=== PATIENT | female | born 1985 | race Caucasian/White ===

== ENCOUNTER 2022-07-29 07:10 | Outpatient (REF) | payer BC, SELFPAY ==
[2022-07-29 11:11] LABS: MANUAL DIFF FLAG NO
[2022-07-29 11:21] LABS: Appearance Urine Turbid; Color Urine Yellow; Glucose Urine UA Negative (Negative); Leukocyte Esterase Urine Moderate (2+) (Negative); Nitrite Urine Negative (Negative); Specific Gravity - Urine >= 1.030 (1.005-1.025); UMIC TRIGGER UACC YES; Urine Blood Negative (Negative); Urine Ketones Negative (Negative); Urine Protein Trace mg/dL (Neg-Trace)
[2022-07-29 11:28] LABS: Basophils Absolute Auto 0.1 X10*3/uL (0.0-0.2); Basophils Percent Auto 0.7 % (0-2); Eosinophils Absolute Auto 0.3 X10*3/uL (0.0-0.4); Hematocrit 47.1 % (37.0-47.0); Hemoglobin 15.3 g/dl (12.0-16.0); Imm Gran Abs Auto 0.02 X10*3/uL (0.00-0.03); Imm Gran Pct Auto 0.3 % (0.0-0.4); Lymphocytes Absolute Auto 2.2 X10*3/uL (1.2-4.9); Lymphocytes Percent Auto 30.2 % (20-40); Mean Corpuscular HGB Conc 32.5 g/dl (31.0-35.0); Mean Corpuscular Hemoglobin 28.2 pg (27.0-33.0); Mean Corpuscular Volume 86.7 fL (80.0-98.0); Mean Platelet Volume 11.1 fL (9.4-12.3); Monocytes Absolute Auto 0.5 X10*3/uL (0.1-1.2); Monocytes Percent Auto 6.7 % (2-11); Neutrophils Absolute Auto 4.2 x10*3/uL (2.0-8.3); Neutrophils Percent Auto 58.1 % (45-73); Platelet Count 310 X10*3/uL (160-400); Red Blood Count 5.43 X10*6/uL (4.20-5.50); Red Cell Distribution Width 13.2 % (11.0-16.0); White Blood Count 7.3 X10*3/uL (4.8-10.8)
[2022-07-29 11:28] LABS: Bacteria Urine 4+ (None Seen); Hyaline Casts Urine 0-2 /LPF (0-2); Squamous Epithelial Cell Urine >20 /HPF (0-2); UACC Culture Trigger YES
[2022-07-29 12:03] LABS: Alanine Aminotransferase 19 U/L (0-31); Albumin Level 4.3 g/dL (3.5-5.0); Alkaline Phosphatase 57 U/L (39-117); Anion Gap 9 (12-20); Aspartate Amino Transferase 15 U/L (5-31); Bilirubin Total 0.4 mg/dL (0.0-1.0); Blood Urea Nitrogen 13 mg/dL (9-16); Calcium 9.5 mg/dL (8.4-10.2); Carbon Dioxide 28 mmol/L (22-29); Chloride 107 mmol/L (96-108); Cholesterol 176 mg/dL; Estimated Glomerular Filt Rate > 60; Glucose Fasting 94 mg/dL (60-99); HDL Cholesterol 43 mg/dL; LDL Cholesterol Calculated 109 mg/dl; Sodium 139 mmol/L (135-145); TSH reflex Free T4 1.96 uIU/mL (0.32-4.0); Total Protein 7.3 g/dL (6.5-8.0); Triglycerides 121 mg/dL
== END 2022-07-29 07:11 | disposition home or self-care (01) ==
LOC: HO.HMGCLDS 07:10
PROVIDERS: PCP Nurse Practitioner Family; Visit Provider Nurse Practitioner Family
DX: Z00.00 Encounter for general adult medical examination without abnormal findings (principal); R82.90 Unspecified abnormal findings in urine; E66.01 Morbid (severe) obesity due to excess calories
CPT/HCPCS: 36415; 80053; 80061; 81001; 84443; 85025; 87086

== ENCOUNTER → 2022-08-12 10:29 | Outpatient (BNVA) | payer BC, SELFPAY | PROVIDERS: PCP Nurse Practitioner Family; Visit Provider Physician Assistant Surgical ==

== ENCOUNTER 2022-09-22 12:49 | Outpatient (AMB) | payer BC, SELFPAY ==
--- NOTE | 2022-09-22 12:51 | A.OFFVIS_ITS ---
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 She heard about our program from social media. Her goal is to lose weight and achieve a healthy lifestyle. She reports first being concerned about her weight 16 years ago, highest weight to date was 252. Current weight is 247.2 with a BMI of 48.3. She has tried multiple methods of weight loss including fad diets without permanent results. She lives with her mom and . 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 She wakes at:?6 am, and goes to bed at?10 pm. Dinner is at 6 pm. Breakfast: breakfast wrap AM snack: protein bar (kodiak) Lunch: salad or leftovers from dinner PM snack: popcorn or another bar Dinner: chicken, steak, rice, pasta, veg After dinner: skip Other snacks: frozen bar, candy bar Liquids: 64 oz water, 1-2 cans coke per week, cran or pineapple juice Alcohol/marijuana/tobacco intake: rare etoh, no cannabis, no tobacco Exercise: gym membership [employer] and electric bike. GERD score: 2 JOVON score: 1 ESS score: 7 QOL score: 79 PFSH Surgical History Hx of hand surgery Family History Mother No problems noted. Father Diabetes Brother No problems noted. Son No problems noted. Daughter Asthma Social History Housing: House Alcohol intake: current Alcohol intake frequency: holidays/special occasions only Patient Tobacco Use Status: Former Tobacco user Quit Date: 20 years ago e-Cigarette/Vaping Use: Never Used Second Hand Smoke Exposure: No service: No Current occupational status: employed Current occupation: [employer] Current occupational exposures/hazards: Yes Cognitive needs: No Hearing needs: No Vision needs: No Review of Systems Const All systems reviewed & are unremarkable except as noted in HPI and below Physical Exam Vital Signs: Last Vital Signs Temp 98.6 F 09/22/22 12:55 Pulse 96 09/22/22 12:55 BP 168/81 H 09/22/22 12:55 Pulse Ox 96 09/22/22 12:55 Oxygen Delivery Method Room Air 09/22/22 12:55 BMI result Body Mass Index 48.0 Const General: cooperative, healthy appearing and no acute distress Orientation/consciousness: patient oriented x3 HEENT Head: Yes normal to inspection Ears: hearing grossly normal bilaterally General nose exam: Normal external nose present Face and sinus: Yes normal facial exam Eyes General: appearance normal, both eyes and all related structures Resp Effort & Inspection: normal respiratory effort Auscultation: clear to auscultation bilaterally Cardio Rate: regular rate Rhythm: regular rhythm Heart sounds: S1 normal heart sound present and S2 normal heart sound present GI Inspection: Yes normal to inspection, No distended and Yes obesity Palpation (GI): Soft to palpation, nontender and no guarding Auscultation: normal bowel sounds Skin General skin exam: no rashes or lesions noted Neuro General: patient oriented x3 Extrem General: No edema Psych Appearance: grossly normal Mental Status: mental status grossly normal Speech and movement: Normal speech and movement present Affect: normal affect Attitude: cooperative Assessment & Plan Assessment & Plan (1) Morbid obesity: Code(s): E66.01 - Morbid (severe) obesity due to excess calories Plan: This is a?37 yo female who will start our SWL program to prepare for bariatric surgery.? Blood work, h pylori , CXR, ECG, Abd US and UGI have been ordered. She is being scheduled for RD and BH initial consultations. She will start SWL classes and watch the first three videos before her next appointment. ? Adequate sleep of 7-8 hours per night discussed, awakening at 6 am and going to bed around 10 pm ? You have already purchased a body composition scale so it will be important and check weight weekly. The best time to do this is first thing in the morning after going to the bathroom. 1. Nutritional counseling: Be sure to careful read the number of scoops per shake Start with 3 Orgain shakes ([employer], [employer], [employer], [employer], Say2me) First shake, (2 scoops in 8 oz low fat unsweetened almond milk or water, may add ice if you wish) at 7am-9am, Second shake (1 scoop in 8 oz unsweetened almond milk) at 11am-1pm 1 protein bar (Fulfil bars at [employer], [employer], or [employer]) at 3pm-5pm. Dinner at 6pm (9 forks of protein and 9 forks of salad/vegetables). Meal to include lean meat (beef, fish, pork, turkey, chicken), cooked vegetables or a salad with olive oil and/or fruits (berries, pears, apples, kiwi). Avoid salt, breads, potatoes, rice, pasta, desserts. Another shake with 1 scoop in 8 oz unsweetened almond milk at 8pm-10pm. Try to drink 64 oz of water daily and avoid soda and juices. ?2. Each shake would be drunk slowly, like coffee in a period of 2 hours. ?3. Cut each bar in 4 pieces and eat each piece in 30 min ?to make each bar last 2 hours. ?4. I emphasized the importance of measuring accurately the food portion and measure it carefully when serving the food on the plate ?5. The meal portions include 9 full-size forks of meat and 9 full-size forks of salad. You always eat the meat portion but you can replace up to half of the forks of salad/vegetables with rice, potatoes or pasta, or a fruit ?if you like. The less you do it the better weight loss will be. ?6. One full-size fork is what can be scooped on the fork without falling aside and not what can be bit with the fork. Use regular forks like those you find in a typical restaurant. ?7.? Please send me weight measurements as soon as possible and then once a week. Always include your diet and exercise plan. Alternatively come weekly at [facility] for weight checks and send me the measurements. ?8. Exercise counseling: Begin by watching a stretching for beginners video. Start slowly and begin to stretch your muscles. You should do this before and after each exercise session to prevent injury. Please continue to go to [facility] [facility] near your home. Ask the assistant store manager trainee or one of the trainers how to use the machines if you are unfamiliar with them. Start elliptical with a resistance of 2. Increase resistance by 1 every 3 min to your most comfortable resistance with a max resistance of 8. Reduce the resistance by 1 every 3 minutes back down to 2 and repeat cycles for 300 calories. Alternatively, start treadmill with a speed of 3.0 and incline of 0, increasing incline by 1 every 3 minutes to the highest comfortable level (max 6 for now) then decrease in the same fashion. Repeat process to a goal of 300 calories. Goal of 2000 calories burned or more weekly. You may also consider use of the stationary bike. The easiest would be to chose the fat-burn or interval training program on the machine and do this until you reach the 300 calorie goal. Alternatively, you can manually adjust the resistance in a similar fashion as mentioned above, (resistance of 2-8 with a goal speed of 12 mph). Tracking calories is essential. 9. Alternatively start walking outside daily, tracking calories with a goal of 300 calories per day, daily. You can download the jose manuel [employer] which can track your time, distance and calories while walking outside. You press start in the jose manuel when you start and then stop when you are finished. 10.? It is important to avoid for at least 18 months postoperatively and it has been discussed at the information session 11. Please get labs, EKG and chest X-Ray within 1 week. 12. Discussed and answered all questions regarding?obtained consent to participate in the [place] [facility]?Registry. 13. Please follow the diet plan exactly, without any change. If you do not like something about the plan or you feel hungry, you need to communicate with me so I can help you revise the plan. You should not change the plan yourself. Text me at [phone] 14. Goal is to lose at least 12 pounds in the first month 15. Goal is to lose 10% of your weight before surgery, which is about 24 lbs. Ultimate weight goal: 222 lbs before surgery Patient is morbidly obese and is not considered stable at this time.?I spent a total of 70 minutes reviewing/updating records, examining the patient and counseling the patient on weight management as detailed above. Orders: Orders Vitamin B12 and Folate Today E66.01 - Morbid (severe) obesity due to excess calories Comprehensive Met. Panel Today E66.01 - Morbid (severe) obesity due to excess calories C Reactive Protein Today E66.01 - Morbid (severe) obesity due to excess calories Ferritin Today E66.01 - Morbid (severe) obesity due to excess calories Hemoglobin A1c Today E66.01 - Morbid (severe) obesity due to excess calories Insulin Today E66.01 - Morbid (severe) obesity due to excess calories IRON PROFILE Today E66.01 - Morbid (severe) obesity due to excess calories Lipid Panel Today E66.01 - Morbid (severe) obesity due to excess calories PTHI Today E66.01 - Morbid (severe) obesity due to excess calories TSH reflex Free T4 Today E66.01 - Morbid (severe) obesity due to excess calories Vitamin A Today E66.01 - Morbid (severe) obesity due to excess calories Vitamin B1 Today E66.01 - Morbid (severe) obesity due to excess calories Vitamin D 25-OH Total Today E66.01 - Morbid (severe) obesity due to excess calories Zinc Today E66.01 - Morbid (severe) obesity due to excess calories ECG 12 lead EKG Today E66.01 - Morbid (severe) obesity due to excess calories FL upper GI w air Today E66.01 - Morbid (severe) obesity due to excess calories Complete Blood Count Auto Diff Today E66.01 - Morbid (severe) obesity due to excess calories H Pylori Breath Test Today E66.01 - Morbid (severe) obesity due to excess calories US abdomen comp w elastography Today E66.01 - Morbid (severe) obesity due to excess calories XR chest 2V Today E66.01 - Morbid (severe) obesity due to excess calories Referrals Behavioral Health Referral E66.01 - Morbid (severe) obesity due to excess calories Nutrition/Dietitian Referral E66.01 - Morbid (severe) obesity due to excess calories Coding Level of Care Code New Pt Level 5 (11429) Diagnoses Morbid obesity E66.01 Time Spent (min) 70
[2022-09-22 12:55] VITALS: BP 168/81; PULSE 96; TEMP 37; O2SAT 96; BMI 48.0
== END 2022-09-22 13:40 | disposition home or self-care (01) ==
PROVIDERS: PCP Nurse Practitioner Family; Visit Provider Physician Assistant Surgical
DX: E66.01 Morbid (severe) obesity due to excess calories (principal); Z68.42 Body mass index [BMI] 45.0-49.9, adult
CPT/HCPCS: 99205

== ENCOUNTER 2022-09-22 12:49 | Outpatient (REF) | payer BC, SELFPAY ==
[2022-09-25 10:12] LABS: H Pylori Breath Test Negative (Negative)
== END 2022-09-22 12:50 | disposition home or self-care (01) ==
LOC: HO.LNP 12:49
PROVIDERS: PCP Nurse Practitioner Family; Visit Provider Physician Assistant Surgical
DX: E66.01 Morbid (severe) obesity due to excess calories (principal)
CPT/HCPCS: 83013

== ENCOUNTER 2022-09-29 06:30 | Outpatient (REF) | payer BC, SELFPAY ==
--- NOTE | ~2022-09-29 | XR_ITS ---
EXAMINATION: XR CHEST CLINICAL INFORMATION: Obesity due to excess calories. COMPARISON: None available. TECHNIQUE: 2 views of the chest were obtained. FINDINGS: No significant abnormality is noted involving the heart, lungs, mediastinum, bony thorax or soft tissues. XR/XR chest 2V IMPRESSION: No acute cardiopulmonary process.
[2022-09-29 08:53] LABS: MANUAL DIFF FLAG NO
[2022-09-29 08:54] LABS: Appearance Urine Cloudy; Color Urine Yellow; Glucose Urine UA Negative (Negative); Leukocyte Esterase Urine Moderate (2+) (Negative); Nitrite Urine Negative (Negative); PH 5.5 (5.0-9.0); Specific Gravity - Urine >= 1.030 (1.005-1.025); UMIC TRIGGER UACC YES; Urine Blood Moderate (2+) (Negative); Urine Ketones 15 mg/dL (Negative); Urine Protein Trace mg/dL (Neg-Trace)
[2022-09-29 09:00] LABS: Basophils Percent Auto 0.5 % (0-2); Eosinophils Absolute Auto 0.3 X10*3/uL (0.0-0.4); Eosinophils Percent Auto 5.3 % (0-4); Hematocrit 44.1 % (37.0-47.0); Hemoglobin 14.6 g/dl (12.0-16.0); Imm Gran Abs Auto 0.02 X10*3/uL (0.00-0.03); Imm Gran Pct Auto 0.4 % (0.0-0.4); Lymphocytes Absolute Auto 1.6 X10*3/uL (1.2-4.9); Lymphocytes Percent Auto 29.8 % (20-40); Mean Corpuscular HGB Conc 33.1 g/dl (31.0-35.0); Mean Corpuscular Hemoglobin 27.5 pg (27.0-33.0); Mean Corpuscular Volume 83.1 fL (80.0-98.0); Mean Platelet Volume 10.8 fL (9.4-12.3); Monocytes Absolute Auto 0.4 X10*3/uL (0.1-1.2); Monocytes Percent Auto 7.8 % (2-11); Neutrophils Absolute Auto 3.1 x10*3/uL (2.0-8.3); Neutrophils Percent Auto 56.2 % (45-73); Platelet Count 293 X10*3/uL (160-400); Red Blood Count 5.31 X10*6/uL (4.20-5.50); Red Cell Distribution Width 12.7 % (11.0-16.0); White Blood Count 5.5 X10*3/uL (4.8-10.8)
[2022-09-29 09:03] LABS: Bacteria Urine 3+ (None Seen); Hyaline Casts Urine 0-2 /LPF (0-2); RBC Urine 0-2 /HPF (0-2); Renal Epithelial Cells Urine Present; Squamous Epithelial Cell Urine >20 /HPF (0-2); Transitional Epi Cells Urine Present; UACC Culture Trigger YES; WBC Urine 21-50 /HPF (0-5)
[2022-09-29 09:24] LABS: Estimated Average Glucose 97 mg/dL
[2022-09-29 09:53] LABS: Alanine Aminotransferase 19 U/L (0-31); Albumin Level 4.3 g/dL (3.5-5.0); Alkaline Phosphatase 57 U/L (39-117); Anion Gap 12 (12-20); Aspartate Amino Transferase 20 U/L (5-31); Bilirubin Total 0.6 mg/dL (0.0-1.0); Blood Urea Nitrogen 14 mg/dL (9-16); C Reactive Protein 0.32 mg/dL (< or = 0.50); Calcium 9.4 mg/dL (8.4-10.2); Carbon Dioxide 25 mmol/L (22-29); Chloride 106 mmol/L (96-108); Cholesterol 152 mg/dL; Estimated Glomerular Filt Rate > 60; Glucose Random 87 mg/dL (60-115); HDL Cholesterol 34 mg/dL; Iron 86 mcg/dL (30-160); LDL Cholesterol Calculated 99 mg/dl; Percent Iron Saturation 34 % (15-50); Sodium 139 mmol/L (135-145); Total Iron Binding Capacity 254 mcg/dL (228-428); Total Protein 7.3 g/dL (6.5-8.0); Triglycerides 99 mg/dL; Unsaturated Iron Binding 168 ug/dL
[2022-09-29 10:09] LABS: Ferritin 118 ng/mL (10-122); Insulin 9 uU/mL (2-29); TSH reflex Free T4 1.59 uIU/mL (0.32-4.0); Vitamin D 25-OH Total 44.2 ng/mL (>30)
[2022-09-29 10:21] LABS: Folate 12.6 ng/mL (> or = 4.0); Vitamin B12 423 pg/mL (200-900)
[2022-10-01 22:08] LABS: Calcium (PTHI) 9.4 mg/dL (8.6-10.2); PTHI 27 pg/mL (16-77)
[2022-10-02 16:59] LABS: Zinc 85 mcg/dL (60-130)
[2022-10-03 17:48] LABS: Vitamin A 38 mcg/dL (38-98)
[2022-10-05 06:18] LABS: Vitamin B1 11 nmol/L (8-30)
== END 2022-09-29 06:31 | disposition home or self-care (01) ==
LOC: HO.HMGCX 06:30
PROVIDERS: PCP Nurse Practitioner Family; Visit Provider Physician Assistant Surgical
DX: E66.01 Morbid (severe) obesity due to excess calories (principal); R82.90 Unspecified abnormal findings in urine
CPT/HCPCS: 36415; 71046; 80053; 80061; 81001; 82306; 82607; 82728; 82746; 83036; 83525; 83540; 83970; 84425; 84443; 84590; 84630; 85025; 86140; 87086; 87147

== ENCOUNTER → 2022-09-29 15:16 | Outpatient (REF) | payer BC, SELFPAY ==
--- NOTE | 2022-09-29 15:23 | ECG_ITS ---
Test Reason : MORBID OBESITY Blood Pressure : / mmHG Vent. Rate : 085 BPM Atrial Rate : 085 BPM P-R Int : 148 ms QRS Dur : 086 ms QT Int : 362 ms P-R-T Axes : 060 -07 028 degrees QTc Int : 430 ms Normal sinus rhythm Cannot rule out Anterior infarct , age undetermined Abnormal ECG No previous ECGs available Referred By: Dallin Orellana Electronically Signed By:Ray Paez
== END ==
LOC: HO.CARD 15:16
PROVIDERS: PCP Nurse Practitioner Family; Visit Provider Physician Assistant Surgical
DX: E66.01 Morbid (severe) obesity due to excess calories (principal)
CPT/HCPCS: 93005

== ENCOUNTER → 2022-09-29 15:23 | Outpatient (BNV) | payer BC, SELFPAY | PROVIDERS: PCP Nurse Practitioner Family; Visit Provider Internal Medicine Cardiovascular Disease | DX: R94.31 Abnormal electrocardiogram [ECG] [EKG] (principal) | CPT/HCPCS: 93010 ==

== ENCOUNTER 2022-10-12 08:51 | Outpatient (AMB) | payer BC, SELFPAY ==
--- NOTE | 2022-10-12 09:04 | MHC.AMNUTRGE ---
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 She has slipped up a few times, went to the movies and got popcorn, this past weekend had a lemonade her boyfriend brought her. Struggles the most on the weekends 2 Orgain shakes, 2 scoops each 1 fullfill protein bar dinner: 9 forks protein, 9 forks veg - usually chicken, beef Exercise: 10 miles , 2x per week . Hasn't gone to the gym yet. Owes a lot of money at [employer] . 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 Previous weight loss methods attempted herbalife (size 22 to 12-14) lost 20 and regain 15 pounds - stopped because expensive Dietary counseling reduction Who buys your food self and parent (stepmother ) Who prepares/cooks your food self and parent (stepmother ) Meal frequency regular: breakfast (breakfast burrito , or crossiant ), lunch (leftovers 8oz pineapple juice), dinner (starch, protein and veg ) and snacks (3pm skinny pop) Lifestyle Eating out rarely or never Food frequency Dairy: daily, Fruit: daily, Vegetables: daily, Grains/pasta/breads/cereal (carbs): daily, Meats/poultry/fish (protein): daily, Water: daily, Soda: never (once per week), Juice: daily and Coffee: daily Diagnosis Nutrition problem #1 overweight/obesity As related to (etiology) #1 excess energy intake and physical inactivity As evidenced by (sign/symptom) #1 high BMI Monitoring/Goals Nutrition problem monitoring total energy intake, level of knowledge/skill, total PRO intake, total CHO intake, weight and oral fluids Outcome progress progressing Learning/Education Readiness to learn excellent Stages of change action Educational materials provided Yes Most Recent Diabetes Results: Cholesterol 152 mg/dL 09/29/22 HDL Cholesterol 34 mg/dL 09/29/22 Triglycerides 99 mg/dL 09/29/22 Creatinine 0.86 mg/dL (0.5-1.4) 09/29/22 Blood Urea Nitrogen 14 mg/dL (9-16) 09/29/22 Sodium 139 mmol/L (135-145) 09/29/22 Potassium 4.0 mmol/L (3.3-5.1) 09/29/22 Chloride 106 mmol/L (96-108) 09/29/22 Carbon Dioxide 25 mmol/L (22-29) 09/29/22 Calcium 9.4 mg/dL (8.4-10.2) 09/29/22 AST 20 U/L (5-31) 09/29/22 ALT 19 U/L (0-31) 09/29/22 Total Protein 7.3 g/dL (6.5-8.0) 09/29/22 Albumin 4.3 g/dL (3.5-5.0) 09/29/22 [facility] History Hx of hand surgery Family History Mother No problems noted. Father Diabetes Brother No problems noted. Son No problems noted. Daughter Asthma Social History Housing: House Alcohol intake: current Alcohol intake frequency: holidays/special occasions only Patient Tobacco Use Status: Former Tobacco user Quit Date: 20 years ago e-Cigarette/Vaping Use: Never Used Second Hand Smoke Exposure: No service: No Current occupational status: employed Current occupation: [email or web address] Current occupational exposures/hazards: Yes Cognitive needs: No Hearing needs: No Vision needs: No Assessment & Plan Assessment & Plan (1) Morbid obesity: Code(s): E66.01 - Morbid (severe) obesity due to excess calories Patient Instructions: is doing well. gave protein bar list with options . we discussed how to manage social situations and situations outside her normal routine. complete classes, f/u with in 1 month 11/12 3:30 Coding Level of Care Code Nutr Indiv Intake (01033) Diagnoses Morbid obesity E66.01 Time Spent (min) 45
[2022-10-12 09:12] VITALS: BMI 46.3
== END 2022-10-12 09:41 | disposition home or self-care (01) ==
PROVIDERS: PCP Nurse Practitioner Family; Referring Provider Physician Assistant Surgical; Visit Provider Dietitian, Registered
DX: E66.01 Morbid (severe) obesity due to excess calories (principal)

== ENCOUNTER → 2022-10-12 08:51 | Outpatient (BNVA) | payer BC, SELFPAY | PROVIDERS: PCP Nurse Practitioner Family; Referring Provider Physician Assistant Surgical; Visit Provider Dietitian, Registered | DX: E66.01 Morbid (severe) obesity due to excess calories (principal); Z68.42 Body mass index [BMI] 45.0-49.9, adult; Z71.3 Dietary counseling and surveillance | CPT/HCPCS: 97802 ==

== ENCOUNTER 2022-10-21 14:12 | Outpatient (AMB) | payer BC, SELFPAY ==
--- NOTE | 2022-10-21 14:23 | MHC.WMTHER ---
Intake Intake Visit Reasons: (OV) BH Intake Allergies amoxicillin Adverse Reaction (Mild, Verified 09/22/22 12:54) Abdominal Pain Penicillins Adverse Reaction (Mild, Verified 09/22/22 12:54) Abdominal Pain PFSH Surgical History Hx of hand surgery Family History Mother No problems noted. Father Diabetes Brother No problems noted. Son No problems noted. Daughter Asthma Social History Housing: House Alcohol intake: current Alcohol intake frequency: holidays/special occasions only Patient Tobacco Use Status: Former Tobacco user Quit Date: 20 years ago e-Cigarette/Vaping Use: Never Used Second Hand Smoke Exposure: No service: No Current occupational status: employed Current occupation: [employer] Current occupational exposures/hazards: Yes Cognitive needs: No Hearing needs: No Vision needs: No Behavioral Health Assessment Weight Management Therapy Therapy Notes Details Pt is looking to have weight loss surgery to help improve her health and quality of life. She is currently not in therapy and was on a waitlist since her separation from her ex last year but was denied due to her insurance. She reported being in therapy in the past when she was in college and marriage counseling with her . No history of problems with drugs or alcohol and she has not taken any medication for depression. Patient reported some depression Presenting Concerns Referral Source provider Reason for referral weight loss surgery evaluation Precipitating Event obesity Living Situation Current Living Situation Relative's/Guardian's Jerzy At risk of losing current housing? No Satisfied with current living situation? Yes Comments Patient lives with her mother and her mother's . Food/Weight/Diet Expectations of change weight loss and maintenance History/Relationship with food She reported eating generally healthy, has a sweet tooth, also would eat popcorn as a snack often, for years prior would drink soda. Would drink coffee with sugar and almond milk. No late night eating and some boredom eating and grazing. History/Relationship with weight Pt stated that she has struggled with her weight she had children 18 years ago and was in a bad rel. for many years. She reported being slightly overweight as a young adult and very active as a teenager. History/Relationship with dieting various diets including [place] Binge Eating Do you frequently eat large amounts of food in short periods of time, not feeling physically hungry? No Do you feel out of control when you eat a large amount of food in a short period of time? No Do you eat large amounts of food rapidly and typically alone? No Night Eating Do you wake up at least once during the night to eat? No If you wake up in the night, do you find that it is necessary to eat something in order to fall back asleep? No Do you have little or no appetite in the morning and feel very hungry in the evening, often overeating between dinner and when you go to bed? No Social History Family history and relationship Patient has two children ages 17, and 18 who live with their father as of this past year. She stated that she is trying to save money to get from her ex of 18 years. Her children have limited contact with her at this time. 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 none reported Education Highest grade completed college Preferred learning style Auditory, Verbal, Written, Learn by doing and Visual Currently enrolled in educational program? No Interested in further educational program? 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 No Meaningful activities walking Financial Situation Describe current financial situation Often struggles with finance Financial assistance? None Service Service? No Mental Health and Addiction Treatment Current/Past substance abuse? No Current/Past addictive behavior concerns? No Medical and Physical Health Summary Physical exam in the last year? Yes Pain Screening Current pain? No Pain in the last few months? No Medications Is the patient compliant with medications? Yes Does the patient have Walker Guardian in place? Not applicable Does the patient use complimentary health approaches? No Trauma/Abuse History History of trauma? Yes Questionnaires PHQ-9 Over the last 2 weeks, how often have you been bothered by any of the following problems? 1. Little interest or pleasure in doing things: not at all 2. Feeling down, depressed, or hopeless: several days 3. Trouble falling or staying asleep, or sleeping too much: more than half the days 4. Feeling tired or having little energy: more than half the days 5. Poor appetite or overeating: several days 6. Feeling bad about yourself - or that you are a failure or have let yourself or your family down: not at all 7. Trouble concentrating on things, such as reading the newspaper or watching television: several days 8. Moving or speaking so slowly that other people could have noticed. Or the opposite - being so fidgety or restless that you have been moving around a lot more than usual: not at all 9. Thoughts that you would be better off or of hurting yourself in some way: not at all Total score: 7 Source: Developed by Drs. Julio Fournier, Augusta Sharpe, Moe Culver and colleagues, with an educational shala from [employer]. Binge Eating Scale Group 1 A. I don't feel self-conscious about my wt. or body size when I'm with others. B. I feel concerned about how I look to others, but it normally does not make me fell disappointed with myself C. I do get self-conscious about my appearance and wt. which makes me feel disappointed in myself. D. I feel very self-conscious about my wt. and frequently I feel intense shame and disgust for myself. I try to avoid social contacts because of my self-consciousness. Response Group 1: B Group 2 A. I don't have any difficulty eating slowly in the proper manner. B. Although I seem to gobble down foods, I don't end up feeling stuffed because of eating to much. C. At times, I tend to eat quickly and then, I feel uncomfortably full afterwards. D. I have the habit of bolting down my food, without really chewing it. When this happens I usually feel uncomfortably stuffed because I've eaten to much. Response Group 2: A Group 3 A. I feel capable to control my eating urges when I want to. B. I feel like I have failed to control my eating more than the average person. C. I feel utterly helpless when it comes to feeling in control of my eating urges. D. Because I feel so helpless about controlling my eating I have become very desperate about trying to get control. Response Group 3: A Group 4 A. I don't have the habit of eating when I'm bored. B. I sometimes eat when I'm bored, but often I'm able to get busy and get my mind off food. C. I have a regular habit of eating when I'm bored, but occasionally, I can use some other activity to get my mind off eating. D. I have a strong habit of eating when I'm bored. Nothing seems to help me breath the habit. Response Group 4: B Group 5 A. I'm usually physically hungry when I eat something. B. Occasionally, I eat something on impulse even though I really am not hungry. C. I have the regular habit of eating foods, that I might not really enjoy, to satisfy a hungry feeling even though physically, I don't need the food. D. Although I'm not physically hungry, I get a hungry feeling in my mouth that only seems to be satisfied when I eat a food, like sandwich, that fills my mouth. Sometimes, when I eat the food to satisfy my mouth hunger, I then spit the food out so I won't gain weight. Response Group 5: A Group 6 A. I don't feel any guilt or self-hate after I overeat. B. After I overeat, occasionally I feel guilt or self-hate. C. Almost all the time I experience strong guilt or self-hate after I overeat. Response Group 6: A Group 7 A. I don't lose total control of my eating when dieting even after periods when I overeat. B. Sometimes when I eat a forbidden food on a diet, I feel like I blew it and eat even more. C. Frequently, I have the habit of saying to myself, I've blown it now, why not go all the way, when I overeat on a diet. When that happens I eat more. D. I have a regular habit of starting a strict diets for myself but I break the diets by going on an eating binge. My life seems to be either a feast or famine. Response Group 7: A Group 8 A. I rarely eat so much food that I feel uncomfortably stuffed afterwards. B. Usually about once a month, I each such a quantity of food, I end up feeling very stuffed. C. I have regular periods during the month when I eat large amounts of food, either at mealtime or at snacks. D. I eat so much food that I regularly feel quite uncomfortable after eating and sometimes a bit nauseous. Response Group 8: B Group 9 A. My level of calorie intake does not go up very high or go down very low on a regular basis. B. Sometimes after I overeat, I will try to reduce my caloric intake to almost nothing to compensate for the excess calories I've eaten. C. I have a regular habit of overeating during the night. It seems that my routine is not to be hungry in the morning but overeat in the evening. D. In my adult years, I have had week-long periods where I practically starve myself. This follows periods when I overeat. It seems I live a life of either feast or famine. Response Group 9: A Group 10 A. I usually am able to stop eating when I want to. I know when enough is enough. B. Every so often, I experience a compulsion to eat which I can't seem to control. C. Frequently, I experience strong urges to eat which I seem unable to control, but at other times I can control my eating urges. D. I feel incapable of controlling urges to eat. I have a fear of not being able to stop eating voluntarily. Response Group 10: A Group 11 A. I don't have any problem stopping eating when I feel full. B. I usually can stop eating when I feel full but occasionally overeat leaving me feeling uncomfortably stuffed. C. I have a problem stopping eating once I start and usually I feel uncomfortably stuffed after I eat a meal. D. Because I have a problem not being able to stop eating when I want, I sometimes have to induce vomiting to relieve my stuffed feeling. Response Group 11: A Group 12 A. I seem to eat just as much when I'm with others, Family social gatherings as when I'm by myself. B. Sometimes, when I'm with other persons, I don't eat as much as I want to eat because I'm self-conscious about my eating. C. Frequently, I eat only a small amount of food when others are present, because I'm very embarrassed about my eating. D. I feel so ashamed about overeating that I pick times to overeat when I know no one will see me. I feel like a closet eater. Response Group 12: A Group 13 A. I eat three meals a day with only an occasional between meal snack. B. I eat 3 meals a day, but I also normally snack between meals. C. When I am snacking heavily, I get in the habit of skipping regular meals. D. There are regular periods when I seem to be continually eating, with no planned meals. Response Group 13: A Group 14 A. I don't think much about trying to control unwanted eating urges. B. At least some of the time, I feel my thoughts are pre-occupied with trying to control my eating urges. C. I feel that frequently I spend much time thinking about how much I ate or about trying not to eat anymore. D. It seems to me that most of my waking hours are pre-occupied by thoughts about eating or not eating. I feel like I'm constantly struggling not to eat. Response Group 14: A Group 15 A. I don't think about food a great deal. B. I have strong craving for food but they last only for brief periods of time. C. I have days when I can't seem to think about anything else but food. D. Most of my days seem to be pre-occupied with thoughts about food. I feel like I live to eat. Response Group 15: A Group 16 A. I usually know whether or not I'm physically hungry. I take the right portion of food to satisfy me. B. Occasionally, I feel uncertain about knowing whether or not I'm physically hungry. A these times it's hard to know how much food I should take to satisfy me. C. Even though I might know how many calories I should eat, I don't have any idea what is a normal amount of food for me. Response Group 16: A Binge Eating Score: 3 Score less than 17 Minimal Risk Score between 18-26 Moderate Risk Score between 27-46 High Risk Assessment & Plan Assessment & Plan (1) Depression, unspecified: Code(s): F32.A - Depression, unspecified (2) Morbid obesity: Code(s): E66.01 - Morbid (severe) obesity due to excess calories Plan Patient reported some family stressors over the years that have caused her emotional distress, not other serious barriers reported. She will be seen again for therapeutic support and is cleared for surgery when ready. Coding Level of Care Code Tele Psy Diag Eval (36829) Diagnoses Depression, unspecified F32.A Morbid obesity E66.01 Time Spent (min) 45
== END 2022-10-21 15:10 | disposition home or self-care (01) ==
PROVIDERS: PCP Nurse Practitioner Family; Visit Provider Counselor Mental Health
DX: F33.1 Major depressive disorder, recurrent, moderate (principal); E66.01 Morbid (severe) obesity due to excess calories; Z68.42 Body mass index [BMI] 45.0-49.9, adult
CPT/HCPCS: 90791

== ENCOUNTER → 2022-10-21 14:12 | Outpatient (BNVA) | payer BC, SELFPAY | PROVIDERS: PCP Nurse Practitioner Family; Visit Provider Counselor Mental Health ==

== ENCOUNTER 2022-10-27 15:49 | Outpatient (AMB) | payer BC, SELFPAY ==
--- NOTE | 2022-10-27 15:53 | A.OFFVIS_ITS ---
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 They were last seen in the office on 09/22/22, recorded weight at that time was 246 pounds, with a BMI of 48. Today's weight is 234.4 pounds and BMI is 45.8. There has been a weight loss of 12.8 pounds since initiating the surgical weight loss program on 09/22/22 with a total body weight loss of 5.1 %. Pre op work up completed as follows: SWL classes:? 05/30 BH appts: cleared-10/21/22 ? ? RD appts: f/u 11/12/22 Labs: 09/29/22-ok H. pylori: 09/22/22-neg CXR: 09/29/22-nad EK09/29/22-cannot r/o ant infarct - nuc stress test ordered 10/02/22, scheduled 11/02/22 ABD U/S: 12/18/22 UGI: 12/18/22 The patient reports things are going well. She has been parking farther away and taking stairs now.. Current meal plan includes: 3 Orgain shakes ([employer], [employer], [employer], [employer], [employer]) First shake, (2 scoops in 8 oz low fat unsweetened almond milk or water, may add ice if you wish) at 7am-9am, Second shake (2 scoop in 8 oz unsweetened almond milk) at? 11am-1pm 1 protein bar (Fulfil bars at Target, [facility], or [employer]) at 3pm-5pm. Dinner at 6pm (9 forks of protein and 9 forks of salad/vegetables). Drinking 64 oz of water Current exercise plan includes: outdoor biking 10-20 miles on weekend. approx 525-650 calories. Home videos during the week. planning on going to [employer] [facility] Surgical History Hx of hand surgery Family History Mother No problems noted. Father Diabetes Brother No problems noted. Son No problems noted. Daughter Asthma Social History Housing: House Alcohol intake: current Alcohol intake frequency: holidays/special occasions only Patient Tobacco Use Status: Former Tobacco user Quit Date: 20 years ago e-Cigarette/Vaping Use: Never Used Second Hand Smoke Exposure: No service: No Current occupational status: employed Current occupation: [employer] Current occupational exposures/hazards: Yes Cognitive needs: No Hearing needs: No Vision needs: No Review of Systems Const All systems reviewed & are unremarkable except as noted in HPI and below Physical Exam Const General: healthy appearing and no acute distress Resp Effort & Inspection: normal respiratory effort Auscultation: clear to auscultation bilaterally Cardio Rate: regular rate Rhythm: regular rhythm GI Auscultation: normal bowel sounds Extrem General: Yes normal to inspection Assessment & Plan Assessment & Plan (1) Morbid obesity: Code(s): E66.01 - Morbid (severe) obesity due to excess calories Plan: making good progress change meal plan to : 3 Orgain shakes ([employer], [employer], [employer], [employer]) First shake, (1.5 scoops in 8 oz low fat unsweetened almond milk or water, may add ice if you wish) at 7am-9am, Second shake (1.5 scoop in 8 oz unsweetened almond milk) at? 11am-1pm 1 protein bar (Fulfil bars at Target, [facility], or [employer]) at 3pm-5pm. Dinner at 6pm (8 forks of protein and 8 forks of salad/vegetables). -Told [address]-ok Increase exercise at [employer] to 300 luke per day rtc 1 month Coding Level of Care Code Est Pt Level 3 (69441) Diagnoses Morbid obesity E66.01
[2022-10-27 16:04] VITALS: BP 139/73; PULSE 94; TEMP 36.8; O2SAT 97; BMI 45.8
== END 2022-10-27 16:29 | disposition home or self-care (01) ==
PROVIDERS: PCP Nurse Practitioner Family; Visit Provider Physician Assistant Surgical
DX: E66.01 Morbid (severe) obesity due to excess calories (principal); Z68.42 Body mass index [BMI] 45.0-49.9, adult
CPT/HCPCS: 99213

== ENCOUNTER → 2022-10-27 15:49 | Outpatient (BNVA) | payer BC, SELFPAY | PROVIDERS: PCP Nurse Practitioner Family; Visit Provider Physician Assistant Surgical ==

== ENCOUNTER → 2022-11-02 07:52 | Outpatient (REF) | payer BC, SELFPAY ==
--- NOTE | ~2022-11-02 | NM_ITS ---
Exercise Myocardial perfusion study Indication: Abnormal EKG to evaluate for myocardial ischemia Technique: The patient was brought in for an exercise perfusion study on 11/02/2022. Patient performed exercise as per Kemal protocol and was injected 40 mCi of sestamibi was given intravenously one target HR was achieved. Images were obtained using the SPECT gamma camera interlaced with the gating device. Images were obtained in supine position. Resting perfusion study was performed on 11/04/2022. Patient was administered 40 mCi of sestamibi intravenously at rest. Images were then obtained in supine position. Images obtained with and without CT attenuation. Total DLP 137 mGy-cm. Images were processed with the software and compared side to side in short axis, horizontal long axis and vertical long axis views. Findings: The stress perfusion study showed non attenuated images show normal uptake of radiotracer in all segments of LV myocardium. Attenuation corrected images show mildly reduced uptake in the septum and distal anterior wall and apex of the LV myocardium.. The gated study shows normal LV systolic function with calculated LVEF of 73%. LV cavity is normal in size. The gated study shows normal systolic wall thickening and contraction of all segments. There is no transient ischemic dilation. Resting study shows no change in perfusion at stress perfusion study. Gating at rest reveals normal systolic wall motion with ejection fraction at 70%. The findings are consistent with normal myocardial perfusion. NM/NM cardiolite stress test Impression: 1. Normal myocardial perfusion 2. Gated LVEF is 73% 3. Transient ischemic dilatation not present Stress EKG is negative for ischemia
--- NOTE | 2022-11-02 07:54 | CA_ITS ---
Acquisition Time: 2022-11-02 07:57:38 Total Exercise Time: 00:09:18 Test Indications: Abnormal ECG Medications: ALBUTEROL Protocol: KELLEY Max HR: 179 BPM 98% of Pred: 181 BPM Max BP: 140/070 mmHG Max Work Load: 10.5 METS Exercise stress test exercise 9 min 18 sec of Kelley protocol achieving 98% MPHR and 10.5 METs, without anginal symptoms, with vetricular cuplets, with normotensive response to exercise, without EKG changes. Nuclear images pending. Test reviewed with Dr. Plasencia. Referred By: Dallin Orellana Overread By: JACQUI PLASENCIA
== END ==
LOC: HO.CARD 07:52
PROVIDERS: PCP Nurse Practitioner Family; Visit Provider Physician Assistant Surgical
DX: R94.31 Abnormal electrocardiogram [ECG] [EKG] (principal)
CPT/HCPCS: 78452; 93017; A9500

== ENCOUNTER → 2022-11-02 07:54 | Outpatient (BNV) | payer BC, SELFPAY | PROVIDERS: PCP Nurse Practitioner Family; Visit Provider Internal Medicine | DX: R94.31 Abnormal electrocardiogram [ECG] [EKG] (principal) | CPT/HCPCS: 78452; 93016; 93018 ==

== ENCOUNTER → 2022-11-12 15:23 | Outpatient (BNVA) | payer BC, SELFPAY | PROVIDERS: PCP Nurse Practitioner Family; Visit Provider Dietitian, Registered | DX: E66.9 Obesity, unspecified (principal); Z71.3 Dietary counseling and surveillance | CPT/HCPCS: 97803 ==

== ENCOUNTER 2022-11-18 15:51 | Outpatient (AMB) | payer BC, SELFPAY ==
--- NOTE | 2022-12-16 14:44 | A.OFFWM_ITS ---
Intake Intake Visit Reasons: (OV) BH F/U Allergies amoxicillin Adverse Reaction (Mild, Verified 12/16/22 14:40) Abdominal Pain Penicillins Adverse Reaction (Mild, Verified 12/16/22 14:40) Abdominal Pain PFSH Surgical History Hx of hand surgery Family History Mother No problems noted. Father Diabetes Brother No problems noted. Son No problems noted. Daughter Asthma Social History Housing: House Alcohol intake: current Alcohol intake frequency: holidays/special occasions only Patient Tobacco Use Status: Former Tobacco user Quit Date: 20 years ago e-Cigarette/Vaping Use: Never Used Second Hand Smoke Exposure: No service: No Current occupational status: employed Current occupation: [employer] Current occupational exposures/hazards: Yes Cognitive needs: No Hearing needs: No Vision needs: No Behavioral Health Assessment Weight Management Therapy Therapy Notes Details Talked about personal and family struggles. Pt is looking to have weight loss surgery to help improve her health and quality of life. She is currently not in therapy and was on a waitlist since her separation from her ex last year but was denied due to her insurance. She reported being in therapy in the past when she was in college and marriage counseling with her . No history of problems with drugs or alcohol and she has not taken any medication for depression. Patient reported some depression Presenting Concerns Referral Source provider Reason for referral weight loss surgery evaluation Precipitating Event obesity Living Situation Current Living Situation Relative's/Guardian's Jerzy At risk of losing current housing? No Satisfied with current living situation? Yes Comments Patient lives with her mother and her mother's . Food/Weight/Diet Expectations of change weight loss and maintenance History/Relationship with food She reported eating generally healthy, has a sweet tooth, also would eat popcorn as a snack often, for years prior would drink soda. Would drink coffee with sugar and almond milk. No late night eating and some boredom eating and grazing. History/Relationship with weight Pt stated that she has struggled with her weight she had children 18 years ago and was in a bad rel. for many years. She reported being slightly overweight as a young adult and very active as a teenager. History/Relationship with dieting various diets including Herbalife Binge Eating Do you frequently eat large amounts of food in short periods of time, not feeling physically hungry? No Do you feel out of control when you eat a large amount of food in a short pe riod of time? No Do you eat large amounts of food rapidly and typically alone? No Night Eating Do you wake up at least once during the night to eat? No If you wake up in the night, do you find that it is necessary to eat something in order to fall back asleep? No Do you have little or no appetite in the morning and feel very hungry in the evening, often overeating between dinner and when you go to bed? No Social History Family history and relationship Patient has two children ages 17, and 18 who live with their father as of this past year. She stated that she is trying to s ave money to get from her ex of 18 years. Her children have limited contact with her at this time. Parental/Familial environmental protection specialist obligations none Developmental history and status no issues Social support mom, father, step mother, grandparents, friends, boyfriend Cultural/Ethnic information Legal Involvement and History Current or historical involvement with the legal system? none reported Education Highest grade completed college Preferred learning style Auditory, Verbal, Written, Learn by doing and Visual Currently enrolled in educational program? No Interested in further educational program? 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 No Meaningful activities walking Financial Situation Describe current financial situation Often struggles with finance Financial assistance? None Service Service? No Mental Health and Addiction Treatment Current/Past substance abuse? No Current/Past addictive behavior concerns? No Medical and Physical Health Summary Physical exam in the last year? Yes Pain Screening Current pain? No Pain in the last few months? No Medications Is the patient compliant with medications? Yes Does the patient have Walker Guardian in place? Not applicable Does the patient use complimentary health approaches? No Trauma/Abuse History History of trauma? Yes Assessment & Plan Assessment & Plan (1) Depression, unspecified: Code(s): F32.A - Depression, unspecified (2) Morbid obesity: Code(s): E66.01 - Morbid (severe) obesity due to excess calories Plan Patient reported some family stressors over the years that have caused her emotional distress, not other serious barriers reported. She will be seen again for therapeutic support and is cleared for surgery when ready. Coding Level of Care Code Psytx 45 mins (23889) Diagnoses Depression, unspecified F32.A Morbid obesity E66.01 Time Spent (min) 45
== END 2022-11-18 16:58 | disposition home or self-care (01) ==
PROVIDERS: PCP Nurse Practitioner Family; Visit Provider Counselor Mental Health
DX: F33.1 Major depressive disorder, recurrent, moderate (principal); E66.01 Morbid (severe) obesity due to excess calories; Z68.41 Body mass index [BMI] 40.0-44.9, adult
CPT/HCPCS: 90834

== ENCOUNTER → 2022-11-18 15:51 | Outpatient (BNVA) | payer BC, SELFPAY | PROVIDERS: PCP Nurse Practitioner Family; Visit Provider Counselor Mental Health ==

== ENCOUNTER 2022-11-19 14:28 | Outpatient (AMB) | payer BC, SELFPAY ==
--- NOTE | 2022-11-19 14:33 | MHC.OFFVISWM ---
Intake VS Expanded 11/19/22 14:37 Height 5 ft Weight 222 lb BMI 43.4 BP 137/90 H Blood Pressure Location Rt brachial Blood Pressure Position Sitting Pulse 97 Pulse Source Pulse Oximeter Temp 97.8 F Temperature Source Temporal Artery Scan Pulse Oximetry 100 Oxygen Delivery Method Room Air Body Fat 96.8 Body Fat Percentage 43.6 Free Fat Mass 125.0 Muscle Mass 118.6 Visceral Mass 13.0 Water Mass 89.6 BMR 1,757 Intake Visit Reasons: (OV) F/U SWL Manager Commission Required: No Allergies amoxicillin Adverse Reaction (Mild, Verified 11/19/22 14:37) Abdominal Pain Penicillins Adverse Reaction (Mild, Verified 11/19/22 14:37) Abdominal Pain Medication List - Last Reconciled 11/19/22 by ROGER Gallo albuterol sulfate 90 mcg/actuation 2 puffs inhalation Q6H PRN HPI HPI Comments History of Present Illness Details The patient is a pleasant 37 year old female who returns to the clinic for pre-operative surgical weight loss management. They were last seen in the office on 10/27/22, recorded weight at that time was 234.4 pounds, with a BMI of 45.8. Today's weight is 222 pounds and BMI is 43.3. There has been a weight loss of 25.2 pounds since initiating the surgical weight loss program on 09/22/22 with a total body weight loss of 10.1 %. Pre op work up completed as follows: SWL classes:? 05/30 BH appts: cleared-10/21/22 ? ? RD appts: cleared-11/12/22 Labs: 09/29/22-ok H. pylori: 09/22/22-neg CXR: 09/29/22-nad EK09/29/22-cannot r/o ant infarct - nuc stress test ordered 10/02/22, scheduled 11/02/22-normal ABD U/S: 12/18/22 UGI: 12/18/22 The patient reports things are going well. She has been parking farther away and taking stairs now.. Current meal plan includes: 3 Orgain shakes ([employer], [employer], [facility], [employer], [employer]) First shake, (2 scoops in 8 oz low fat unsweetened almond milk or water, may add ice if you wish) at 7am-9am, Second shake (1 scoop in 8 oz unsweetened almond milk) at? 11am-1pm 1 protein bar (Fulfil bars at Target, CVS, or [employer]) at 3pm-5pm. Dinner at 6pm (8 forks of protein and 8 forks of salad/vegetables). -Told [address]-ok Drinking 64-80 oz of water Current exercise plan includes: outdoor biking 10-20 miles on weekend. approx 525-650 calories. Home videos during the week. gym, 2 x per week [employer], 20 min weights, 40 min cardio, 250 calories PFSH Surgical History Hx of hand surgery Family History Mother No problems noted. Father Diabetes Brother No problems noted. Son No problems noted. Daughter Asthma Social History Housing: House Alcohol intake: current Alcohol intake frequency: holidays/special occasions only Patient Tobacco Use Status: Former Tobacco user Quit Date: 20 years ago e-Cigarette/Vaping Use: Never Used Second Hand Smoke Exposure: No service: No Current occupational status: employed Current occupation: [employer] Current occupational exposures/hazards: Yes Cognitive needs: No Hearing needs: No Vision needs: No Physical Exam Vital Signs: Last Vital Signs Temp 97.8 F 11/19/22 14:37 Pulse 97 11/19/22 14:37 BP 137/90 H 11/19/22 14:37 Pulse Ox 100 11/19/22 14:37 Oxygen Delivery Method Room Air 11/19/22 14:37 BMI result Body Mass Index 43.4 Const General: healthy appearing and no acute distress Resp Effort & Inspection: normal respiratory effort Auscultation: clear to auscultation bilaterally Cardio Rate: regular rate Rhythm: regular rhythm GI Auscultation: normal bowel sounds Extrem General: Yes normal to inspection Assessment & Plan Assessment & Plan (1) Morbid obesity: Code(s): E66.01 - Morbid (severe) obesity due to excess calories Plan: has made excellent progress will refer to Dr Hills for further care continue current meal plan reminded of upcoming dx studies on 12/18 Coding Level of Care Code Est Pt Level 3 (97697) Diagnoses Morbid obesity E66.01
[2022-11-19 14:37] VITALS: BP 137/90; PULSE 97; TEMP 36.6; O2SAT 100; BMI 43.4
== END 2022-11-19 15:16 | disposition home or self-care (01) ==
PROVIDERS: PCP Nurse Practitioner Family; Visit Provider Physician Assistant Surgical
DX: E66.01 Morbid (severe) obesity due to excess calories (principal); Z68.41 Body mass index [BMI] 40.0-44.9, adult
CPT/HCPCS: 99213

== ENCOUNTER → 2022-11-19 14:28 | Outpatient (BNVA) | payer BC, SELFPAY | PROVIDERS: PCP Nurse Practitioner Family; Visit Provider Physician Assistant Surgical ==

== ENCOUNTER 2022-12-16 14:33 | Outpatient (AMB) | payer BC, SELFPAY ==
--- NOTE | 2022-12-16 16:22 | A.OFFWM_ITS ---
Intake Intake Visit Reasons: (OV) BH F/U Allergies amoxicillin Adverse Reaction (Mild, Verified 12/16/22 14:40) Abdominal Pain Penicillins Adverse Reaction (Mild, Verified 12/16/22 14:40) Abdominal Pain PFSH Surgical History Hx of hand surgery Family History Mother No problems noted. Father Diabetes Brother No problems noted. Son No problems noted. Daughter Asthma Social History Housing: House Alcohol intake: current Alcohol intake frequency: holidays/special occasions only Patient Tobacco Use Status: Former Tobacco user Quit Date: 20 years ago e-Cigarette/Vaping Use: Never Used Second Hand Smoke Exposure: No service: No Current occupational status: employed Current occupation: [employer] Current occupational exposures/hazards: Yes Cognitive needs: No Hearing needs: No Vision needs: No Behavioral Health Assessment Weight Management Therapy Therapy Notes Details Talked about personal and family struggles. Her rel. with her , her children, how she is now finally caring for herself. Pt is looking to have weight loss surgery to help improve her health and quality of life. She is currently not in therapy and was on a waitlist since her separation from her ex last year but was denied due to her insurance. She reported being in therapy in the past when she was in college and marriage counseling with her . No history of problems with drugs or alcohol and she has not taken any medication for depression. Patient reported some depression Presenting Concerns Referral Source provider Reason for referral weight loss surgery evaluation Precipitating Event obesity Living Situation Current Living Situation Relative's/Guardian's Jerzy At risk of losing current housing? No Satisfied with current living situation? Yes Comments Patient lives with her mother and her mother's . Food/Weight/Diet Expectations of change weight loss and maintenance History/Relationship with food She reported eating generally healthy, has a sweet tooth, also would eat popcorn as a snack often, for years prior would drink soda. Would drink coffee with sugar and almond milk. No late night eating and some boredom eating and grazing. History/Relationship with weight Pt stated that she has struggled with her weight she had children 18 years ago and was in a bad rel. for many years. She reported being slightly overweight as a young adult and very active as a teenager. History/Relationship with dieting various diets including Herbalife Binge Eating Do you frequently eat large amounts of food in short periods of time, not feeling physically hungry? No Do you feel out of control when you eat a large amount of food in a short period of time? No Do you eat large amounts of food rapidly and typically alone? No Night Eating Do you wake up at least once during the night to eat? No If you wake up in the night, do you find that it is necessary to eat something in order to fall back asleep? No Do you have little or no appetite in the morning and feel very hungry in the evening, often overeating between dinner and when you go to bed? No Social History Family history and relationship Patient has two children ages 17, and 18 who live with their father as of this past year. She stated that she is trying to save money to get from her ex of 18 years. Her children have limited contact with her at this time. Parental/Familial laboratory animal caretaker obligations none Developmental history and status no issues Social support mom, father, step mother, grandparents, friends, boyfriend Cultural/Ethnic information Legal Involvement and History Current or historical involvement with the legal system? none reported Education Highest grade completed college Preferred learning style Auditory, Verbal, Written, Learn by doing and Visual Currently enrolled in educational program? No Interested in further educational program? 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 No Meaningful activities walking Financial Situation Describe current financial situation Often struggles with finance Financial assistance? None Service Service? No Mental Health and Addiction Treatment Current/Past substance abuse? No Current/Past addictive behavior concerns? No Medical and Physical Health Summary Physical exam in the last year? Yes Pain Screening Current pain? No Pain in the last few months? No Medications Is the patient compliant with medications? Yes Does the patient have Walker Guardian in place? Not applicable Does the patient use complimentary health approaches? No Trauma/Abuse History History of trauma? Yes Assessment & Plan Assessment & Plan (1) Depression, unspecified: Code(s): F32.A - Depression, unspecified (2) Morbid obesity: Code(s): E66.01 - Morbid (severe) obesity due to excess calories Plan Patient reported some family stressors over the years that have caused her emotional distress, not other serious barriers reported. She will be seen again for therapeutic support and is cleared for surgery when ready. Coding Level of Care Code Psytx 45 mins (27448) Diagnoses Depression, unspecified F32.A Morbid obesity E66.01 Time Spent (min) 40
== END 2022-12-16 16:22 | disposition home or self-care (01) ==
PROVIDERS: PCP Nurse Practitioner Family; Visit Provider Counselor Mental Health
DX: F33.1 Major depressive disorder, recurrent, moderate (principal); E66.01 Morbid (severe) obesity due to excess calories; Z68.41 Body mass index [BMI] 40.0-44.9, adult
CPT/HCPCS: 90834

== ENCOUNTER 2022-12-16 14:33 | Outpatient (AMB) | payer BC, SELFPAY ==
--- NOTE | 2022-12-16 14:35 | MHC.OFFVISWM ---
Intake VS Expanded 12/16/22 14:42 BP 136/73 Blood Pressure Location Rt brachial Blood Pressure Position Sitting Pulse 89 Pulse Source Pulse Oximeter Temp 97.6 F Temperature Source Tympanic Pulse Oximetry 95 Oxygen Delivery Method Room Air Height 5 ft Weight 217 lb 12.8 oz BMI 42.5 Body Fat % 42.4 Body Fat Mass 92.2 Fat Free Mass 125.4 Visceral Fat Rating 12.0 Body Water % 41.2 Body Water Mass 89.8 Muscle Mass/Score 119.0 Basal Metabolic Rate/Score 1,755 Intake Visit Reasons: (OV) F/U SWL ([place]) Construction Inspector Required: No Air Bag Buffer: Air Bag Buffer offered & declined Allergies amoxicillin Adverse Reaction (Mild, Verified 12/16/22 14:40) Abdominal Pain Penicillins Adverse Reaction (Mild, Verified 12/16/22 14:40) Abdominal Pain Medication List - Last Reconciled 12/16/22 by Davin Hills MD albuterol sulfate 90 mcg/actuation 2 puffs inhalation Q6H PRN HPI HPI Comments History of Present Illness Details The patient is a pleasant 37 year old female who returns to the clinic for pre-operative surgical weight loss management. They were last seen in the office on 10/27/22, recorded weight at that time was 234.4 pounds, with a BMI of 45.8. Today's weight is 217.8 pounds and BMI is 42.5. There has been a weight loss of 29.2 pounds since initiating the surgical weight loss program on 09/22/22 with a total body weight loss of over 10%. Pre op work up completed as follows: SWL classes:? 05/30 BH appts: cleared-10/21/22 ? ? RD appts: cleared-11/12/22 Labs: 09/29/22-ok H. pylori: 09/22/22-neg CXR: 09/29/22-nad EK09/29/22-cannot r/o ant infarct - nuc stress test ordered 10/02/22, scheduled 11/02/22-normal ABD U/S: 12/18/22 UGI: 12/18/22 The patient reports things are going well. She has been parking farther away and taking stairs now.. Current meal plan includes: 3 Orgain shakes ([employer], [employer], [employer], [employer])First shake, (2 scoops in 8 oz low fat unsweetened almond milk or water, may add ice if you wish) at 7am-9am, Second shake (1 scoop in 8 oz unsweetened almond milk) at? 11am-1pm 1 protein bar (Fulfil bars at [employer], [facility], or [employer]) at 3pm-5pm.Dinner at 6pm (8 forks of protein and 8 forks of salad/vegetables). -Told [address]-ok Drinking 64-80 oz of water Current exercise plan includes: outdoor biking 10-20 miles on weekend. approx 525-650 calories. Home videos during the week. gym, 2 x per week [employer], 20 min weights, 40 min cardio, 250 calories PFSH Surgical History Hx of hand surgery Family History Mother No problems noted. Father Diabetes Brother No problems noted. Son No problems noted. Daughter Asthma Social History Housing: House Alcohol intake: current Alcohol intake frequency: holidays/special occasions only Patient Tobacco Use Status: Former Tobacco user Quit Date: 20 years ago e-Cigarette/Vaping Use: Never Used Second Hand Smoke Exposure: No service: No Current occupational status: employed Current occupation: [employer] Current occupational exposures/hazards: Yes Cognitive needs: No Hearing needs: No Vision needs: No Review of Systems Const All systems reviewed & are unremarkable except as noted in HPI and below Reports as per HPI Physical Exam On exam, the patient is nontoxic and is in good spirits Her sclera anicteric She is in no respiratory distress Abdomen is obese and soft with no tenderness Results Reviewed Results Reviewed: 09/29/22 labs Hb 14.5 N/N Fe WNL; Plts 293K, wbc 5.5 BUN 14, Cr 0.86 HbA1C 5.0 LFTs WNL CRP 0.32, Insulin 9, MVI WNL Lipids WNL Imaging CXR NAD Cardiolite stress test Nml; EF 73% Abd U/S elastography pending UGI pending Assessment & Plan Assessment & Plan (1) Morbid obesity: Code(s): E66.01 - Morbid (severe) obesity due to excess calories (2) Pain of back and lower extremity: Code(s): M54.9 - Dorsalgia, unspecified; M79.609 - Pain in unspecified limb (3) Abnormal EKG: Code(s): R94.31 - Abnormal electrocardiogram [ECG] [EKG] (4) Depression, unspecified: Code(s): F32.A - Depression, unspecified Plan The patient is congratulated on her healthy lifestyle changes which have resulted in a weight loss and she remains interested in laparoscopic sleeve gastrectomy. I also explained the possible need for hiatal hernia repair, intraoperative upper endoscopy and possible ventral hernia repair. The options of medical weight loss, gastric bypass and 2nd opinion were reviewed but declined. I reviewed the inherent risks of this procedure which include, but are not limited to: Bleeding that could require another operation or blood transfusion; the inherent risks of transfusion reaction infectious disease from blood transfusions; the risk of staple line leaks that could cause sepsis, multi-system organ failure and ; the risk of mesenteric or deep vein thrombosis of the lower extremities that could cause a fatal pulmonary embolism was reviewed; the risk of GERD that could require conversion to gastric bypass was discussed; the risk of recurrent hiatal hernia, especially in the setting of weight regain was reviewed. The risk of weight regain if maladaptive eating and sedentary behavior continue was discussed. The importance of proper diet and increased activity to augment surgical weight loss and the fact that no operation would result in weight loss of poor dietary decisions and sedentary behavior are resumed were discussed at length and apparently understood. The patient had the option of having a security systems engineer present and declined this option. No changes to the patient's current meal plan in the importance of increasing exercise at this time were discussed since the patient noted some difficulty and decreased exercise at this time. The patient will follow-up with me after her upper GI and abdominal ultrasound/elastography are complete. 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 I briefly reviewed the typical preoperative course including liver shrinking diet, 2 day bowel prep, overnight stay in the importance of hydration and ambulation to avoid DVT and PE. Activity restrictions for 6 weeks postoperatively were discussed and apparently understood. Patient's questions seemed to be satisfactorily answered and in the interval, she will write down any questions or bring a support person to her follow-up visit. Coding Level of Care Code Est Pt Level 4 (90864) Diagnoses Morbid obesity E66.01 Pain of back and lower extremity M54.9; M79.609 Abnormal EKG R94.31 Depression, unspecified F32.A
[2022-12-16 14:42] VITALS: BP 136/73; PULSE 89; TEMP 36.4; O2SAT 95; BMI 42.5
== END 2022-12-17 08:37 | disposition home or self-care (01) ==
PROVIDERS: PCP Nurse Practitioner Family; Visit Provider Surgery
DX: E66.01 Morbid (severe) obesity due to excess calories (principal); Z68.41 Body mass index [BMI] 40.0-44.9, adult; M54.9 Dorsalgia, unspecified; M79.609 Pain in unspecified limb; R94.31 Abnormal electrocardiogram [ECG] [EKG]; F32.A Depression, unspecified
CPT/HCPCS: 99214

== ENCOUNTER → 2022-12-16 14:33 | Outpatient (BNVA) | payer BC, SELFPAY | PROVIDERS: PCP Nurse Practitioner Family; Visit Provider Surgery ==

== ENCOUNTER 2022-12-18 08:25 | Outpatient (REF) | payer BC, SELFPAY ==
--- NOTE | ~2022-12-18 | US_ITS ---
EXAMINATION: US COMPLETE ABDOMEN WITH LIVER ELASTOGRAPHY CLINICAL INFORMATION: Morbid obesity. COMPARISON: None available. TECHNIQUE: Real-time imaging of the abdominal viscera. Noninvasive ultrasound liver fibrosis assessment is performed using Juliano ElastPQ point quantification shear wave elastography (2D-SWE) with a C5-2 MHz transducer. Multiple elastography samples are obtained. FINDINGS: PANCREAS: Limited. The visualized pancreatic head and body are normal in appearance. The remainder of the pancreas is obscured from visualization by the overlying bowel gas. ABDOMINAL AORTA: The proximal, middle, and distal aortic segments are normal in caliber. INFERIOR VENA CAVA: Visualized portions are normal. LIVER: The liver demonstrates normal size, contour and slightly increased echogenicity. No focal lesion or intrahepatic biliary duct dilatation. The right lobe measures 13.4 cm in length. The left lobe measures 7.8 cm in length. Portal flow is towards the liver (hepatopetal). Shear wave liver elastography median stiffness is 2.21 m/s (reference: normal median stiffness is 1.3 m/s or less). IQR/median stiffness to assess sampling precision is 0.10 (reference: good quality data set is IQR/median stiffness of 0.15 or less). GALLBLADDER: Normal. The gallbladder is physiologically distended without evidence of stones, sludge, polyps, wall thickening or pericholecystic fluid. COMMON BILE DUCT: Normal in caliber measuring 0.3 cm in diameter. RIGHT KIDNEY: Normal. No hydronephrosis. No renal calculi or focal parenchymal lesions. The kidney measures 9.8 cm in maximum dimension. LEFT KIDNEY: Normal. No hydronephrosis. No renal calculi or focal parenchymal lesions. The kidney measures 9.7 cm in maximum dimension. SPLEEN: Normal. The spleen measures 7.8 cm in maximum dimension. FREE FLUID: None. US/US abdomen comp w elastography IMPRESSION: 1. There is slight increase in hepatic echotexture, consistent with fatty infiltration or hepatocellular disease. Please correlate clinically. No focal hepatic mass or intrahepatic biliary dilatation is seen. 2. Liver elastography: Measuremensts are consistent with compensated advanced chronic liver disease. 3. Technically limited ultrasound examination of the pancreatic tail. REFERENCE: Society of Radiologists in Ultrasound Liver Stiffness Thresholds (2020): LIVER STIFFNESS THRESHOLDS: *Liver Stiffness equal or less than 1.3 m/s: High probability of being normal. *Liver Stiffness less than 1.7 m/s: In the absence of other known clinical signs, rules out compensated advanced chronic liver disease. *Liver Stiffness 1.7-2.1 m/s: Suggestive of compensated advanced chronic liver disease but need further test for confirmation. *Liver Stiffness over 2.1 m/s: Rules in compensated advanced chronic liver disease. *Liver Stiffness over 2.4 m/s: Suggestive of clinically significant portal hypertension. QUALITY OF DATA SET: *IQR/Median value equal or less than 0.15 implies a quality data set. *IQR/Median value over 0.15 implies a poor quality data set. SIGNIFICANT CHANGE FROM PRIOR EXAM: Significant change if liver stiffness measurement is 10% or greater from prior exam. OTHER CONSIDERATIONS: The stage of liver fibrosis may be overestimated in the setting of acute hepatitis, liver inflammation, elevated liver function tests, hepatic vascular congestion, obstructive cholestasis, non-fasting state, and infiltrative diseases such as amyloidosis and lymphoma. In some patients with NAFLD, the liver stiffness thresholds for compensated advanced chronic liver disease may be lower. In causes other than viral hepatitis and NAFLD, liver stiffness thresholds are not well established.
--- NOTE | ~2022-12-18 | FL_ITS ---
EXAMINATION: XR FLUOROSCOPY UPPER GI WITH AIR CLINICAL INFORMATION: Obesity COMPARISON: None available. TECHNIQUE: Upper GI was performed using thin and thick barium and effervescent granules FINDINGS: Esophageal motility is normal. No significant hernia or reflux. The stomach and duodenum are normal. No fold thickening, mass, ulcer or stricture. FLUOROSCOPY TIME: 0.21 minutes DOSE AREA PRODUCT: 389 uGy-m2 (microgray-meter squared) total dose 11 mgy. 19 saved fluoroscopic images FL/FL upper GI w air IMPRESSION: Unremarkable examination.
== END 2022-12-18 08:26 | disposition home or self-care (01) ==
LOC: HO.US 08:25
PROVIDERS: PCP Nurse Practitioner Family; Visit Provider Physician Assistant Surgical
DX: E66.01 Morbid (severe) obesity due to excess calories (principal)
CPT/HCPCS: 74246; 76705; 76981

== ENCOUNTER → 2022-12-18 08:26 | Outpatient (BNV) | payer BC, SELFPAY | PROVIDERS: PCP Nurse Practitioner Family; Visit Provider Radiology Diagnostic Radiology | DX: Z01.818 Encounter for other preprocedural examination (principal) | CPT/HCPCS: 74246 ==

== ENCOUNTER 2022-12-30 15:04 | Outpatient (AMB) | payer BC, SELFPAY ==
--- NOTE | 2022-12-30 15:16 | MHC.OFFVIS ---
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 It has been perhaps 10 years since she had an exam and she has had a Mirena for at least that long she was in an unhealthy relationship and has been out of that for the last year and half and is in a new relationship now. 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 She is working on weight loss and has already lost significant amount await and tomorrow she has an appointment to schedule her surgery. She wants a more reliable method of control as this Mirena has clearly for now she has been using condoms. She knows that this Mirena has long since stopped functioning her menses returned in full about a year and a half ago [facility] Surgical History Hx of hand surgery Family History (Updated 12/30/22 @ 15:22 by SHERLEY Yousif) Mother No problems noted. Father Diabetes Brother No problems noted. Son No problems noted. Daughter Asthma Maternal Grandmother Breast cancer Paternal Uncle Colon cancer Paternal Grandfather Colon cancer Social History Housing: House Alcohol intake: current Alcohol intake frequency: holidays/special occasions only Patient Tobacco Use Status: Former Tobacco user Quit Date: 20 years ago e-Cigarette/Vaping Use: Never Used Second Hand Smoke Exposure: No service: No Current occupational status: employed Current occupation: [employer] Current occupational exposures/hazards: Yes Cognitive needs: No Hearing needs: No Vision needs: No Female Reproductive History Menstrual Age of Menarche: 7 Duration of menses: 6-7 days Date of last menstrual period: 12/11/22 control method: progestin IUCD Total pregnancies: 2 Full term: 2 Number of Living Children: 2 Date of last pap smear: 06/22/08 (negative) History of abnormal pap smear: Yes (2003 RADHA 2-3) Physical Exam Vital Signs: Last Vital Signs BP 134/78 12/30/22 15:17 BMI result Body Mass Index 44.1 Const General: healthy appearing, comfortable, no acute distress, well developed and alert Nutritional Appearance: average body habitus Orientation/consciousness: patient oriented x3 Limitations: no limitations HEENT Head: Yes normocephalic Neck Neck: Yes normal visual inspection Thyroid: Thyroid normal Chest Chest palpation & inspection: normal inspection of the chest Breast/axilla inspection: normal inspection of the breasts and normal inspection of the axillae Breast/axilla palpation: normal palpation of the breasts and normal palpation of the axillae Resp Effort & Inspection: normal respiratory effort GI Inspection: Yes normal to inspection, No Abdominal wall edema and No distended Palpation (GI): Soft to palpation and nontender Other: Adipose noted vagina pink, and moist cervix multiparous. Mirena strings not immediately visible but were able to be teased out with 2nd Cytobrush. Pap smear in testing for STIs done. General: Yes bladder normal to palpation External Female Exam: normal external appearance and normal appearance of the urethra Speculum Exam - Vagina: normal appearance of the vagina, normal palpation and normal vaginal discharge Speculum Exam - Cervix: normal appearance of the cervix, normal palpation and nontender Bimanual exam- vagina & uterus: normal bimanual exam, normal palpation, uterine size normal, bladder normal to palpation, consistency normal, normal palpation, uterine mobility normal, uterine shape normal, No Cervical tenderness present, non-tender and no cervical motion tenderness Bimanual Exam- Adnexa, other: normal adnexae, no masses, normal and No adnexal tenderness Neuro General: patient oriented x3 Assessment & Plan Assessment & Plan (1) Morbid obesity: Comment: Actively trying to lose weight is in the bariatric program has lost some weight will be scheduling surgery soon. Code(s): E66.01 - Morbid (severe) obesity due to excess calories (2) Screening for cervical cancer: Code(s): Z12.4 - Encounter for screening for malignant neoplasm of cervix (3) control counseling: Code(s): Z30.09 - Encounter for other general counseling and advice on contraception (4) Presence of 52 mg levonorgestrel-releasing intrauterine device (IUD): Comment: Has long since . Patient would like replacement will replace with next menses on 1 of the heaviest days, 2 through four Code(s): Z97.5 - Presence of (intrauterine) contraceptive device (5) Stress incontinence: Code(s): N39.3 - Stress incontinence (female) (male) Plan -----Discussed in this visit the following: healthy balanced diet, regular and consistent exercise, getting recommended health screens, doing the best she can for her particular health concerns, kegel exercises, pap smear screening and followup recommendations, mammography screening and SBE, normal changes in cycles in her life stage--- .Discussed in general terms the challenges of obesity and challenges for her health and efforts she is engaging in to manage this including dietary changes water intake attention to sleep inclusion of a regular exercise have it and dealing with the may need stressors of life that can contribute to obesity in general. Encouraged her to continue in all have her best efforts ---I Had the patient and demonstrate a Kegel contraction at the end of the exam, ordered in order to explain a Kegel exercise, and instructed the patient on doing the same exercises several times a day with increasing strength each time. One useful to is to imagine pursestring around the vagina and pulling it tight and upwards as if raising the vagina, or imagining that her tight muscles are on the 1st floor and she is trying to pull them up to the 5th floor and then slowly letting them go down. To try to do these several times a day but focus on the quality and the strength of the exercises more than the quantity, and tried isolate just those muscles and not involve other body parts. I did tell her that she could also have a referral to either Urology or physical therapy but she does not have time for extra ointments at this point of her life and she is focused on the weight loss issue with bariatric program and she has taken on a 2nd job so I gave her a pamphlet on doing Kegel's and asked her to try to squeeze them in throughout the day and also to really work on voiding when she needs to void so she does not hold the urine and over fill her bladder. Since the IUD strings were visible to be seen well after teasing them out I recommend that she call the minute she starts her. So that we can try to get her into a cancellation slot for a Mirena exchange.. in the meantime she is using condoms Orders: Orders CT NG by PCR Today Z20.2 - Contact with and (suspected) exposure to infections with a predominantly sexual mode of transmission Bacterial Vaginosis Panel Today Z20.2 - Contact with and (suspected) exposure to infections with a predominantly sexual mode of transmission Pap Smear Today Z12.4 - Encounter for screening for malignant neoplasm of cervix Coding Level of Care Code New Pt Prev Care 18-39yr([id number] Diagnoses Morbid obesity E66.01 Screening for cervical cancer Z12.4 control counseling Z30.09 Presence of 52 mg levonorgestrel-releasing intrauterine device (IUD) Z97.5 Stress incontinence N39.3
[2022-12-30 15:17] VITALS: BP 134/78; BMI 44.1
== END 2022-12-30 16:02 | disposition home or self-care (01) ==
LOC: HO.HWS 15:04
PROVIDERS: PCP Nurse Practitioner Family; Visit Provider Advanced Practice Midwife
DX: Z01.419 Encounter for gynecological examination (general) (routine) without abnormal findings (principal); E66.01 Morbid (severe) obesity due to excess calories; Z30.09 Encounter for other general counseling and advice on contraception; Z97.5 Presence of (intrauterine) contraceptive device; N39.3 Stress incontinence (female) (male)
CPT/HCPCS: 99385

== ENCOUNTER 2022-12-30 15:04 | Outpatient (REF) | payer BC, SELFPAY ==
[2022-12-31 06:10] LABS: CT PCR NOT DETECTED (Not Detect.); NG PCR NOT DETECTED (Not Detect.)
[2022-12-31 12:54] LABS: BV Int Neg Control Negative (Negative); BV Int Pos Control Positive (Positive)
[2023-01-02 07:49] LABS: HPV mRNA E6/E7 rflx Not Detected (Not Detected)
== END 2022-12-30 15:05 | disposition home or self-care (01) ==
LOC: HO.LNP 15:04
PROVIDERS: PCP Nurse Practitioner Family; Visit Provider Advanced Practice Midwife
DX: Z12.4 Encounter for screening for malignant neoplasm of cervix (principal); Z11.51 Encounter for screening for human papillomavirus (HPV); Z20.2 Contact with and (suspected) exposure to infections with a predominantly sexual mode of transmission; E66.01 Morbid (severe) obesity due to excess calories; Z97.5 Presence of (intrauterine) contraceptive device; N39.3 Stress incontinence (female) (male)
CPT/HCPCS: 0353U; 87480; 87510; 87624; 87660; 88142

== ENCOUNTER 2022-12-31 15:38 | Outpatient (AMB) | payer BC, SELFPAY ==
--- NOTE | 2022-12-31 15:40 | MHC.OFFVISWM ---
Intake VS Expanded 12/31/22 15:46 BP 136/66 Blood Pressure Location Rt brachial Blood Pressure Position Sitting Pulse 88 Pulse Source Pulse Oximeter Temp 97.7 F Temperature Source Tympanic Pulse Oximetry 94 Oxygen Delivery Method Room Air Height 5 ft Weight 221 lb 6.4 oz BMI 43.2 Body Fat % 43.8 Body Fat Mass 97.0 Fat Free Mass 124.4 Visceral Fat Rating 13.0 Body Water % 40.1 Body Water Mass 88.8 Muscle Mass/Score 118.2 Basal Metabolic Rate/Score 1,749 Intake Visit Reasons: (OV) F/U SWL Motor Boss Required: No Shoe Lay Out Planner: Shoe Lay Out Planner offered & declined Allergies amoxicillin Adverse Reaction (Mild, Verified 12/31/22 15:43) Abdominal Pain Penicillins Adverse Reaction (Mild, Verified 12/31/22 15:43) Abdominal Pain Medication List - Last Reconciled 12/31/22 by Davin Hills MD, FACS, FASMBS albuterol sulfate 90 mcg/actuation 2 puffs inhalation Q6H PRN levonorgestrel (Mirena) intrauterine metronidazole 500 mg PO Q12H HPI HPI Comments History of Present Illness Details The patient is a pleasant 37 year old female who returns to the clinic for pre-operative surgical weight loss management. They were last seen in the office on 10/27/22, recorded weight at that time was 234.4 pounds, with a BMI of 45.8. Today's weight is 221.4 pounds and BMI is 43.2. There has been a weight loss of 26.2 pounds since initiating the surgical weight loss program on 09/22/22 with a total body weight loss of over 10%. We discussed the fact that the patient is up a few lb from her last visit and she notes that she went off her meal plan while on vacation. She is currently still not participating in regular exercise and we discussed the risk of weight regain and that she may be not satisfied with postop weight loss if she is not exercising. Pre op work up completed as follows: SWL classes:? 09/29 complete BH appts: cleared-10/21/22 ? ? RD appts: cleared-11/12/22 Labs: 09/29/22-ok H. pylori: 09/22/22-neg CXR: 09/29/22-nad EK09/29/22-cannot r/o ant infarct - nuc stress test ordered 10/02/22, scheduled 11/02/22-normal ABD U/S: 12/18/22 NAFLD, + fibrosis, shear 2.21 UGI: 12/18/22 No HH The patient reports things are going well. She has been parking farther away and taking stairs now, but has no current exercise plan in place and is not trending calorie expenditure. Current meal plan includes: 3 Orgain shakes (Target, [employer], [facility], [employer])First shake, (2 scoops in 8 oz low fat unsweetened almond milk or water, may add ice if you wish) at 7am-9am, Second shake (1 scoop in 8 oz unsweetened almond milk) at? 11am-1pm 1 protein bar (Fulfil bars at Target, [facility], or [employer]) at 3pm-5pm.Dinner at 6pm (8 forks of protein and 8 forks of salad/vegetables). -Told [address]-ok Drinking 64-80 oz of water Current exercise plan includes: outdoor biking 10-20 miles on weekend. approx 525-650 calories. Home videos during the week. gym, 2 x per week [employer], 20 min weights, 40 min cardio, 250 calories PFSH Surgical History Hx of hand surgery Family History Mother No problems noted. Father Diabetes Brother No problems noted. Son No problems noted. Daughter Asthma Maternal Grandmother Breast cancer Paternal Uncle Colon cancer Paternal Grandfather Colon cancer Social History Housing: House Alcohol intake: current Alcohol intake frequency: holidays/special occasions only Patient Tobacco Use Status: Former Tobacco user Quit Date: 20 years ago e-Cigarette/Vaping Use: Never Used Second Hand Smoke Exposure: No service: No Current occupational status: employed Current occupation: [employer] Current occupational exposures/hazards: Yes Cognitive needs: No Hearing needs: No Vision needs: No Female Reproductive History Menstrual Age of Menarche: 7 Review of Systems Const All systems reviewed & are unremarkable except as noted in HPI and below Reports as per HPI Physical Exam On exam, the patient is nontoxic and is in good spirits Her sclera anicteric She is in no respiratory distress Abdomen is obese and soft with no tenderness Results Reviewed Results Reviewed: 09/29/22 labs Hb 14.5 N/N Fe WNL; Plts 293K, wbc 5.5 BUN 14, Cr 0.86 HbA1C 5.0 LFTs WNL CRP 0.32, Insulin 9, MVI WNL Lipids WNL Imaging CXR NAD Cardiolite stress test Nml; EF 73% Abd U/S elastography c/w NAFLD & hepatic fibrosis; shear 2.21 UGI No HH Assessment & Plan Assessment & Plan (1) Morbid obesity: Comment: Actively trying to lose weight is in the bariatric program has lost some weight will be scheduling surgery soon. Code(s): E66.01 - Morbid (severe) obesity due to excess calories (2) Depression, unspecified: Code(s): F32.A - Depression, unspecified (3) Stress incontinence: Code(s): N39.3 - Stress incontinence (female) (male) (4) Abnormal EKG: Code(s): R94.31 - Abnormal electrocardiogram [ECG] [EKG] Plan Overall, the patient had been doing well until her slight weight gain which occurred on vacation. Patient is accompanied by her mother and a family friend in gave permission to speak with them. The mother disclose that she had a gastric bypass and had some questions that seemed to be satisfactorily answered. We discussed her liver fibrosis in the increased risk for cirrhosis; we also reviewed the importance of postoperative diet/meal plan and increased activity/exercise including calorie tracking since this correlates with the degree of weight loss and postoperative success. The patient notes she is planning to join a gym but has not. The the options of continued medical weight loss, surgical options of sleeve gastrectomy and gastric bypass were discussed and apparently understood. Patient's questions seemed to be satisfactorily answered and she would like to proceed with a laparoscopic sleeve gastrectomy, possible hiatal hernia repair, intraoperative endoscopy and possible ventral hernia repair. I reviewed the inherent risks of this procedure which include, but are not limited to: Bleeding that could require another operation or blood transfusion; the inherent risks of transfusion reaction infectious disease from blood transfusions; the risk of staple line leaks that could cause sepsis, multi-system organ failure and ; the risk of mesenteric or deep vein thrombosis of the lower extremities that could cause a fatal pulmonary embolism was reviewed; the risk of GERD that could require conversion to gastric bypass was discussed; the risk of recurrent hiatal hernia, especially in the setting of weight regain was reviewed. The risk of weight regain if maladaptive eating and sedentary behavior continue was discussed. The importance of proper diet and increased activity to augment surgical weight loss and the fact that no operation would result in weight loss of poor dietary decisions and sedentary behavior are resumed were discussed at length and apparently understood. The patient had the option of having a screwmaker automatic present and declined this option. Patient is currently using or gain protein powder and requested information regarding the liver shrinking diet which was provided. I will reach out with a more definitive or gain protein powder liver shrinking diet plan and she will be submitted for insurance and need to follow-up 45 minute appointment regarding consents and perioperative discussion. Coding Level of Care Code Est Pt Level 4 (04069) Diagnoses Morbid obesity E66.01 Depression, unspecified F32.A Stress incontinence N39.3 Abnormal EKG R94.31
[2022-12-31 15:46] VITALS: BP 136/66; PULSE 88; TEMP 36.5; O2SAT 94; BMI 43.2
== END 2022-12-31 16:32 | disposition home or self-care (01) ==
PROVIDERS: PCP Nurse Practitioner Family; Visit Provider Surgery
DX: E66.01 Morbid (severe) obesity due to excess calories (principal); Z68.41 Body mass index [BMI] 40.0-44.9, adult; N39.3 Stress incontinence (female) (male); R94.31 Abnormal electrocardiogram [ECG] [EKG]
CPT/HCPCS: 99214

== ENCOUNTER → 2022-12-31 15:38 | Outpatient (BNVA) | payer BC, SELFPAY | PROVIDERS: PCP Nurse Practitioner Family; Visit Provider Surgery ==

== ENCOUNTER 2023-01-06 15:01 | Outpatient (AMB) | payer BC, SELFPAY ==
--- NOTE | 2023-02-10 15:29 | MHC.WMTHER ---
Intake Intake Visit Reasons: (OV) BH F/U Allergies amoxicillin Adverse Reaction (Mild, Verified 02/02/23 13:07) Abdominal Pain Penicillins Adverse Reaction (Mild, Verified 02/02/23 13:07) Abdominal Pain PFSH Medical History (Updated 02/03/23 @ 07:14 by Christine Tolbert RN) Fatty liver disease, nonalcoholic Depression COVID-19 Asthma Surgical History Hx of hand surgery Family History Mother No problems noted. Father Diabetes Brother No problems noted. Son No problems noted. Daughter Asthma Maternal Grandmother Breast cancer Paternal Uncle Colon cancer Paternal Grandfather Colon cancer Social History Housing: House Are you a primary pet care worker to a significant other at home: No Do you presently have visiting nurse or other home services: No Alcohol intake: current Alcohol intake frequency: holidays/special occasions only Patient Tobacco Use Status: Former Tobacco user Quit Date: 20 years ago e-Cigarette/Vaping Use: Never Used Second Hand Smoke Exposure: No service: No Current occupational status: employed Current occupation: [employer] Current occupational exposures/hazards: Yes Cognitive needs: No Hearing needs: No Vision needs: No Female Reproductive History Menstrual Age of Menarche: 7 Behavioral Health Assessment Weight Management Therapy Therapy Notes Details Talked about personal and family struggles. Her rel. with her , her children, how she is now finally caring for herself. Pt is looking to have weight loss surgery to help improve her health and quality of life. She is currently not in therapy and was on a waitlist since her separation from her ex last year but was denied due to her insurance. She reported being in therapy in the past when she was in college and marriage counseling with her . No history of problems with drugs or alcohol and she has not taken any medication for depression. Patient reported some depression Presenting Concerns Referral Source provider Reason for referral weight loss surgery evaluation Precipitating Event obesity Living Situation Current Living Situation Relative's/Guardian's Jerzy At risk of losing current housing? No Satisfied with current living situation? Yes Comments Patient lives with her mother and her mother's . Food/Weight/Diet Expectations of change weight loss and maintenance History/Relationship with food She reported eating generally healthy, has a sweet tooth, also would eat popcorn as a snack often, for years prior would drink soda. Would drink coffee with sugar and almond milk. No late night eating and some boredom eating and grazing. History/Relationship with weight Pt stated that she has struggled with her weight she had children 18 years ago and was in a bad rel. for many years. She reported being slightly overweight as a young adult and very active as a teenager. History/Relationship with dieting various diets including Herbalife Binge Eating Do you frequently eat large amounts of food in short periods of time, not feeling physically hungry? No Do you feel out of control when you eat a large amount of food in a short period of time? No Do you eat large amounts of food rapidly and typically alone? No Night Eating Do you wake up at least once during the night to eat? No If you wake up in the night, do you find that it is necessary to eat something in order to fall back asleep? No Do you have little or no appetite in the morning and feel very hungry in the evening, often overeating between dinner and when you go to bed? No Social History Family history and relationship Patient has two children ages 17, and 18 who live with their father as of this past year. She stated that she is trying to save money to get from her ex of 18 years. Her children have limited contact with her at this time. Parental/Familial probe operator obligations none Developmental history and status no issues Social support mom, father, step mother, grandparents, friends, boyfriend Cultural/Ethnic information Legal Involvement and History Current or historical involvement with the legal system? none reported Education Highest grade completed college Preferred learning style Auditory, Verbal, Written, Learn by doing and Visual Currently enrolled in educational program? No Interested in further educational program? 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 No Meaningful activities walking Financial Situation Describe current financial situation Often struggles with finance Financial assistance? None Service Service? No Mental Health and Addiction Treatment Current/Past substance abuse? No Current/Past addictive behavior concerns? No Medical and Physical Health Summary Physical exam in the last year? Yes Pain Screening Current pain? No Pain in the last few months? No Medications Is the patient compliant with medications? Yes Does the patient have Walker Guardian in place? Not applicable Does the patient use complimentary health approaches? No Trauma/Abuse History History of trauma? Yes Assessment & Plan Assessment & Plan (1) Depression, unspecified: Code(s): F32.A - Depression, unspecified (2) Morbid obesity: Comment: Actively trying to lose weight is in the bariatric program has lost some weight will be scheduling surgery soon. Code(s): E66.01 - Morbid (severe) obesity due to excess calories Plan Patient reported some family stressors over the years that have caused her emotional distress, not other serious barriers reported. She will be seen again for therapeutic support and is cleared for surgery when ready. Coding Level of Care Code Psytx 45 mins (65903) Diagnoses Depression, unspecified F32.A Morbid obesity E66.01 Time Spent (min) 40
== END 2023-02-10 15:28 | disposition home or self-care (01) ==
PROVIDERS: PCP Nurse Practitioner Family; Visit Provider Counselor Mental Health
DX: F33.1 Major depressive disorder, recurrent, moderate (principal); E66.01 Morbid (severe) obesity due to excess calories; Z68.41 Body mass index [BMI] 40.0-44.9, adult
CPT/HCPCS: 90834

== ENCOUNTER → 2023-01-06 15:01 | Outpatient (BNVA) | payer BC, SELFPAY | PROVIDERS: PCP Nurse Practitioner Family; Visit Provider Counselor Mental Health ==

== ENCOUNTER 2023-02-03 08:33 | Outpatient (AMB) | payer BC, SELFPAY ==
[2023-02-02 13:06] VITALS: BMI 41.0
--- NOTE | 2023-02-02 13:06 | A.OFFVIS_ITS ---
Intake VS Expanded 02/02/23 13:06 Height 5 ft Weight 210 lb BMI 41.0 Intake Visit Reasons: TV Pre Op LSG 02/16/23 Allergies amoxicillin Adverse Reaction (Mild, Verified 02/02/23 13:07) Abdominal Pain Penicillins Adverse Reaction (Mild, Verified 02/02/23 13:07) Abdominal Pain Medication List - Last Reconciled 02/02/23 by Bernabe Lozano MD albuterol sulfate 90 mcg/actuation 2 puffs inhalation Q6H PRN apple cider vinegar 300 mg PO DAILY levonorgestrel (Mirena) 1 device intrauterine ondansetron 4 mg PO Q12H pantoprazole 40 mg PO DAILY polyethylene glycol 3350 (Miralax) 17 grams PO DAILY sucralfate 10 mL PO BID HPI TV Pre Op LSG 02/16/23 HPI Details Start time: 8.45am, End time: 9.15am ?I spent 25 minutes speaking with the patient on the phone plus an additional 5 minutes reviewing and updating records for a total of 30 minutes HPI Comments History of Present Illness Details Overall weight loss: 35.4lbs, or 14.39% TBWL Current meal plan includes: 3 Orgain shakes ([employer], [employer], [facility], [employer]on, [employer]) First shake, (2 scoops in 8 oz low fat unsweetened almond milk or water, may add ice if you wish) at 7am-9am, Second shake (1 scoop in 8 oz unsweetened almond milk) at? 11am-1pm 1 protein bar (Fulfil bars at Target, [facility], or [employer]) at 3pm-5pm.Dinner at 6pm (8 forks of protein and 8 forks of salad/vegetables). -Told [address]-ok PFSH Medical History (Updated 02/03/23 @ 07:14 by Christine Tolebrt RN) Fatty liver disease, nonalcoholic Depression COVID-19 Asthma Surgical History Hx of hand surgery Family History Mother No problems noted. Father Diabetes Brother No problems noted. Son No problems noted. Daughter Asthma Maternal Grandmother Breast cancer Paternal Uncle Colon cancer Paternal Grandfather Colon cancer Social History (Reviewed 12/31/22 @ 15:50 by Ayah Ortega [facility]) Housing: House Are you a primary care specialist to a significant other at home: No Do you presently have visiting nurse or other home services: No Alcohol intake: current Alcohol intake frequency: holidays/special occasions only Patient Tobacco Use Status: Former Tobacco user Quit Date: 20 years ago e-Cigarette/Vaping Use: Never Used Second Hand Smoke Exposure: No service: No Current occupational status: employed Current occupation: [employer] Current occupational exposures/hazards: Yes Cognitive needs: No Hearing needs: No Vision needs: No Female Reproductive History Menstrual Age of Menarche: 7 Physical Exam Vital Signs: BMI result Body Mass Index 43.2 Assessment & Plan Assessment & Plan (1) Morbid obesity: Comment: Actively trying to lose weight is in the bariatric program has lost some weight will be scheduling surgery soon. Code(s): E66.01 - Morbid (severe) obesity due to excess calories Plan: 1. Plan for lap sleeve gastrectomy including upper GI endoscopy. All tests has been completed and reviewed and the patient is cleared for the surgery. ?If diaphragmatic or ventral hernias are present at time of surgery, these will be repaired laparoscopically as well. Risks and complications were discussed in detail including possible conversion to an open procedure, anastomotic leak, bleeding requiring transfusion, small bowel obstruction, , DVT and pulmonary embolism, cardiac, or pulmonary complications, as snf complications such as anastomotic ulcer, insufficient weight loss and vitamin deficiencies. I emphasized the importance of close follow-up, adherence to instructions and good communication. So far she has proven to be an excellent communicator and very compliant with all our directions accomplishing a great weight loss. I believe that she is an excellent candidate and she is ready. 2. Preop prescriptions were provided and explained the purpose of each one. Need to be purchased preop. Start Pantoprazole now as you get it from the pharmacy, 1 pill per day. Sucralfate and Zofran are for after surgery as needed. 3. Bowel prep: please do 7 packets ?of Miralax mixing each one with a an 8oz glass of water, crystal light, gatorade zero, or propel ?on 02/14/23 and the same amount on 02/15/23. Continue the protein shakes during? the bowel prep. 4. Needs to purchase 1oz medicine cups . 5. Needs to purchase Children's liquid Tylenol for postop pain control. 6. She needs to stop the apple cider tomorrow 02/03/23. Avoid aspirin, motrin, Advil, Aleve, Ibuprofen, Naproxyn. Tylenol is OK. 7. She needs to purchase the Celebrate 4:1 protein shakes from the hospital's gift shop. 8. Will do basic preop blood work-up any day between Wednesday02/08/23 and Wednesday02/12/23 fasting for 12 hours and is scheduled to see the Anesthesiologist prior to the day of surgery. 9. Importance of adherence to postop folllow-up and recommendations was underscored and she understands that. 10. Stop food and bars as of Wednesday02/07/23 and continue with 2 ORGAIN protein shakes (ONE scoop EACH in 8oz almond milk) at 7am-9am and 10am-12pm and THREE more ORGAIN protein shakes with TWO scoops EACH in 8oz of almond milk at 1pm- 3pm, 4pm-6pm and 7pm-9pm. 11. No soups, broths or V8 12. The patient's?medical?history has been reviewed and they are considered low risk for post op DVT and therefore DVT prophylaxis is not considered necessary. Travel after surgery was reviewed. The patient has not disclosed any travel plans during the first 30 days after surgery and they have been advised that within the first 30 days after surgery any bus, plane, train or car travel over 2 hours in duration is contraindicated due to the possibility of developing blood clots from immobility. Any travel, needs to include periods of ambulation of 10 minutes in duration every 2 hours.? Patient was instructed to discuss any plans for travel during this period with their bariatric surgeon.? 13. Please take at the day of surgery the following medications: NONE 14. Stop any control pills and don't use them for one month after surgery. Youhave the Mirena device and this is OK to keep 15. Absolutely no smoking or vaping, or marijuana until the surgery and for at least the first 4 weeks. Only nicotine patches are allowed. 16. Send me weight measurements from your body composition scale mihaela and then weekly and also on Wednesday02/16/23 and then on the day of surgery before you go to the hospital. 17. Avoid any steroids by mouth for any reason. Let me know if someone prescribes them to you Orders: Orders Prothrombin Time INR 02/02/23 E66.01 - Morbid (severe) obesity due to excess calories Type and Screen 02/02/23 E66. - Morbid (severe) obesity due to excess calories Hemoglobin A1c 02/02/23 E66. - Morbid (severe) obesity due to excess calories Comprehensive Met. Panel 02/02/23 E66. - Morbid (severe) obesity due to excess calories TSH reflex Free T4 02/02/23 E6. - Morbid (severe) obesity due to excess calories Partial Thromboplastin Time 02/02/23 E66. - Morbid (severe) obesity due to excess calories C Reactive Protein 02/02/23 E66. - Morbid (severe) obesity due to excess calories Lipid Panel 02/02/23 E66. - Morbid (severe) obesity due to excess calories Complete Blood Count Auto Diff 02/02/23 E66. - Morbid (severe) obesity due to excess calories Insulin 02/02/23 E66. - Morbid (severe) obesity due to excess calories Medications: New polyethylene glycol 3350 (Miralax) Mix each packet with 8oz of water, Crystal light, or Gatorade zero, or Propel and do 7 packets on 02/14/23 and another 7 packets on 02/15/23 17 grams PO DAILY 14 ea 0RF Z01.818 - Encounter for other preprocedural examination pantoprazole 40 mg PO DAILY 30 tabs 2RF K21.9 - Gastro-esophageal reflux disease without esophagitis sucralfate 10 mL PO BID 400 mL 2RF K21.9 - Gastro-esophageal reflux disease without esophagitis ondansetron Only take one every 12 hours as needed if you have nausea 4 mg PO Q12H 20 tabs 0RF nausea and vomiting R11.0 - Nausea Telehealth Telehealth Location of provider rendering services: practice address Location of patient: address on file Patient Identification confirmed using: Name, : Yes Telehealth method: voice only Patient verbally consented to treatment: Yes Patient verbally consented to billing insurance company: Yes Patient informed of any privacy concerns related to visit: Yes Minutes spent on Phone/Video with Pt.: 30 Coding Level of Care Code Tele Est Pt Level 4 (21999) Diagnoses Morbid obesity E66.01 Time Spent (min) 30
== END 2023-02-03 09:15 | disposition home or self-care (01) ==
LOC: HO.HBS 08:33
PROVIDERS: PCP Nurse Practitioner Family; Visit Provider Surgery
DX: E66.01 Morbid (severe) obesity due to excess calories (principal); Z68.41 Body mass index [BMI] 40.0-44.9, adult
CPT/HCPCS: 99024

== ENCOUNTER → 2023-02-03 08:33 | Outpatient (BNVA) | payer BC, SELFPAY | PROVIDERS: PCP Nurse Practitioner Family; Visit Provider Surgery | DX: E66.01 Morbid (severe) obesity due to excess calories (principal); K21.9 Gastro-esophageal reflux disease without esophagitis; R11.0 Nausea; Z01.818 Encounter for other preprocedural examination ==

== ENCOUNTER 2023-02-10 15:15 | Outpatient (AMB) | payer BC, SELFPAY ==
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
== END 2023-02-10 16:34 | disposition home or self-care (01) ==
PROVIDERS: PCP Nurse Practitioner Family; Visit Provider Counselor Mental Health
DX: F33.2 Major depressive disorder, recurrent severe without psychotic features (principal); E66.01 Morbid (severe) obesity due to excess calories; Z68.41 Body mass index [BMI] 40.0-44.9, adult
CPT/HCPCS: 90834

== ENCOUNTER → 2023-02-10 15:15 | Outpatient (BNVA) | payer BC, SELFPAY | PROVIDERS: PCP Nurse Practitioner Family; Visit Provider Counselor Mental Health ==

== ENCOUNTER 2023-02-16 06:03 | Inpatient (IN) | payer BC, SELFPAY ==
[2023-01-25 07:02] VITALS: BMI 42.0
[2023-02-11 07:09] LABS: MANUAL DIFF FLAG NO
[2023-02-11 07:20] LABS: Basophils Absolute Auto 0.1 X10*3/uL (0.0-0.2); Basophils Percent Auto 0.9 % (0-2); Eosinophils Absolute Auto 0.2 X10*3/uL (0.0-0.4); Eosinophils Percent Auto 3.8 % (0-4); Hematocrit 41.9 % (37.0-47.0); Hemoglobin 14.4 g/dl (12.0-16.0); Imm Gran Abs Auto 0.02 X10*3/uL (0.00-0.03); Imm Gran Pct Auto 0.3 % (0.0-0.4); Lymphocytes Absolute Auto 1.7 X10*3/uL (1.2-4.9); Lymphocytes Percent Auto 29.2 % (20-40); Mean Corpuscular HGB Conc 34.4 g/dl (31.0-35.0); Mean Corpuscular Volume 81.4 fL (80.0-98.0); Mean Platelet Volume 10.3 fL (9.4-12.3); Monocytes Absolute Auto 0.5 X10*3/uL (0.1-1.2); Monocytes Percent Auto 8.2 % (2-11); Neutrophils Absolute Auto 3.3 x10*3/uL (2.0-8.3); Neutrophils Percent Auto 57.6 % (45-73); Platelet Count 288 X10*3/uL (160-400); Red Blood Count 5.15 X10*6/uL (4.20-5.50); Red Cell Distribution Width 12.2 % (11.0-16.0); White Blood Count 5.8 X10*3/uL (4.8-10.8)
[2023-02-11 07:24] LABS: Prothrombin Time 12.3 SEC (11.1-13.3)
[2023-02-11 07:26] LABS: Partial Thromboplastin Time 30.4 SEC (26.0-36.4)
[2023-02-11 07:30] LABS: Estimated Average Glucose 97 mg/dL
[2023-02-11 07:44] LABS: Alanine Aminotransferase 16 U/L (0-31); Albumin Level 4.3 g/dL (3.5-5.0); Alkaline Phosphatase 55 U/L (39-117); Anion Gap 12 (12-20); Aspartate Amino Transferase 18 U/L (5-31); Bilirubin Total 0.7 mg/dL (0.0-1.0); Blood Urea Nitrogen 12 mg/dL (9-16); C Reactive Protein 0.18 mg/dL (< or = 0.50); Calcium 9.5 mg/dL (8.4-10.2); Carbon Dioxide 28 mmol/L (22-29); Chloride 103 mmol/L (96-108); Cholesterol 126 mg/dL (<200); Creatinine Clr Calc Pharmacy 90.9; Estimated Glomerular Filt Rate > 60; Glucose Random 90 mg/dL (60-115); HDL Cholesterol 34 mg/dL (>40); LDL Cholesterol Calculated 74 mg/dL (<100); Potassium 3.6 mmol/L (3.3-5.1); Sodium 139 mmol/L (135-145); Total Protein 7.1 g/dL (6.5-8.0); Triglycerides 92 mg/dL (<150)
[2023-02-11 07:59] LABS: Insulin 8 uU/mL (2-29); TSH reflex Free T4 1.38 uIU/mL (0.32-4.0)
--- NOTE | 2023-02-12 23:30 | MHC.SHP ---
Pre-Procedural Eval Section A Date of Service: 02/12/23 The patient is an INPATIENT: Yes The History & Physical has been completed within 30 days and I have reviewed it.: Yes Section B Chief Complaint: Morbid (severe) obesity due to excess calories Relevant Family History (Specify if Yes): No Relevant Social History: None Present Medications: None Medical History: No relevant PMH History of Previous Operations: No relevant previous surgery Allergies: Allergies Allergy/AdvReac Type Severity Reaction Status Date / Time amoxicillin AdvReac Mild Abdominal Verified 02/02/23 13:07 Pain Penicillins AdvReac Mild Abdominal Verified 02/02/23 13:07 Pain Review of Systems Sugical H&P ROS: Negative: Constitution, Cardiovascular, Respiratory, Neurological, Psychiatric, Hem-Onc, Allergic/Immunologic, Gastrointestinal, Genitourinary, Musculoskeletal, Integumentary, Endocrine and Eyes/Ears/Nose/Throat Exam Surgical H&P Exam: Normal: HEENT, Normal: Heart, Normal: Lungs, Normal: Extremities, Normal: Abdomen, Normal: Skin and Normal: Neurological Plan Diagnosis/Plan: Unchanged I have reviewed the history and physical and performed a pertinent physical examination on my patient. No changes have occurred unless specified. Time Spent With Patient Time: Total time managing care of this patient today ____ minutes.
[2023-02-16] VITALS (11 sets, daily range): BP systolic 106–136; BP diastolic 56–78; PULSE 88–98; RESP 16–20; TEMP 35.7–36.5; O2SAT 97–100; BMI 40.7
[2023-02-16 06:27] LABS: UPreg QC Valid YES; Urine Pregnancy NEGATIVE (NEGATIVE)
[2023-02-16] MEDS: Lactated Ringers 1,000 ML 999 ML IV (06:37)
[2023-02-16] MEDS: Aprepitant 32 MG/4.4 ML VIAL IVPUSH (06:37)
--- NOTE | 2023-02-16 07:17 | PHA.MEDREC ---
Pharmacy Consult ? Medication Reconciliation Pharmacy has reviewed the medication reconciliation done by RN
--- NOTE | 2023-02-16 07:31 | HO.ANESPROP2 ---
HPI - Anesthesia Eval Consult details Narrative: for egd and gastrectomy sleeve PMFSH Active Problems Active Problems: All Active Problems (Updated 02/03/23 @ 07:14 by Christine Tolbert RN) Trichomoniasis (Acute) Stress incontinence (Acute) Presence of 52 mg levonorgestrel-releasing intrauterine device (IUD) (Acute) control counseling (Acute) Depression, unspecified (Acute) Abnormal EKG (Acute) Morbid obesity (Acute) Screening for cervical cancer (Acute) Physical exam (Acute) Pain of back and lower extremity (Acute) Past Medical History Medical History Fatty liver disease, nonalcoholic Depression COVID-19 Asthma Family History Family History Mother No problems noted. Father Diabetes Brother No problems noted. Son No problems noted. Daughter Asthma Maternal Grandmother Breast cancer Paternal Uncle Colon cancer Paternal Grandfather Colon cancer Family history of problems with anesthesia: No Surgical History Surgical History Hx of hand surgery History of Problems with Anesthesia: No Social History Social History Housing: House Are you a primary care analyst to a significant other at home: No Do you presently have visiting nurse or other home services: No Alcohol intake: current Alcohol intake frequency: holidays/special occasions only Patient Tobacco Use Status: Former Tobacco user Quit Date: 20 years ago e-Cigarette/Vaping Use: Never Used Second Hand Smoke Exposure: No Use of substances other than those prescribed or required for medical reasons: No Have you been hit, kicked, punched, or otherwise hurt by someone within the past year? If so, by whom?: No Advance Directives: No Advance Directives Information Provided: No Advance Directives on File: No Recently lost weight without trying: No Eating poorly because of decreased appetite: No Nutrition Risks: No Nutritional Risk Patient : No : No Poor oral hygiene: No service: No Current occupational status: employed Current occupation: [employer], [place] Current occupational exposures/hazards: Yes Cognitive needs: No Hearing needs: No Vision needs: No Meds Allergies Allergy/AdvReac Type Severity Reaction Status Date / Time amoxicillin AdvReac Mild Abdominal Verified 02/16/23 06:16 Pain Penicillins AdvReac Mild Abdominal Verified 02/16/23 06:16 Pain Active Medications: Current Medications Lactated Ringer's (Lr) 1,000 mls @ 999 mls/hr IV .Q1H1M JIMMY Stop: 02/16/23 08:15 Last Admin: 02/16/23 06:37 Dose: 999 mls/hr Home Medications Medication Instructions Recorded Confirmed Last Taken Type albuterol sulfate 90 mcg/actuation 2 puff inhalation Q6H PRN 08/12/22 02/02/23 Unknown History aerosol inhaler Shortness Of Breath Or Wheezing levonorgestrel 21 mcg/24 hours (8 1 device intrauterine 12/30/22 02/02/23 Unknown History yrs) 52 mg intrauterine device (Mirena) apple cider vinegar 300 mg tablet 300 mg PO DAILY 01/25/23 02/02/23 Unknown History Exam Height,Weight and Vital Signs: Height 5 ft Weight 94.517 kg Last Vital Signs Temp 96.3 F L 02/16/23 06:39 Pulse 94 02/16/23 06:39 Resp 16 02/16/23 06:39 BP 114/67 02/16/23 06:39 Pulse Ox 98 02/16/23 06:39 O2 Del Method Room Air 02/16/23 06:39 Pertinent Lab Results Pertinent Lab Results: Laboratory Tests 02/11/23 02/11/23 02/16/23 07:00 07:03 06:15 WBC 5.8 RBC 5.15 Hgb 14.4 Hct 41.9 MCV 81.4 MCH 28.0 MCHC 34.4 RDW 12.2 Plt Count 288 MPV 10.3 Immature Gran % (Auto) 0.3 Neut % (Auto) 57.6 Lymph % (Auto) 29.2 [place] % (Auto) 8.2 Eos % (Auto) 3.8 Baso % (Auto) 0.9 Lymph # (Auto) 1.7 [place] # (Auto) 0.5 Eos # (Auto) 0.2 Baso # (Auto) 0.1 Abs Immat Gran (auto) 0.02 Absolute Neuts (auto) 3.3 Absolute Nucleated RBC 0.000 Nucleated RBC % (auto) 0.0 PT 12.3 INR 1.0 APTT 30.4 Sodium 139 Potassium 3.6 Chloride 103 Carbon Dioxide 28 Anion Gap 12 BUN 12 Creatinine 0.87 Estim Creat Clear Calc 90.9 Estimated GFR > 60 Random Glucose 90 Estimat Average Glucose 97 Hemoglobin A1c % 5.0 Insulin Level 8 Calcium 9.5 Total Bilirubin 0.7 AST 18 ALT 16 Alkaline Phosphatase 55 C-Reactive Protein 0.18 Total Protein 7.1 Albumin 4.3 Triglycerides 92 Cholesterol 126 LDL Cholesterol, Calc 74 HDL Cholesterol 34 L TSH 1.38 Urine Test NEGATIVE Blood Type A Positive Antibody Screen NEGATIVE Airway Heart: rrr Lungs: cta Assessment and Plan Assessment Anesthesia Assessment: Anesthesia Plan Discussed and Chart Reviewed Final Anesthetic Review Family History of Problems with Anesthesia: No History of Problems with Anesthesia: No NPO: Yes ASA Class: III Final Preanesthetic Review: No Changes in Pt Med Stat, Meds/Allgs Chart Reviewed, Consent Obtained/Reviewed and Anes Risks/Benef Reviewed Patient Risk: Intermediate Procedure Risk: Intermediate Anesthetic Plan Anesthetic Plan: GA Disposition: Standard PACU
--- NOTE | 2023-02-16 07:34 | P.BOP_ITS ---
Brief Operative Note Date of Service: 02/16/23 Pre-op diagnosis: Morbid obesity with comorbidities (see below) Post-op diagnosis: same Procedure: INITIAL PATIENT BMI ON PRESENTATION AT OUR OFFICE: 48 kg/m2 LAST BMI BEFORE SURGERY: 40.3 kg/m2 COMORBIDITIES: asthma, liver fibrosis ?The patient presented to the Weight Management Program with significant obesity that was negatively impacting the patient's comorbidities as listed above.? The program is a phased program with a special focus on preoperative medical weight management to promote substantial weight loss and prepare the patients for the second phase of the program: bariatric surgery. The patient participated in an intensive weekly lifestyle ?intervention and exercise program during which the patient ?has lost between the initial office visit and the last preoperative visit 37.8lbs, or 15.37% of initial actual body weight. It was deemed appropriate for the patient to now have bariatric surgery. In light of the current Covid-19 pandemic and the well documented strong association of obesity and increased risk of worse outcomes if infected with Covid-19 (REFERENCES: https://pubmed.ncbi.nlm.nih.gov/81967820/ ,? https://pubmed.ncbi.nlm.nih .gov/24542675/ ), any delay in undergoing bariatric surgery may lead to the patient's worsening health condition and increased?risk of more severe Covid-19 disease if infected. In addition a recent?study from [facility] published in [employer] [facility] on 02/17/2021 ([email or web address]) found that, among patients with obesity, substantial weight loss achieved with surgery was associated with improved outcomes of COVID-19 infection. The findings suggest that obesity can be a modifiable risk factor for the severity of COVID-19 infection. In addition, the patient met the BMI-criteria for bariatric surgery based on the BMI on initial presentation. The patient should not be penalized for achieving such weight loss because ?it is not sustainable long-term without surgical intervention and it was achieved in preparation for bariatric surgery ?under my direction and based on my published research ([email or web address]).[email or web address] and? [email or web address].soard.org/article/[email or web address](43)[email or web address]-X/pdf ) ?that a 10% preoperative weight loss improves long-term weight loss after surgery and reduces perioperative complications.? Insurance carriers such as [facility] have endorsed my recommendations ?and have included in their policies criteria to include a 10% preoperative weight loss requirement. PROCEDURE: Esophago-gastroscopy laparoscopic sleeve gastrectomy and laparoscopic gastropexy INDICATIONS: This is a 37 year-old female who was electively scheduled for laparoscopic, possibly open sleeve gastrectomy. The risks and complications of the procedure were discussed with the patient in advance, particularly the possibility of ; pulmonary embolism; staple line leak; bleeding; GERD; cardiac, pulmonary, or renal complications; as well as long-term problems such as insufficient weight loss, vitamin deficiency, strictures, or ulcers. The patient understood all the risks, and was in agreement to proceed with surgery. DESCRIPTION OF PROCEDURE: After informed consent was obtained from the patient, the patient was given preoperative antibiotics, and was transferred to the operating room. After successful induction of general anesthesia, pneumatic compression devices were placed on both lower extremities. An upper endoscopy was performed next. The oropharynx and esophagus appeared to be within normal limits. There was no diaphragmatic hernia present consistent with the findings of the preoperative upper GI. The stomach was entered. Then after all fluid and air were suctioned and the stomach was fully decompressed, the scope was withdrawn and secured in the mid esophagus. The patient was then prepped and draped in the usual sterile manner, and abdomi nal access was established at the right upper quadrant with the Jazmin technique. A 12 mm blunt port was inserted, and the abdomen was insufflated with CO2 to a pressure of 15 mmHg. Under direct visualization, additional ports were placed, specifically two 5 mm Versi-step ports to the left upper quadrant, and a 5 mm Versi-Step port to the right upper quadrant. 1% lidocaine plain was used to infiltrate all port sites as well as all fascia defects. Following that, the patient was placed in a steep reverse Trendelenburg position. An additional 5 mm port was placed to the right flank for the Mediflex retractor that was used to retract the left lobe of the liver. The gastro-esophageal fat pad was opened with the ultrasonic device (Thgaviotaerbeat, Olympus) and the anterior esophagus and hiatus were exposed. The angle of His was opened with the ultrasonic device the fundus of the stomach from any diaphragmatic and splenic attachments. I then opened the gastrocolic ligament between the transverse colon and the greater curvature of the stomach with the ultrasonic device to enter the lesser sac and facilitate the ligation of the short gastric vessels. I started at a mid-point along the greater curvature and using the Thunderbeat, all short gastric vessels were divided all the way to the angle of His until the left dany was completely dissected at its entirety. I then divided the gastro-colic ligament distally to a distance of about 3-4 cm proximal to the pylorus. The stomach was then divided transversely with two Endo BUDDY-45 purple and three BUDDY-60 articulating purple loads using the [employer] stapler and loads. Every effort was made that the gastric sleeve had a tubular shape and an even caliber throughout. Once the sleeve resection was completed, the staple line of the gastric sleeve was reinforced with Hemoclips. The resected stomach was retrieved without difficulty from the Jazmin port. A gastropexy was then performed in order to prevent postoperative GERD and partial gastric volvulus. Several interrupted 2.0 Surgidac sutures were placed between the sleeve's staple line and the previously divided greater omentum and gastro-colic ligament using the Endo-Stitch device. ?An upper endoscopy was performed. There was no narrowing at the GE junction. The scope was easily advanced all the way to the pylorus which was clearly visualized. There was no narrowing anywhere and the sleeve's caliber was even throughout. The sleeve's staple line was inspected and there was no evidence of ischemia, bleeding or dehiscence. At that point the gastroscope was withdrawn from the patient?s mouth while we were decompressing the bowel and the stomach from any remaining air. I looked into the lesser sac to see how the sleeve was situating and it was situating well. There was no bleeding from the staple line, spleen, or short gastric vessels. The Mediflex retractor was removed, and the undersurface of the liver was inspected and there was no bleeding. The patient was placed in supine position. I closed the fascial defect of the 12 mm port site with a figure of eight #1 Polysorb suture. Then 30cc Ropivacaine plain with 10 mg of Dexamethasone were used to infiltrate the fascial closure as well as all skin incisions. At this point, the abdomen was deflated, all ports were removed under direct vision, and no bleeding was noted from any of the port sites. The skin incisions were irrigated with saline and were closed with 4-0 absorbable monofilament sutures. Steri-Strips and OpSites were used to cover all incisions. The patient was extubated and was transferred in stable condition to the recovery room for further care. I was present and performed all morris parts of the procedure. Ms. Gonzáles was the family readiness support assistant. There were no residents to assist with this case. Tru Lozano MD, PhD, FACS Surgeon: Bernabe Lozano MD Anesthesia: GETA, local and other (TAP block) Was an Lead Javascript Developer used for this Procedure?: No Lead Javascript Developer: Carole Gonzáles Estimated blood loss (mL): 10 IV fluids (mL): 2,000 Urine output (mL): 0 Pathology: other (Stomach) Condition: stable Disposition: PACU
--- NOTE | 2023-02-16 07:37 | P.PNGS_ITS ---
Subjective Subjective Date of Service: 02/17/23 Interval history: Feels well. Mild incisional pain. She is tolerating phase 1 bariatric diet Physical Exam 2 Vital Signs: Vital Signs: Last Vital Signs Temp 96.3 F L 02/16/23 06:39 Pulse 94 02/16/23 06:39 Resp 16 02/16/23 06:39 BP 114/67 02/16/23 06:39 Pulse Ox 98 02/16/23 06:39 O2 Del Method Room Air 02/16/23 06:39 BMI result Body Mass Index 40.7 GI: Inspection: Yes normal to inspection, Yes incision (clean, dry and intact) and Yes obesity Extrem: Right lower extremity: normal to inspection (no calf tenderness) L eft lower extremity: normal to inspection (no calf tenderness) Objective Data Active Medications Lactated Ringer's (Lr) 1,000 mls @ 999 mls/hr IV .Q1H1M JIMMY Stop: 02/16/23 08:15 Last Admin: 02/16/23 06:37 Dose: 999 mls/hr Documented By: LISA Labs 02/17/23 06:04 02/17/23 06:04 Labs: Laboratory Results - last 24 hr 02/16/23 06:15 Urine Test NEGATIVE Procedures Date of Service Date of Service: 02/17/23 Progress Note: A&P Assessment and plan (1) Morbid obesity: Status: Acute Assessment and Plan: s/p laparoscopic sleeve gastrectomy and gastropexy Doing well Will check am labs and if OK the patient will be discharged home (2) Depression, unspecified: Status: Acute (3) Stress incontinence: Status: Acute (4) Asthma: Status: Acute (5) Liver fibrosis: Status: Acute (6) S/P laparoscopic sleeve gastrectomy: Status: Acute Time Spent With Patient Time: Total time managing care of this patient today ____ minutes. Quality Stroke Does the patient have a stroke diagnosis?: No VTE Prior VTE?: No VTE Risk Level:: Surgical - moderate VTE Device Contraindication: N/A - Device Ordered VTE Drug Contraindication: Treatment Not Indicated
--- NOTE | 2023-02-16 09:35 | PM.DS ---
DS: Providers Provider Date of Service: 02/17/23 Date of admission: 02/16/23 06:03 Primary care physician: Santo Byrd COMMERCIAL REAL ESTATE ASSISTANTJessica DS: Diagnosis Discharge Diagnosis (1) Morbid obesity: Status: Acute (2) Depression, unspecified: Status: Acute (3) Stress incontinence: Status: Acute (4) Asthma: Status: Acute (5) Liver fibrosis: Status: Acute DS: Summary Hospital Course Hospital Course: ADMITTING DIAGNOSIS: morbid obesity, fatty liver DISCHARGE DIAGNOSIS: same, s/p laparoscopic sleeve gastrectomy PAST SURGICAL HISTORY: hand surgery PROCEDURE: upper endoscopy, laparoscopic sleeve gastrectomy DISCHARGE SUMMARY: History of Present Illness: The patient is a 37 year-old woman with a BMI of 48 kg/m2 and associated co-morbidities as described above. The patient had extensive work-up, lost 35.4 lbs preoperatively and was electively scheduled for laparoscopic, possible open sleeve gastrectomy and gastropexy. Risks and complications of the surgery were discussed with the patient in advance, particularly the possibility of , pulmonary embolism, anastomotic leak, bleeding, bowel injury, GERD, cardiac, renal or pulmonary complications. The patient understood all the risks and was in agreement with the surgical plan. Hospital Course: The patient underwent an uneventful laparoscopic sleeve gastrectomy with gastropexy on the day of admission. Postoperatively, the patient was transferred to the surgical floor. The patient received IV Acetaminophen and IV dilaudid for pain control. Patient was started on bariatric phase 1 diet POD #0. On postoperative day one, the patient was feeling well without nausea, vomiting, fevers, or tachycardia. The patient had some mild incisional pain and the abdomen was soft. On the morning of postoperative day one, the patient was continued on 1 ounce of water or ice every half hour. During the day, the patient did fairly well, having some incisional pain, but able to ambulate adequately and to tolerate liquids well. Since the patient is doing well, we decided that the patient was ready to be discharged. The patient was given instructions to follow-up with me next week and to call my office for any fever over 101, persistent abdominal pain, nausea, vomiting, GERD, symptoms of DVT such as calf tenderness, or leg swelling, or pulmonary embolism such as chest pain or shortness of breath. The patient was also instructed to drink 40-60 ounces of liquids per day using the 1-ounce cups. The patient had been given prescriptions for Tylenol for pain, Zofran prn for nausea, and pantoprazole and carafate previously. The patient was encouraged to ambulate and use the incentive spirometer. The patient was allowed to shower, but no baths, and encouraged to stay active at home. All of these instructions were given to the patient personally. All questions were answered and the patient understood all instructions, the instructions were also given to the patient in print. Time Attestation Discharge coordination time: Less than 30 minutes Quality: Safe Use of Opioids Does Pt have an Active Cancer Diagnosis on the Problem List?: No Quality: Stroke Does the patient have a stroke diagnosis?: No Physical Exam Vital Signs: Vital Signs: Last Vital Signs Temp 97.6 F 02/16/23 09:30 Pulse 88 02/16/23 09:30 Resp 20 02/16/23 09:30 BP 136/76 02/16/23 09:30 Pulse Ox 100 02/16/23 09:30 O2 Del Method Simple Mask 02/16/23 09:30 O2 Flow Rate 6 02/16/23 09:30 BMI result Body Mass Index 40.7 DS: Data Data Completed and Pending Pending studies at discharge: Pending at discharge 02/16/23 08:51 Surgical [PTH] Routine Labs on day of discharge: Laboratory Results - last 24 hr 02/16/23 06:15 Urine Test NEGATIVE Discharge Plan Discharge Anticipated Discharge Date/Time: 02/17/23 10:00 Patient Disposition: Home, Self-Care Discharge Diagnosis: s/p sleeve gastrectomy Referrals: Santo Byrd, COMMERCIAL REAL ESTATE ASSISTANT-BC [Primary Care Provider] - 1 Week Discharge Medications: Continued Mirena 21 mcg/24 hours (8 yrs) 52 mg intrauterine device 1 device intrauterine albuterol sulfate 90 mcg/actuation HFA aerosol inhaler 2 puff inhalation Q6H PRN (Reason: Shortness Of Breath Or Wheezing) pantoprazole 40 mg tablet,delayed release (DR/EC) 40 mg PO DAILY Qty: 30 2RF sucralfate 100 mg/mL suspension 10 ml PO BID Qty: 400 2RF ondansetron 4 mg tablet,disintegrating 4 mg PO Q12H Qty: 20 0RF Rx Instructions: Only take one every 12 hours as needed if you have nausea Discontinued apple cider vinegar 300 mg Tablet 300 mg PO DAILY polyethylene glycol 3350 [Miralax] 17 gram powder in packet 17 g PO DAILY Qty: 14 0RF Rx Instructions: Mix each packet with 8oz of water, Crystal light, or Gatorade zero, or Propel and do 7 packets on 02/14/23 and another 7 packets on 02/15/23 Discharge Orders: Discharge Order (Routine); Ordered 02/17/23 Ordered By: Bernabe Lozano Activity on Discharge: As tolerated Stand Alone Forms: Patient Portal Discharge page Care Plan Goals: weight loss Health Concerns: morbid obesity Plan of Treatment: No tub baths, sex or returning to work until discussed at first post op appointment. No exercise, alcohol, tobacco or illegal drug use. Continue to use incentive spirometer hourly while awake. Walk in home for 5- 10 minutes every 2 hours during the first week. Continue phase 1 diet today and start phase 2 diet tomorrow morning. Follow all instructions in the bariatric handbook and call with any questions. 1. Please call your doctor or come back to the emergency room should any new symptoms arise. 2. You will receive a courtesy call from [facility] 24-48 hours after discharge. 3. Activity: abstain from alcohol, practice limited stair climbing, no bending, no driving, no exercise, no illicit substances, no lifting, no sex, no tub bath, no work. 4. Diet: continue as discussed with bariatric team.. 5. Dressing Change/Wound Care: Do not change or remove surgical dressings unless they are wet or soiled. 6. Call your doctor if: - Your temperature exceeds 101.5 F - You experience excessive pain or swelling - You have an unexpected reaction to medication - You have excessive bleeding - You experience continued vomiting/nausea - Your incision begins to separate - Your incision shows signs of infection such as increased redness, swelling, excessive pain, heat, or drainage (light blood or clear fluid is normal) 7. General instructions: No lifting greater than 5 lbs for 1 week and not more than 20lbs the next 3?weeks. No driving until seen at the office in 5-7 days after surgery. If you do not move your bowels in the next 2 days, please tell?Dr. Lozano. Please walk around your home every hour or two to prevent blood clots from forming in your legs. You do not need to wake from sleeping to walk. Please sleep in a bed or couch to prevent kinking at the hips and knees. Please take your incentive spirometer (your lung blacktop spreader) home with you and use it for the next few days to prevent pneumonia. You may shower, no hot tubs, baths or swimming pools.?Please follow the post op diet instructions you are?given by Dr Olga keller? and text me daily at 5-6pm for an update.?If you have any issues or concerns or questions please communicate this to him via text.? The Celebrate shakes have all of the bariatric vitamins you need if you consume these shakes. If you are drinking other protein shakes, you will need to purchase the Celebrate multivitamins and calcium that are available in the hospital gift shop on the first floor of the [facility].??Do not take anything without first discussing with Dr Lozano. Please make sure you are consuming at least 40 ounces of fluids per day starting the?day AFTER your discharge from the hospital. Always drink 1-2 ml per minute using the 5ml?syringe. If you drink faster you may experience?bloating,?gas pain, burping, nausea or heartburn. In that case please slow down your pace and use the syringe to?understand better the?proper?pace and volume of drinking. Do not hesitate to contact the office with any questions at . The patient's medical history has been reviewed and they are considered low risk for post op DVT and therefore DVT prophylaxis is not considered necessary. Travel after surgery was reviewed. The patient has not disclosed any travel plans during the first 30 days after surgery and they have been advised that within the first 30 days after surgery any bus, plane, train or car travel over 2 hours in duration is contraindicated due to the possibility of developing blood clots from immobility. Any travel, needs to include periods of ambulation of 10 minutes in duration every 2 hours. The patient was instructed to discuss any plans for travel during this period with their bariatric surgeon. Assessment: stable, post op sleeve gastrectomy
[2023-02-16 10:25] LABS: Hematocrit 40.9 % (37.0-47.0); Hemoglobin 13.7 g/dl (12.0-16.0)
[2023-02-16 10:50] LABS: Anion Gap 14 (12-20); Blood Urea Nitrogen 12 mg/dL (9-16); Calcium 8.9 mg/dL (8.4-10.2); Carbon Dioxide 21 mmol/L (22-29); Chloride 106 mmol/L (96-108); Creatinine Clr Calc Pharmacy 100.8; Estimated Glomerular Filt Rate > 60; Glucose Random 97 mg/dL (60-115); Potassium 4.4 mmol/L (3.3-5.1); Sodium 137 mmol/L (135-145)
[2023-02-16] MEDS: Famotidine/PF 20 MG/2 ML VIAL IVPUSH ×2 (11:10→20:32)
[2023-02-16] MEDS: Metoclopramide HCl 10 MG/2 ML VIAL IVPUSH (11:10)
[2023-02-16] MEDS: Lactated Ringers 1,000 ML 100 ML IVCONT ×2 (11:10→20:32)
[2023-02-16] MEDS: Acetaminophen 1,000 MG/100 ML PIGGYBACK 16.7 MG IV ×2 (14:20→19:10)
[2023-02-16] MEDS: ondansetron HCL 4 MG/2 ML VIAL IVPUSH (17:09)
[2023-02-16] MEDS: 0.9 % Sodium Chloride Flush 3 ML SYRINGE IVFLUSH (20:33)
[2023-02-17] VITALS: BP 130/71; PULSE 86; RESP 16; TEMP 35.9; O2SAT 96
[2023-02-17] MEDS: Acetaminophen 1,000 MG/100 ML PIGGYBACK 16.7 MG IV ×2 (01:03→06:26)
[2023-02-17 03:54] VITALS: BP 120/57; PULSE 87; RESP 14; TEMP 36.2; O2SAT 97
[2023-02-17] MEDS: Lactated Ringers 1,000 ML 100 ML IVCONT (06:25)
[2023-02-17 07:08] LABS: MANUAL DIFF FLAG NO
[2023-02-17 07:12] LABS: Basophils Percent Auto 0.1 % (0-2); Hematocrit 39.9 % (37.0-47.0); Hemoglobin 13.7 g/dl (12.0-16.0); Imm Gran Abs Auto 0.06 X10*3/uL (0.00-0.03); Imm Gran Pct Auto 0.5 % (0.0-0.4); Lymphocytes Absolute Auto 1.1 X10*3/uL (1.2-4.9); Lymphocytes Percent Auto 8.3 % (20-40); Mean Corpuscular HGB Conc 34.3 g/dl (31.0-35.0); Mean Corpuscular Hemoglobin 28.6 pg (27.0-33.0); Mean Corpuscular Volume 83.3 fL (80.0-98.0); Mean Platelet Volume 11.8 fL (9.4-12.3); Monocytes Absolute Auto 0.9 X10*3/uL (0.1-1.2); Monocytes Percent Auto 7.1 % (2-11); Neutrophils Absolute Auto 10.6 x10*3/uL (2.0-8.3); Platelet Count 273 X10*3/uL (160-400); Red Blood Count 4.79 X10*6/uL (4.20-5.50); Red Cell Distribution Width 12.6 % (11.0-16.0); White Blood Count 12.6 X10*3/uL (4.8-10.8)
[2023-02-17 07:15] VITALS: BP 113/59; PULSE 86; RESP 16; TEMP 36.5; O2SAT 99
[2023-02-17 07:24] LABS: Anion Gap 14 (12-20); Blood Urea Nitrogen 9 mg/dL (9-16); Calcium 9.1 mg/dL (8.4-10.2); Carbon Dioxide 20 mmol/L (22-29); Chloride 107 mmol/L (96-108); Creatinine Clr Calc Pharmacy 107.8; Estimated Glomerular Filt Rate > 60; Glucose Random 75 mg/dL (60-115); Potassium 4.1 mmol/L (3.3-5.1); Sodium 137 mmol/L (135-145)
[2023-02-17] MEDS: Famotidine/PF 20 MG/2 ML VIAL IVPUSH (07:27)
--- NOTE | 2023-02-17 09:45 | MHC.CM.PN ---
Addendum entered by Vivi Liz 02/17/23 09:56: Patient is discharged today. Original Note: Female 37 S/P Gastric sleeve Lives with Mother + S.O. Independent with all functional mobility. DP home self care. Patient will arrange for transport home.
--- NOTE | 2023-02-17 11:21 | HO.POSTANES ---
Post Anesthesia Evaluation Post Anesthesia Evaluation Date of Service: 02/16/23 Vital Signs: Vital Signs Temp Pulse Resp BP Pulse Ox O2 Del Method 02/17/23 07:47 Room Air 02/17/23 07:15 97.7 F 86 16 113/59 L 99 Room Air 02/17/23 03:54 97.2 F 87 14 120/57 L 97 Room Air 02/17/23 00:00 96.7 F L 86 16 130/71 96 Room Air Anesthesia: General Endotracheal-GETA Mental Status: Awake Pain Control: Satisfactory Nausea/Vomiting: None Hydration: Adequate Anesthesia-Related Issues: No Anes. Related Issues
== END 2023-02-17 10:15 | disposition home or self-care (01) | DRG 403 ==
LOC: HO.SSSA 09:33 → HO.S3 09:51
PROVIDERS: Anesthesiology; Physician Assistant; Admitting Provider Surgery; PCP Nurse Practitioner Family; Visit Provider Surgery
PROC: 0DB64Z3 Excision of Stomach, Percutaneous Endoscopic Approach, Vertical (ICD-10-PCS; CPT 43845; principal; 2023-02-16 07:30)
DX: E66.01 Morbid (severe) obesity due to excess calories (principal); K74.00 Hepatic fibrosis, unspecified; K76.0 Fatty (change of) liver, not elsewhere classified; Z68.41 Body mass index [BMI] 40.0-44.9, adult; N39.3 Stress incontinence (female) (male); F32.A Depression, unspecified; J45.909 Unspecified asthma, uncomplicated; Z23 Encounter for immunization; Z88.0 Allergy status to penicillin; Z79.899 Other long term (current) drug therapy
CPT/HCPCS: 36415; 80048; 80053; 80061; 81025; 83036; 83525; 84443; 85014; 85018; 85025; 85610; 85730; 86140; 86850; 86900; 86901; 88304; 88305; 88307; 88342; 90686; 99024; A4649; C9088; C9145; J0131; J1100; J1170; J1956; J2250; J2405; J2704; J2765; J2795; J3010; J7120

== ENCOUNTER → 2023-02-16 06:03 | Outpatient (BNV) | payer BC, SELFPAY | PROVIDERS: Admitting Provider Surgery; PCP Nurse Practitioner Family; Visit Provider Surgery | DX: E66.01 Morbid (severe) obesity due to excess calories (principal); Z68.41 Body mass index [BMI] 40.0-44.9, adult | CPT/HCPCS: 43659; 43775; 99024 ==

== ENCOUNTER 2023-02-23 10:29 | Outpatient (AMB) | payer BC, SELFPAY ==
--- NOTE | 2023-02-23 11:11 | MHC.OFFVISWM ---
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 She is 7 days status post laparoscopic sleeve gastrectomy performed on 02/16/2023. She has moved her bowels and denies any significant abdominal pain. She is tolerating to celebrate for in 1 shakes with 2 scoops each, and 1 orgain shake with 1 scoop. A proximally 45-50 oz of fluid daily. [facility] Medical History (Updated 02/18/23 @ 00:03 by Trina Coyne) Stress incontinence Depression, unspecified Fatty liver disease, nonalcoholic Depression COVID-19 Asthma Surgical History (Updated 02/23/23 @ 11:17 by Denise Lino CMA) S/P laparoscopic sleeve gastrectomy Hx of hand surgery Family History Mother No problems noted. Father Diabetes Brother No problems noted. Son No problems noted. Daughter Asthma Maternal Grandmother Breast cancer Paternal Uncle Colon cancer Paternal Grandfather Colon cancer Social History Household Members: Family Housing: House Are you a primary palliative care specialist to a significant other at home: No Do you presently have visiting nurse or other home services: No Alcohol intake: current Alcohol intake frequency: holidays/special occasions only Patient Tobacco Use Status: Never used Tobacco e-Cigarette/Vaping Use: Never Used Second Hand Smoke Exposure: No service: No Current occupational status: employed Current occupation: [employer] Current occupational exposures/hazards: Yes Cognitive needs: No Hearing needs: No Vision needs: No Female Reproductive History Menstrual Age of Menarche: 7 Physical Exam Vital Signs: Last Vital Signs Temp 98.6 F 02/23/23 11:17 Pulse 87 02/23/23 11:17 BP 109/56 L 02/23/23 11:17 Pulse Ox 98 02/23/23 11:17 Oxygen Delivery Method Room Air 02/23/23 11:17 BMI result Body Mass Index 38.4 GI Inspection: Yes incision (c/d/i) Assessment & Plan Assessment & Plan (1) S/P laparoscopic sleeve gastrectomy: Code(s): Z98.84 - Bariatric surgery status Plan: POD 7 s/p LSG on 02/16/[address] Lozano Weight loss prior to surgery was 38.1 pounds or 15.4 % TBWL. Original weight on 09/22/22 was 246 pounds and op weight was 2 of 7.9 pounds. Be sure to text Dr Lozano exactly 1 week after surgery your weight from your home scale so he can adjust your meal plan. Continue meal plan until f/u milagro Zamarripa in 2 weeks May shower, no submersion in bath for another week Continue abdominal binder with activity and exercise for the next 2 weeks. Exercise prior to surgery was outdoor biking and walking, may resume. She is considering buying an Zoosktical machine for home use No abdominal exercises for 6 weeks post operatively Will be emailed link to post op video for review Reminded of the pace of drinking, 2 mL per minute, 1 oz/15 min. Coding Level of Care Code Global (41451) Diagnoses S/P laparoscopic sleeve gastrectomy Z98.84
[2023-02-23 11:17] VITALS: BP 109/56; PULSE 87; TEMP 37; O2SAT 98; BMI 38.4
== END 2023-02-23 11:58 | disposition home or self-care (01) ==
PROVIDERS: PCP Nurse Practitioner Family; Visit Provider Physician Assistant Surgical
DX: E66.9 Obesity, unspecified (principal); Z68.38 Body mass index [BMI] 38.0-38.9, adult; Z90.3 Acquired absence of stomach [part of]; Z98.84 Bariatric surgery status
CPT/HCPCS: 99024

== ENCOUNTER → 2023-02-23 10:29 | Outpatient (BNVA) | payer BC, SELFPAY | PROVIDERS: PCP Nurse Practitioner Family; Visit Provider Physician Assistant Surgical ==

== ENCOUNTER 2023-03-15 12:46 | Outpatient (AMB) | payer BC, SELFPAY ==
--- NOTE | 2023-03-15 12:03 | MHC.OFFVISWM ---
Intake VS Expanded 03/15/23 12:11 Height 5 ft Weight 190 lb 3.2 oz BMI 37.1 Intake Visit Reasons: (TV) PO LSG 02/16/23 Allergies amoxicillin Adverse Reaction (Mild, Verified 02/23/23 11:12) Abdominal Pain Penicillins Adverse Reaction (Mild, Verified 02/23/23 11:12) Abdominal Pain HPI HPI Comments History of Present Illness Details This?a?37?yo female who is s/p LSG without hiatal hernia repair on?02/16/2023. Presents for one-month post op visit. Weight today is 190.2 pounds, with a BMI of 37.1. There has been a 57 pound weight loss,(initial weight 247.2 pounds) since starting the program on 09/22/2022 reflecting a 23% total body weight loss and a weight loss of 17.7 pounds since surgery (operative weight 207.9 pounds) reflecting a 8.5% TBWL since surgery. No complaints of nausea, emesis, abdominal pain or reflux. Reports infrequent but normal bowel movements every 1-2 days and uses stool softeners regularly. Does not like the almond milk flavor and doesn't like the Orgain Present meal plan includes: 2 celebrate 4 in 1 w 2 scoops each in 8 oz almond milk Orgain 1/2 scoop ZP bar drinking 60 oz water total including shakes ? Exercise routine includes: walking outside, 2.5-3 miles, 3-4 days per week, 350-400 calories has gym membership [facility] Medical History (Updated 03/15/23 @ 12:45 by ROGER Gallo) Stress incontinence Depression, unspecified Fatty liver disease, nonalcoholic Depression COVID-19 Asthma Surgical History (Updated 02/23/23 @ 11:17 by Denise Lino CMA) S/P laparoscopic sleeve gastrectomy Hx of hand surgery Family History Mother No problems noted. Father Diabetes Brother No problems noted. Son No problems noted. Daughter Asthma Maternal Grandmother Breast cancer Paternal Uncle Colon cancer Paternal Grandfather Colon cancer Social History Household Members: Family Housing: House Are you a primary healthcare corporate account director to a significant other at home: No Do you presently have visiting nurse or other home services: No Alcohol intake: current Alcohol intake frequency: holidays/special occasions only Patient Tobacco Use Status: Never used Tobacco e-Cigarette/Vaping Use: Never Used Second Hand Smoke Exposure: No service: No Current occupational status: employed Current occupation: [employer] Current occupational exposures/hazards: Yes Cognitive needs: No Hearing needs: No Vision needs: No Female Reproductive History Menstrual Age of Menarche: 7 Assessment & Plan Assessment & Plan (1) Obesity (BMI 30-39.9): Code(s): E66.9 - Obesity, unspecified Plan: Patient has a displaced for the shake with 1/2 scoop. We will change her meal plan accordingly. Celebrate 4 in 1 protein powder, 2 scoops in the 1st shake, 1 scoop in the 2nd shake and 1 scoop in the 3rd shake. 1 and 1/4 zone perfect bar. Encouraged to go to the gym and achieve a goal of 2000 calories per week. Return to clinic 3 weeks. Coding Level of Care Code Global (64352) Diagnoses Obesity (BMI 30-39.9) E66.9
[2023-03-15 12:11] VITALS: BMI 37.1
== END 2023-03-15 12:47 | disposition home or self-care (01) ==
LOC: HO.HBS 12:46
PROVIDERS: PCP Nurse Practitioner Family; Visit Provider Physician Assistant Surgical
DX: E66.9 Obesity, unspecified (principal); Z68.37 Body mass index [BMI] 37.0-37.9, adult
CPT/HCPCS: 99024

== ENCOUNTER → 2023-03-15 12:46 | Outpatient (BNVA) | payer BC, SELFPAY | PROVIDERS: PCP Nurse Practitioner Family; Visit Provider Physician Assistant Surgical ==

== ENCOUNTER 2023-03-24 14:59 | Outpatient (AMB) | payer BC, SELFPAY ==
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
== END 2023-03-24 16:00 | disposition home or self-care (01) ==
PROVIDERS: PCP Nurse Practitioner Family; Visit Provider Counselor Mental Health
DX: F32.A Depression, unspecified (principal)
CPT/HCPCS: 99499

== ENCOUNTER → 2023-03-24 14:59 | Outpatient (BNVA) | payer BC, SELFPAY | PROVIDERS: PCP Nurse Practitioner Family; Visit Provider Counselor Mental Health ==

== ENCOUNTER 2023-04-09 11:39 | Outpatient (REF) | payer BC, SELFPAY ==
[2023-04-10 09:49] LABS: CT PCR NOT DETECTED (Not Detect.); NG PCR NOT DETECTED (Not Detect.)
[2023-04-10 11:38] LABS: BV Int Neg Control Negative (Negative); BV Int Pos Control Positive (Positive)
== END 2023-04-09 11:40 | disposition home or self-care (01) ==
LOC: HO.LAB 11:39
PROVIDERS: PCP Nurse Practitioner Family; Visit Provider Advanced Practice Midwife
DX: Z20.2 Contact with and (suspected) exposure to infections with a predominantly sexual mode of transmission (principal); A59.9 Trichomoniasis, unspecified; E66.01 Morbid (severe) obesity due to excess calories; Z97.5 Presence of (intrauterine) contraceptive device
CPT/HCPCS: 0353U; 87480; 87510; 87660

== ENCOUNTER 2023-04-09 11:39 | Outpatient (AMB) | payer BC, SELFPAY ==
--- NOTE | 2023-04-09 11:40 | MHC.OFFVIS ---
Intake Vital Signs 04/09/23 11:46 Height 5 ft Weight 186 lb BMI 36.3 BP 120/74 Intake Visit Reasons: SAY Detail Supervisor Required: No Information Interpreted: clinical only Software Systems Analyst: Software Systems Analyst Present Allergies amoxicillin Adverse Reaction (Mild, Verified 04/09/23 11:40) Abdominal Pain Penicillins Adverse Reaction (Mild, Verified 04/09/23 11:40) Abdominal Pain Is last menstrual period known: Yes Last menstrual period: 03/22/23 Patient : No Do you need a note to return to daycare/school/sports/work: No HPI SAY HPI Details Patient is here for test of cure of trichomoniasis. She took the treatment and abstain for a while and she believes her partner got treated. They have resumed unprotected sex with sometime. She has a Mirena IU S which long she has been getting regular heavy periods for well over a year the last periods started on March 22. She has not been using any other protection since she had been scheduled for a replacement but then got COVID and that had to get canceled. In the meantime she had bariatric surgery with Dr. Jackman, and she has lost significant weight and she has worked up to walking with intermittent jogging 5 K every day she is feeling better and breathing better and is continuing with the shakes and the protein bar. She has a goal of losing about 50 more lb. She says that I was able to see the Mirena string at the last visit. [facility] Medical History Stress incontinence Depression, unspecified Fatty liver disease, nonalcoholic Depression COVID-19 Asthma Surgical History S/P laparoscopic sleeve gastrectomy Hx of hand surgery Family History Mother No problems noted. Father Diabetes Brother No problems noted. Son No problems noted. Daughter Asthma Maternal Grandmother Breast cancer Paternal Uncle Colon cancer Paternal Grandfather Colon cancer Social History Household Members: Family Housing: House Are you a primary acute care nursing assistant to a significant other at home: No Do you presently have visiting nurse or other home services: No Alcohol intake: current Alcohol intake frequency: holidays/special occasions only Patient Tobacco Use Status: Never used Tobacco e-Cigarette/Vaping Use: Never Used Second Hand Smoke Exposure: No Patient : No service: No Current occupational status: employed Current occupation: [employer] Current occupational exposures/hazards: Yes Cognitive needs: No Hearing needs: No Vision needs: No Female Reproductive History Menstrual Age of Menarche: 7 Date of last menstrual period: 03/22/23 control method: progestin IUCD Total pregnancies: 2 Full term: 2 Date of last pap smear: 12/31/22 (Pap,2008,negative) History of abnormal pap smear: Yes (2003 [facility]) Physical Exam Vital Signs: Last Vital Signs BP 120/74 04/09/23 11:46 BMI result Body Mass Index 36.3 Other: Speculum exam done vagina pink moist adipose tissue there has a runny whitish yellowish discharge that could very well be consistent with trichomoniasis. Multiparous cervix visible but Mirena string is not visible today cervical os probed with Cytobrush but string did not become visible. Assessment & Plan Assessment & Plan (1) Trichomoniasis: Comment: Scripts have been sent. communication with patient about the need for treatment is still pending.....; patient states she and her partner were both treated they use condoms for a while but resumed you PI. Test of cure being done 04/09/2023, discharge is suspicious for trich will await results on Wednesday, recommend condom use both for STI protection and prevention until Mirena is switched out with menses, other testing for STIs ordered. Code(s): A59.9 - Trichomoniasis, unspecified (2) Presence of 52 mg levonorgestrel-releasing intrauterine device (IUD): Comment: Has long since . Patient would like replacement will replace with next menses on 1 of the heaviest days, 2 through four. NEEDS TREATMENT FOR THE TRICH 1ST WITH NEGATIVE TEST OF CURE. Code(s): Z97.5 - Presence of (intrauterine) contraceptive device (3) Morbid obesity: Comment: Actively trying to lose weight is in the bariatric program has lost some weight will be scheduling surgery soon.; is now post surgery has been losing weight steadily and is exercising and increasing her walking running distance daily and doing very well and feels very good about the changes03/25/23. Code(s): E66.01 - Morbid (severe) obesity due to excess calories (4) Screening for cervical cancer: Comment: 12/30/2022 PAP IS NEGATIVE WITH NEGATIVE HPV BUT ABUNDANT INFLAMMATION. SEE POSITIVE TRICH. Code(s): Z12.4 - Encounter for screening for malignant neoplasm of cervix (5) control counseling: Code(s): Z30.09 - Encounter for other general counseling and advice on contraception (6) S/P laparoscopic sleeve gastrectomy: Code(s): Z98.84 - Bariatric surgery status Plan Testing sent for gonorrhea chlamydia trichomoniasis Gardnerella and [place]. Explained to patient that the discharge is suspicious for continued trichomoniasis. Discussed the common challenge of partner non completion of medication or possible re exposure. However we will await the results of the testing to see what is in need of treatment. I did probe the cervix with the Cytobrush to see if the Mirena strings were visible and they are not today perhaps they will become visible with her next menses, but I am ordering an ultrasound to verify that it is still in there and we will have a brief tele visit afterwards. However because the strings are no longer visible to me I would recommend that a knee attempt at removal and replacement be done up at the hospital where possibly more equipment and instruments are available as well as personnel I would recommend that replacement be scheduled with Dr. Pearson when the time comes after positioning of the IUD is verified. MEANWHILE, I I highly recommend use of condoms both from an STI transmission prevention point of view as well as prevention. The IUD is no longer functional even if it is in there and is not offering prevention and around the time of bariatric surgery is discouraged. I also placed orders for other lab work for STI as she says she has not had this done in a long time.. I recommend she call for the results on Wednesday she is also on the portal. If the trich has not been eradicated it will need retreatment as well as all of the above. Orders: Orders CT NG by PCR Today Z01.419 - Encounter for gynecological examination (general) (routine) without abnormal findings Bacterial Vaginosis Panel Today Z20.2 - Contact with and (suspected) exposure to infections with a predominantly sexual mode of transmission Hepatitis B Surface Antigen Today A59.9 - Trichomoniasis, unspecified, E66.01 - Morbid (severe) obesity due to excess calories, Z30.09 - Encounter for other general counseling and advice on contraception, Z97.5 - Presence of (intrauterine) contraceptive device, Z98.84 - Bariatric surgery status Hepatitis C Antibody Today A59.9 - Trichomoniasis, unspecified, E66.01 - Morbid (severe) obesity due to excess calories, Z30.09 - Encounter for other general counseling and advice on contraception, Z97.5 - Presence of (intrauterine) contraceptive device, Z98.84 - Bariatric surgery status HIV Ab/Ag Today A59.9 - Trichomoniasis, unspecified, E66.01 - Morbid (severe) obesity due to excess calories, Z30.09 - Encounter for other general counseling and advice on contraception, Z97.5 - Presence of (intrauterine) contraceptive device, Z98.84 - Bariatric surgery status Syphilis Screen Today A59.9 - Trichomoniasis, unspecified, E66.01 - Morbid (severe) obesity due to excess calories, Z30.09 - Encounter for other general counseling and advice on contraception, Z97.5 - Presence of (intrauterine) contraceptive device, Z98.84 - Bariatric surgery status Coding Level of Care Code Est Pt Level 3 (83418) Diagnoses Trichomoniasis A59.9 Presence of 52 mg levonorgestrel-releasing intrauterine device (IUD) Z97.5 Morbid obesity E66.01 Screening for cervical cancer Z12.4 control counseling Z30.09 S/P laparoscopic sleeve gastrectomy Z98.84
[2023-04-09 11:46] VITALS: BP 120/74; BMI 36.3
== END 2023-04-09 13:37 | disposition home or self-care (01) ==
LOC: HO.HWSM 11:39
PROVIDERS: PCP Nurse Practitioner Family; Visit Provider Advanced Practice Midwife
DX: A59.9 Trichomoniasis, unspecified (principal); Z97.5 Presence of (intrauterine) contraceptive device; E66.01 Morbid (severe) obesity due to excess calories; Z12.4 Encounter for screening for malignant neoplasm of cervix; Z30.09 Encounter for other general counseling and advice on contraception; Z98.84 Bariatric surgery status
CPT/HCPCS: 99213

== ENCOUNTER 2023-04-13 15:18 | Outpatient (AMB) | payer BC, SELFPAY ==
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
[2023-04-13 15:28] VITALS: BP 119/67; PULSE 79; TEMP 36.3; O2SAT 100; BMI 35.3
== END 2023-04-13 15:50 | disposition home or self-care (01) ==
PROVIDERS: PCP Nurse Practitioner Family; Visit Provider Physician Assistant Surgical
DX: E66.9 Obesity, unspecified (principal); Z68.35 Body mass index [BMI] 35.0-35.9, adult; Z90.3 Acquired absence of stomach [part of]; Z98.84 Bariatric surgery status
CPT/HCPCS: 99024

== ENCOUNTER → 2023-04-13 15:18 | Outpatient (BNVA) | payer BC, SELFPAY | PROVIDERS: PCP Nurse Practitioner Family; Visit Provider Physician Assistant Surgical ==

== ENCOUNTER 2023-04-14 14:48 | Outpatient (AMB) | payer BC, SELFPAY ==
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
== END 2023-04-15 11:05 | disposition home or self-care (01) ==
PROVIDERS: PCP Nurse Practitioner Family; Visit Provider Counselor Mental Health
DX: F32.A Depression, unspecified (principal)
CPT/HCPCS: 90834

== ENCOUNTER → 2023-04-14 14:48 | Outpatient (BNVA) | payer BC, SELFPAY | PROVIDERS: PCP Nurse Practitioner Family; Visit Provider Counselor Mental Health ==

== ENCOUNTER 2023-04-23 15:02 | Outpatient (REF) | payer BC, SELFPAY ==
--- NOTE | ~2023-04-23 | US_ITS ---
EXAMINATION: US PELVIS CLINICAL INFORMATION: IUD within this constraint. Last menstrual period 4 days ago. COMPARISON: None available. TECHNIQUE: Ultrasound of the pelvis is performed using both transabdominal and transvaginal transducers along with Doppler. Transvaginal imaging is performed due to inadequate visualization transabdominally. FINDINGS: Uterus measures 8.9 x 4.2 x 4.8 cm. No discrete fibroids are appreciated. No significant free fluid. Bilateral ovaries are unremarkable. Right ovary measures 2.8 x 2.0 x 2.3 cm, volume 6.7 mL. Left ovary measures 2.8 x 1.6 x 2.1 cm, volume 4.9 mL. IUD located within the endometrial cavity. Fundal aspect of the IUD is approximately 0.5 cm from the fundal aspect of the endometrium. Visualization of the endometrium is limited due to the IUD. The imaged of endometrium demonstrates thickness of 5 mm. Multiple nabothian cysts, largest appears complex and measures 2.4 x 1.5 x 2.5 cm. US/US pelvic and transvaginal IMPRESSION: 1. IUD located within the endometrial cavity. Fundal aspect of the IUD is approximately 0.5 cm from the fundal aspect of the endometrium. Visualization of the endometrium is limited due to the IUD. The imaged endometrium demonstrates thickness of 5 mm. 2. Multiple nabothian cysts, largest appears complex and measures 2.4 x 1.5 x 2.5 cm.
== END 2023-04-23 15:03 | disposition home or self-care (01) ==
LOC: HO.US 15:02
PROVIDERS: PCP Nurse Practitioner Family; Visit Provider Advanced Practice Midwife
DX: Z97.5 Presence of (intrauterine) contraceptive device (principal)
CPT/HCPCS: 76830; 76856

== ENCOUNTER 2023-04-28 14:09 | Outpatient (AMB) | payer BC, SELFPAY ==
[2023-04-28 14:13] VITALS: BP 122/76; PULSE 75; O2SAT 98; BMI 35.8
--- NOTE | 2023-04-28 14:13 | A.OFFPC_ITS ---
Vital Signs 04/28/23 14:13 Height 5 ft Weight 183 lb 8 oz BMI 35.8 BP 122/76 Blood Pressure Location Lt brachial Position Sitting Pulse 75 Pulse Source Pulse Oximeter Pulse Oximetry (%) 98 Oxygen Delivery Method Room Air Intake Visit Reasons: 6M Follow up, rescheduled from01/27 Intake Note: pt is here for 6 month follow up Burr Bench Operator Required: No Accompanied by: Self / Same As Patient Allergies amoxicillin Adverse Reaction (Mild, Verified 04/28/23 14:28) Abdominal Pain Penicillins Adverse Reaction (Mild, Verified 04/28/23 14:28) Abdominal Pain Medication List - Last Reconciled 04/28/23 by FREDI Chaney albuterol sulfate 90 mcg/actuation 2 puffs inhalation Q6H PRN levonorgestrel (Mirena) 1 device intrauterine pantoprazole 40 mg PO DAILY sucralfate 10 mL PO BID Tobacco use date assessed: 04/28/23 Dental Screening Dental Screen Date: 04/28/23 Did you have a dental visit in the last 12 months?: Yes Did you have a dental problem in the last 6 months where you did not have access to dental care?: No Was dental information given to patient?: Patient has dentist HPI 6M Follow up, rescheduled from01/27 HPI Details february 16 2023, gastric sleeve. Pt reports feeling great, tolerating food, no GI distress. Pt further denies any n/v, fevers, chills, bloating. Pt is following up at the bariatric center for regular follow ups. PFSH Medical History Stress incontinence Depression, unspecified Fatty liver disease, nonalcoholic Depression COVID-19 Asthma Surgical History S/P laparoscopic sleeve gastrectomy Hx of hand surgery Family History Mother No problems noted. Father Diabetes Brother No problems noted. Son No problems noted. Daughter Asthma Maternal Grandmother Breast cancer Paternal Uncle Colon cancer Paternal Grandfather Colon cancer Social History Household Members: Family Housing: House Are you a primary career and transition teacher to a significant other at home: No Do you presently have visiting nurse or other home services: No Alcohol intake: current Alcohol intake frequency: holidays/special occasions only Patient Tobacco Use Status: Never used Tobacco e-Cigarette/Vaping Use: Never Used Second Hand Smoke Exposure: No service: No Current occupational status: employed Current occupation: [employer] Current occupational exposures/hazards: Yes Cognitive needs: No Hearing needs: No Vision needs: No Female Reproductive History Menstrual Age of Menarche: 7 Questionnaire Thrive Questionnaire Date Thrive assessed: 02/17/23 RICKEY-7 AMB Questionnaire RICKEY-7 Date RICKEY - 7 assessed: 07/28/22 Source: Developed by Drs. Julio Fournier, Augusta Sharpe, Moe Culver and colleagues, with an educational shala from [employer]. Physical exam (Primary Care) Vital Signs: Last Vital Signs Pulse 75 04/28/23 14:13 BP 122/76 04/28/23 14:13 Pulse Ox 98 04/28/23 14:13 Oxygen Delivery Method Room Air 04/28/23 14:13 BMI result Body Mass Index 35.8 Tobacco/Smoking Status: Tobacco use Status Tobacco use date assessed 04/28/23 04/28/23 14:14 Patient Tobacco Use Status Never used Tobacco 04/28/23 14:14 e-Cigarette/Vaping Use Never Used 04/28/23 14:14 Thrive Assessment: Date of Thrive Assessment Date Thrive assessed 02/17/23 04/28/23 14:14 Const General: cooperative Resp Effort & Inspection: normal respiratory effort Auscultation: clear to auscultation bilaterally Cardio Rate: regular rate Rhythm: regular rhythm Heart sounds: S1 normal heart sound present, S2 normal heart sound present and no murmurs Skin Other: 5 lap sites without signs of infection, well approximated Assessment and Plan Assessment & Plan (1) S/P laparoscopic sleeve gastrectomy: Code(s): Z98.84 - Bariatric surgery status (2) Obesity (BMI 30-39.9): Code(s): E66.9 - Obesity, unspecified Orders: Orders MM screening mammo BI Today Z12.31 - Encounter for screening mammogram for malignant neoplasm of breast Coding Level of Care Code Est Pt Level 3 (60111) Diagnoses S/P laparoscopic sleeve gastrectomy Z98.84 Obesity (BMI 30-39.9) E66.9
== END 2023-04-28 16:42 | disposition home or self-care (01) ==
PROVIDERS: PCP Nurse Practitioner Family; Visit Provider Nurse Practitioner Family
DX: E66.9 Obesity, unspecified (principal); Z98.84 Bariatric surgery status; Z68.35 Body mass index [BMI] 35.0-35.9, adult
CPT/HCPCS: 99213

== ENCOUNTER 2023-05-05 15:01 | Outpatient (AMB) | payer BC, SELFPAY ==
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
== END 2023-05-07 12:32 | disposition home or self-care (01) ==
PROVIDERS: PCP Nurse Practitioner Family; Visit Provider Counselor Mental Health
DX: F32.A Depression, unspecified (principal)
CPT/HCPCS: 90834

== ENCOUNTER → 2023-05-05 15:01 | Outpatient (BNVA) | payer BC, SELFPAY | PROVIDERS: PCP Nurse Practitioner Family; Visit Provider Counselor Mental Health ==

== ENCOUNTER 2023-05-11 14:59 | Outpatient (AMB) | payer BC, SELFPAY ==
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
[2023-05-11 15:08] VITALS: BP 128/72; PULSE 78; TEMP 36.3; O2SAT 78; BMI 34.6
== END 2023-05-11 15:34 | disposition home or self-care (01) ==
PROVIDERS: PCP Nurse Practitioner Family; Visit Provider Physician Assistant Surgical
DX: E66.9 Obesity, unspecified (principal); Z68.34 Body mass index [BMI] 34.0-34.9, adult; Z90.3 Acquired absence of stomach [part of]; Z98.84 Bariatric surgery status
CPT/HCPCS: 99024

== ENCOUNTER → 2023-05-11 14:59 | Outpatient (BNVA) | payer BC, SELFPAY | PROVIDERS: PCP Nurse Practitioner Family; Visit Provider Physician Assistant Surgical ==

== ENCOUNTER 2023-06-08 15:12 | Outpatient (AMB) | payer BC, SELFPAY ==
[2023-06-08 12:56] VITALS: BMI 33.5
--- NOTE | 2023-06-08 12:56 | MHC.OFFVISWM ---
Intake VS Expanded 06/08/23 12:56 Height 5 ft Weight 171 lb 9.6 oz BMI 33.5 Body Fat % 41.6 Body Fat Mass 71.4 Fat Free Mass 100.2 Visceral Fat Rating 16 Body Water % 40.1 Body Water Mass 68.8 Muscle Mass/Score 94.2 Basal Metabolic Rate/Score 1,349 Intake Visit Reasons: TV PO LSG 02/16/23 Diabetes Physician Required: No Allergies amoxicillin Adverse Reaction (Mild, Verified 05/11/23 15:08) Abdominal Pain Penicillins Adverse Reaction (Mild, Verified 05/11/23 15:08) Abdominal Pain Medication List - Last Reconciled 06/08/23 by ROGER Gallo albuterol sulfate 90 mcg/actuation 2 puffs inhalation Q6H PRN levonorgestrel (Mirena) 1 device intrauterine HPI HPI Comments History of Present Illness Details This?a?37?yo female who is s/p LSG without hiatal hernia repair on?02/16/2023. Presents for 4 month post op visit. Weight today is 171.6 pounds, with a BMI of 33.5. There has been a 75.6 pound weight loss,(initial weight 247.2 pounds) since starting the program on 09/22/2022 reflecting a 30.5% total body weight loss and a weight loss of 36.3 pounds since surgery (operative weight 207.9 pounds) reflecting a 17.4% TBWL since surgery. No complaints of nausea, emesis, abdominal pain or reflux. Reports infrequent but normal bowel movements every 1-2 days and uses stool softeners regularly. 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 She has been trying to increase exercise on the weekends. (walking or hiking) Present meal plan includes: Celebrate 4 in 1 protein powder, 2 scoops in the 1st shake, 2 scoop in the 2nd shake. 8-10, 11-1, in 8 oz almond milk each meal at 530 pm, 6 forks protein and 4 forks cooked veg drinking 34 oz water ? Exercise routine includes: Not much exercise the last week or two as she is dealing with her ex walk 2-3 miles outside, 2-3 x per week, 460 calories has gym membership [facility] Medical History Stress incontinence Depression, unspecified Fatty liver disease, nonalcoholic Depression COVID-19 Asthma Surgical History S/P laparoscopic sleeve gastrectomy Hx of hand surgery Family History Mother No problems noted. Father Diabetes Brother No problems noted. Son No problems noted. Daughter Asthma Maternal Grandmother Breast cancer Paternal Uncle Colon cancer Paternal Grandfather Colon cancer Social History Household Members: Family Housing: House Are you a primary post acute care nurse practitioner to a significant other at home: No Do you presently have visiting nurse or other home services: No Alcohol intake: current Alcohol intake frequency: holidays/special occasions only Patient Tobacco Use Status: Never used Tobacco e-Cigarette/Vaping Use: Never Used Second Hand Smoke Exposure: No service: No Current occupational status: employed Current occupation: [employer] Current occupational exposures/hazards: Yes Cognitive needs: No Hearing needs: No Vision needs: No Female Reproductive History Menstrual Age of Menarche: 7 Assessment & Plan Assessment & Plan (1) S/P laparoscopic sleeve gastrectomy: Code(s): Z98.84 - Bariatric surgery status Plan: Overall, patient is doing the best that she can with her limited time due to increased work demand. She will continue her current meal plan. Trying to incorporate as much exercise as possible. She suggested she may be able to wake up early a couple of days of the week. We will have her return for a phone appointment in approximately 3-4 weeks and then an in person for her six-month follow-up Telehealth Telehealth Location of provider rendering services: practice address Location of patient: address on file Patient Identification confirmed using: Name, : Yes Telehealth method: voice only Patient verbally consented to treatment: Yes Patient verbally consented to billing insurance company: Yes Patient informed of any privacy concerns related to visit: Yes Minutes spent on Phone/Video with Pt.: 12 Coding Level of Care Code Tele Est Pt Level 2 (66572) Diagnoses S/P laparoscopic sleeve gastrectomy Z98.84 Time Spent (min) 14
== END 2023-06-08 15:23 | disposition home or self-care (01) ==
LOC: HO.HBS 15:12
PROVIDERS: PCP Nurse Practitioner Family; Visit Provider Physician Assistant Surgical
DX: E66.9 Obesity, unspecified (principal); Z68.33 Body mass index [BMI] 33.0-33.9, adult; Z90.3 Acquired absence of stomach [part of]; Z98.84 Bariatric surgery status
CPT/HCPCS: 99442

== ENCOUNTER → 2023-06-08 15:12 | Outpatient (BNVA) | payer BC, SELFPAY | PROVIDERS: PCP Nurse Practitioner Family; Visit Provider Physician Assistant Surgical ==

== ENCOUNTER 2023-08-10 13:36 | Outpatient (AMB) | payer BC, SELFPAY ==
--- NOTE | 2023-08-10 13:39 | MHC.OFFVISWM ---
VS Expanded 08/10/23 13:48 BP 119/69 Blood Pressure Location Rt brachial Blood Pressure Position Sitting Pulse 95 Pulse Source Pulse Oximeter Temp 97.9 F Temperature Source Temporal Artery Scan Pulse Oximetry 96 Oxygen Delivery Method Room Air Height 5 ft Weight 165 lb BMI 32.2 Body Fat % 30.5 Body Fat Mass 50.2 Fat Free Mass 114.6 Visceral Fat Rating 6.0 Body Water % 49.6 Body Water Mass 81.8 Muscle Mass/Score 109.0 Basal Metabolic Rate/Score 1 Intake Visit Reasons: PO LSG 02/16/23 Client Support Analyst Required: No Allergies amoxicillin Adverse Reaction (Mild, Verified 08/10/23 13:43) Abdominal Pain Penicillins Adverse Reaction (Mild, Verified 08/10/23 13:43) Abdominal Pain Medication List - Last Reconciled 08/10/23 by ROGER Gallo albuterol sulfate 90 mcg/actuation 2 puffs inhalation Q6H PRN levonorgestrel (Mirena) 1 device intrauterine HPI Comments Details: This?a?38?yo female who is s/p LSG without hiatal hernia repair on?02/16/2023. Presents for 6 month post op visit. Weight today is 165 pounds, with a BMI of 32.2. There has been a 82.2 pound weight loss,(initial weight 247.2 pounds) since starting the program on 09/22/2022 reflecting a 33.2% total body weight loss and a weight loss of 42.9 pounds since surgery (operative weight 207.9 pounds) reflecting a 20.6% TBWL since surgery. No complaints of nausea, emesis, abdominal pain or reflux. Reports infrequent but normal bowel movements every 1-2 days and uses stool softeners regularly. States that she is sick of drinking all day long and does not want to do the second shake. States snacking on popcorn or protein bar (celebrate) or fruit between 2nd shake and dinner. Not drinking 2nd shake 4-5 days per week over the last month. Did not communicate this. States her goal is to lose at least 20 more pounds. Present meal plan includes: Celebrate 4 in 1 protein powder, 2 scoops in the 1st shake, 2 scoop in the 2nd shake. 8-10, 11-1, in 8 oz almond milk each meal at 530 pm, 6 forks protein and 4 forks cooked veg drinking 45-50 oz water ? Exercise routine includes: couch to [address] [employer], last week ran mile in under 12 minutes. running 3-4 days per week, 400-500 calories per session. has gym membership PF Any post op complications: none FAVIAN: never DM: never HTN: never Hyperlipidemia: never GERD:?0-5 scale ??0 = no symptoms ??1 = symptoms noticeable but not bothersome 2 =symptoms bothersome but not daily ? 3 = symptoms bothersome and daily 4 = symptoms affect daily activities 5 = symptoms are incapacitating, unable to do daily activities ? How bad is the heartburn: 0 ? Heartburn while lying down: 0 ? Heartburn when standing up: 0 ? Heartburn after meals: 0 ? Does heartburn change your diet: 0 ? Does heartburn wake you up from sleep: 0 ? Do you have difficulty swallowin ? Do you have pain with swallowin ? If you take medicine for your reflux, does this affect your daily life: 0 Satisfaction with present condition - satisfied or not satisfied: satisfied [facility] Medical History Stress incontinence Depression, unspecified Fatty liver disease, nonalcoholic Depression COVID-19 Asthma Surgical History S/P laparoscopic sleeve gastrectomy Hx of hand surgery Family History Mother No problems noted. Father Diabetes Brother No problems noted. Son No problems noted. Daughter Asthma Maternal Grandmother Breast cancer Paternal Uncle Colon cancer Paternal Grandfather Colon cancer Social History Household Members: Family Housing: House Are you a primary health care marketing manager to a significant other at home: No Do you presently have visiting nurse or other home services: No Alcohol intake: current Alcohol intake frequency: holidays/special occasions only Patient Tobacco Use Status: Never used Tobacco e-Cigarette/Vaping Use: Never Used Second Hand Smoke Exposure: No service: No Current occupational status: employed Current occupation: [employer] Current occupational exposures/hazards: Yes Cognitive needs: No Hearing needs: No Vision needs: No Female Reproductive History Menstrual Age of Menarche: 7 Physical Exam Const General: cooperative and no acute distress Orientation/consciousness: patient oriented x3 Resp Effort & Inspection: normal respiratory effort Auscultation: clear to auscultation bilaterally Cardio Rate: regular rate Rhythm: regular rhythm GI Inspection: Yes normal to inspection and Yes incision (well healed) Palpation (GI): Soft to palpation and no masses Neuro General: patient oriented x3 Assessment & Plan Assessment & Plan (1) S/P laparoscopic sleeve gastrectomy: Code(s): Z98.84 - Bariatric surgery status Category: Surgical Plan: Patient wishes to change her meal plan to exclude the 2nd shake. She has been excluding it over the last month or so 4-5 times per week. She found herself snacking more between where the 2nd shake would be and dinner when she would avoid the 2nd shake. We will change her meal plan per her request: Celebrate 4 in 1, 2 scoops in 10 oz of unsweetened almond milk or water Celebrate protein bar or Indonesian yogurt Meal with 6 forks protein and 6 forks vegetables Recommend increasing exercise by 1 day. Recommend adding weight training. Check six-month postop labs. Recommend starting bariatric fusion multivitamin, 1 daily and calcium plus D. Return to the office in 6 weeks Recommend communication weekly or at the very least text with any questions or concerns or dissatisfaction with the plan. Orders: Orders Complete Blood Count Auto Diff Today E66.9 - Obesity, unspecified, Z98.84 - Bariatric surgery status Lipid Panel Today E66.9 - Obesity, unspecified, Z98.84 - Bariatric surgery status Vitamin B12 and Folate Today E66.9 - Obesity, unspecified, Z98.84 - Bariatric surgery status Zinc Today E66.9 - Obesity, unspecified, Z98.84 - Bariatric surgery status C Reactive Protein Today E66.9 - Obesity, unspecified, Z98.84 - Bariatric surgery status Vitamin B1 Today E66.9 - Obesity, unspecified, Z98.84 - Bariatric surgery status TSH reflex Free T4 Today E66.9 - Obesity, unspecified, Z98.84 - Bariatric surgery status Basic Metabolic Panel Today E66.9 - Obesity, unspecified, Z98.84 - Bariatric surgery status Insulin Today E66.9 - Obesity, unspecified, Z98.84 - Bariatric surgery status Hemoglobin A1c Today E66.9 - Obesity, unspecified, Z98.84 - Bariatric surgery status IRON PROFILE Today E66.9 - Obesity, unspecified, Z98.84 - Bariatric surgery status Vitamin A Today E66.9 - Obesity, unspecified, Z98.84 - Bariatric surgery status Ferritin Today E66.9 - Obesity, unspecified, Z98.84 - Bariatric surgery status Vitamin D 25-OH Total Today E66.9 - Obesity, unspecified, Z98.84 - Bariatric surgery status
[2023-08-10 13:48] VITALS: BP 119/69; PULSE 95; TEMP 36.6; O2SAT 96; BMI 32.2
== END 2023-08-10 14:15 | disposition home or self-care (01) ==
PROVIDERS: PCP Nurse Practitioner Family; Visit Provider Physician Assistant Surgical
DX: E66.9 Obesity, unspecified (principal); Z68.32 Body mass index [BMI] 32.0-32.9, adult; Z90.3 Acquired absence of stomach [part of]; Z98.84 Bariatric surgery status
CPT/HCPCS: 99214

== ENCOUNTER → 2023-08-10 13:36 | Outpatient (BNVA) | payer BC, SELFPAY | PROVIDERS: PCP Nurse Practitioner Family; Visit Provider Physician Assistant Surgical ==

== ENCOUNTER 2023-08-24 12:15 | Outpatient (REF) | payer BC, SELFPAY ==
--- NOTE | ~2023-08-24 | MM_ITS ---
EXAMINATION: MM SCREENING DIGITAL BREAST TOMOSYNTHESIS, BILATERAL CLINICAL INFORMATION: Screening. Asymptomatic. COMPARISON: Mammography: There are no prior mammograms for comparison. TECHNIQUE: Digital breast tomosynthesis is performed in both the craniocaudal and mediolateral oblique views along with computer-aided detection (CAD). Synthesized 2D images are generated from the tomosynthesis. FINDINGS: The breasts are heterogeneously dense, which may obscure small masses (ACR BI-RADS breast composition Category c). There are no significant masses, abnormal calcifications, or other abnormalities. There are diffuse, bilateral, benign calcifications in each breast. There are no suspicious findings. MM/MM tomosynthesis screening BI IMPRESSION: No mammographic evidence of malignancy. ASSESSMENT: BI-RADS BI-RADS 2 - Benign Findings RECOMMENDATION: Routine annual mammography screening. 1 year F/U This examination should not preclude the clinical evaluation of a suspicious palpable abnormality. This patient's information was entered into a reminder system with a target due date for their next mammogram.
== END 2023-08-24 12:16 | disposition home or self-care (01) ==
LOC: HO.MAMMO 12:15
PROVIDERS: PCP Nurse Practitioner Family; Visit Provider Nurse Practitioner Family
DX: Z12.31 Encounter for screening mammogram for malignant neoplasm of breast (principal)
CPT/HCPCS: 77063; 77067

== ENCOUNTER → 2023-08-24 12:30 | Outpatient (BNV) | payer BC, SELFPAY | PROVIDERS: PCP Nurse Practitioner Family; Visit Provider Radiology Diagnostic Radiology | DX: Z12.31 Encounter for screening mammogram for malignant neoplasm of breast (principal) | CPT/HCPCS: 77063; 77067 ==

== ENCOUNTER 2023-09-21 13:25 | Outpatient (AMB) | payer BC, SELFPAY ==
--- NOTE | 2023-09-21 12:45 | A.OFFVIS_ITS ---
VS Expanded 09/21/23 12:55 Height 5 ft Weight 161 lb 8 oz BMI 31.5 Body Fat % 38.6 Body Fat Mass 62.4 Fat Free Mass 99.4 Visceral Fat Rating 14 Body Water % 42.1 Body Water Mass 68.2 Muscle Mass/Score 93.4 Intake Visit Reasons: tv PO LSG 02/16/23 Allergies amoxicillin Adverse Reaction (Mild, Verified 08/10/23 13:43) Abdominal Pain Penicillins Adverse Reaction (Mild, Verified 08/10/23 13:43) Abdominal Pain HPI Comments Details: This?a?38?yo female who is s/p LSG without hiatal hernia repair on?02/16/2023. Presents for 7 month post op visit. Weight today is 161.8 pounds, with a BMI of 31.5. There has been a 85.4 pound weight loss,(initial weight 247.2 pounds) since starting the program on 09/22/2022 reflecting a 34.5% total body weight loss and a weight loss of 46.1 pounds since surgery (operative weight 207.9 pounds) reflecting a 22.1% TBWL since surgery. No complaints of nausea, emesis, abdominal pain or reflux. Reports infrequent but normal bowel movements every 1- 2 days and uses stool softeners regularly. States that she is doing well and has no complaints. Clothes are fitting better. She is planning to do a 5k on october 09 Present meal plan includes: Celebrate 4 in 1, 2 scoops in 10 oz of unsweetened almond milk or water Celebrate protein bar or Tamazight yogurt Meal with 6 forks protein and 6 forks vegetables drinking 45-50 oz water ? Exercise routine includes: running 5 days per week, 4-5 mi per day, 450-600 calories per session. has gym membership PF, but not going [facility] Medical History Stress incontinence Depression, unspecified Fatty liver disease, nonalcoholic Depression COVID-19 Asthma Surgical History S/P laparoscopic sleeve gastrectomy Hx of hand surgery Family History Mother No problems noted. Father Diabetes Brother No problems noted. Son No problems noted. Daughter Asthma Maternal Grandmother Breast cancer Paternal Uncle Colon cancer Paternal Grandfather Colon cancer Social History Household Members: Family Housing: House Are you a primary health care marketing specialist to a significant other at home: No Do you presently have visiting nurse or other home services: No Alcohol intake: current Alcohol intake frequency: holidays/special occasions only Patient Tobacco Use Status: Never used Tobacco e-Cigarette/Vaping Use: Never Used Second Hand Smoke Exposure: No service: No Current occupational status: employed Current occupation: [employer] Current occupational exposures/hazards: Yes Cognitive needs: No Hearing needs: No Vision needs: No Female Reproductive History Menstrual Age of Menarche: 7 Telehealth Telehealth Telehealth Platform: Telephone Location of provider rendering services: practice address Location of patient: address on file Patient Identification confirmed using: Name, : Yes Telehealth method: voice only Patient verbally consented to treatment: Yes Patient verbally consented to billing insurance company: Yes Patient informed of any privacy concerns related to visit: Yes Minutes spent on Phone/Video with Pt.: 12 Assessment & Plan Assessment & Plan (1) S/P laparoscopic sleeve gastrectomy: Code(s): Z98.84 - Bariatric surgery status Category: Surgical Plan: Overall, patient is doing well. She is training for a 5K running race that she has on October 09. I did suggest that she add elliptical which she has at home to help break any plateau. Continue current meal plan. She has follow-up jose manuel ointment in the office scheduled.
[2023-09-21 12:55] VITALS: BMI 31.5
== END 2023-09-21 13:46 | disposition home or self-care (01) ==
LOC: HO.HBS 13:25
PROVIDERS: PCP Nurse Practitioner Family; Visit Provider Physician Assistant Surgical
DX: E66.9 Obesity, unspecified (principal); Z68.31 Body mass index [BMI] 31.0-31.9, adult; Z90.3 Acquired absence of stomach [part of]; Z98.84 Bariatric surgery status
CPT/HCPCS: 99213

== ENCOUNTER → 2023-09-21 13:25 | Outpatient (BNVA) | payer BC, SELFPAY | PROVIDERS: PCP Nurse Practitioner Family; Visit Provider Physician Assistant Surgical | DX: Z98.84 Bariatric surgery status (principal); E66.9 Obesity, unspecified ==

== ENCOUNTER 2023-11-03 15:05 | Outpatient (AMB) | payer BC, SELFPAY ==
[2023-11-03 15:06] VITALS: BP 118/70; PULSE 78; O2SAT 96; BMI 32.6
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
== END 2023-11-03 16:26 | disposition home or self-care (01) ==
PROVIDERS: PCP Nurse Practitioner Family; Visit Provider Nurse Practitioner Family
DX: Z00.00 Encounter for general adult medical examination without abnormal findings (principal)
CPT/HCPCS: 99396

== ENCOUNTER 2023-12-02 16:18 | Outpatient (AMB) | payer BC, SELFPAY ==
[2023-12-02 09:46] VITALS: BMI 31.9
--- NOTE | 2023-12-02 09:46 | A.OFFVIS_ITS ---
VS Expanded 12/02/23 09:46 Height 5 ft Weight 163 lb 6 oz BMI 31.9 Body Fat % 39.2 Body Fat Mass 64.2 Fat Free Mass 99.4 Visceral Fat Rating 14 Body Water % 41.7 Body Water Mass 68.2 Muscle Mass/Score 93.6 Basal Metabolic Rate/Score 1,331 Intake Visit Reasons: (TV) PO LSG 02/16/23 Allergies amoxicillin Adverse Reaction (Mild, Verified 11/03/23 15:07) Abdominal Pain Penicillins Adverse Reaction (Mild, Verified 11/03/23 15:07) Abdominal Pain HPI Comments Details: This?a?38?yo female who is s/p LSG without hiatal hernia repair on?02/16/2023. Presents for 9 month post op visit. Weight today is 163.6 pounds, with a BMI of 31.9. There has been a 83.6 pound weight loss,(initial weight 247.2 pounds) since starting the program on 09/22/2022 reflecting a 33.8% total body weight loss and a weight loss of 44.3 pounds since surgery (operative weight 207.9 pounds) reflecting a 21.3% TBWL since surgery. No complaints of nausea, emesis, abdominal pain or reflux. Reports infrequent but normal bowel movements every 1- 2 days and uses stool softeners regularly. States that she is doing well and has no complaints. Clothes are fitting better. She is planning to do a 5k on october 09. States that she is having trouble getting 4 in 1 and has tried premier protein RTD. Present meal plan includes: Celebrate 4 in 1, 2 scoops in 10 oz of unsweetened almond milk or water Celebrate protein bar or Maltese yogurt Meal with 6 forks protein and 6 forks vegetables drinking 45-50 oz water ? Exercise routine includes: working extra this month and not exercising. running 5 days per week, 4-5 mi per day, 450-600 calories per session. has gym membership [facility] Medical History Stress incontinence Depression, unspecified Fatty liver disease, nonalcoholic Depression COVID-19 Asthma Surgical History S/P laparoscopic sleeve gastrectomy Hx of hand surgery Family History Mother No problems noted. Father Diabetes Brother No problems noted. Son No problems noted. Daughter Asthma Maternal Grandmother Breast cancer Paternal Uncle Colon cancer Paternal Grandfather Colon cancer Social History Household Members: Family Housing: House Are you a primary care mgr to a significant other at home: No Do you presently have visiting nurse or other home services: No Alcohol intake: current Alcohol intake frequency: holidays/special occasions only Patient Tobacco Use Status: Never used Tobacco e-Cigarette/Vaping Use: Never Used Second Hand Smoke Exposure: No service: No Current occupational status: employed Current occupation: [employer] Current occupational exposures/hazards: Yes Cognitive needs: No Hearing needs: No Vision needs: No Female Reproductive History Menstrual Age of Menarche: 7 Telehealth Telehealth Telehealth Platform: Telephone Location of provider rendering services: other Location of patient: other Patient Identification confirmed using: Name, : Yes Telehealth method: voice only Patient verbally consented to treatment: Yes Patient verbally consented to billing insurance company: Yes Patient informed of any privacy concerns related to visit: Yes Minutes spent on Phone/Video with Pt.: 15 Assessment & Plan Assessment & Plan (1) S/P laparoscopic sleeve gastrectomy: Code(s): Z98.84 - Bariatric surgery status Category: Surgical Plan: Wants to change meal plan for the convenience of the more readily available premier protein RTD shakes Premier protein rtd 8 oz with 4 oz of unsweetened almond milk daily in am Maltese yogurt midday Meal with 6 forks protein and 6 forks vegetables in the evening discussed the importance of exercise and at the very least to increase pace of walking while at work. Try to go to the gym on days not working for 1 hr of cardio. RTC as scheduled
== END 2023-12-02 16:18 | disposition home or self-care (01) ==
LOC: HO.HBS 16:18
PROVIDERS: PCP Nurse Practitioner Family; Visit Provider Physician Assistant Surgical
DX: E66.811 Obesity, class 1 (principal); Z68.31 Body mass index [BMI] 31.0-31.9, adult; Z90.3 Acquired absence of stomach [part of]; Z98.84 Bariatric surgery status
CPT/HCPCS: 98967

== ENCOUNTER → 2023-12-02 16:18 | Outpatient (BNVA) | payer BC, SELFPAY | PROVIDERS: PCP Nurse Practitioner Family; Visit Provider Physician Assistant Surgical | DX: Z98.84 Bariatric surgery status (principal); E66.9 Obesity, unspecified ==

== ENCOUNTER 2024-03-03 10:08 | Outpatient (AMB) | payer BC, SELFPAY ==
--- NOTE | 2024-03-03 10:10 | A.OFFVIS_ITS ---
VS Expanded 03/03/24 10:14 BP 119/71 Blood Pressure Location Rt brachial Blood Pressure Position Sitting Pulse 79 Pulse Source Pulse Oximeter Temp 96.8 F Temperature Source Temporal Artery Scan Pulse Oximetry 99 Oxygen Delivery Method Room Air Height 5 ft Weight 161 lb 3.2 oz BMI 31.5 Body Fat % 33.9 Body Fat Mass 54.6 Fat Free Mass 106.4 Visceral Fat Rating 7.0 Body Water % 47.2 Body Water Mass 76.0 Muscle Mass/Score 101.0 Basal Metabolic Rate/Score 1,456 Intake Visit Reasons: (OV) PO LSG 02/16/23 Diamond Saw Operator Required: No Allergies amoxicillin Adverse Reaction (Mild, Verified 03/03/24 10:19) Abdominal Pain Penicillins Adverse Reaction (Mild, Verified 03/03/24 10:19) Abdominal Pain Medication List - Last Reconciled 03/03/24 by ROGER Gallo albuterol sulfate 90 mcg/actuation 2 puffs inhalation Q6H PRN levonorgestrel (Mirena) 1 device intrauterine HPI Comments Details: This?a?38?yo female who is s/p LSG without hiatal hernia repair on?02/16/2023. Presents for 1 year post op visit. Weight today is 161.2 pounds, with a BMI of 31.5. There has been a 82.2 pound weight loss,(initial weight 247.2 pounds) si nce starting the program on 09/22/2022 reflecting a 33.2% total body weight loss and a weight loss of 42.9 pounds since surgery (operative weight 207.9 pounds) reflecting a 20.6% TBWL since surgery. No complaints of nausea, emesis, abdominal pain or reflux. Reports infrequent but normal bowel movements every 1- 2 days and uses stool softeners regularly. Taking bariatric fusion and luke + D States that she is doing the shake in the morning, the whole thing, she has been working a lot and has not been able to do any exercise. Present meal plan includes: Premier protein rtd 8 oz with 4 oz of unsweetened almond milk daily in am [place] yogurt midday sargento cheese/cashews/banana chips Meal with 6 forks protein and 6 forks vegetables in the evening drinking 45-50 oz water ? Exercise routine includes: nothing formal has gym membership PF Any post op complications: none FAVIAN: never DM: never HTN: never Hyperlipidemia: never GERD:?0-5 scale ??0 = no symptoms ??1 = symptoms noticeable but not bothersome 2 =symptoms bothersome but not daily ? 3 = symptoms bothersome and daily 4 = symptoms affect daily activities 5 = symptoms are incapacitating, unable to do daily activities ? How bad is the heartburn: 0 ? Heartburn while lying down: 0 ? Heartburn when standing up: 0 ? Heartburn after meals: 0 ? Does heartburn change your diet: 0 ? Does heartburn wake you up from sleep: 0 ? Do you have difficulty swallowin ? Do you have pain with swallowin ? If you take medicine for your reflux, does this affect your daily life: 0 Satisfaction with present condition - satisfied or not satisfied: satisfied [facility] Medical History Stress incontinence Depression, unspecified Fatty liver disease, nonalcoholic Depression COVID-19 Asthma Surgical History S/P laparoscopic sleeve gastrectomy Hx of hand surgery Family History Mother No problems noted. Father Diabetes Brother No problems noted. Son No problems noted. Daughter Asthma Maternal Grandmother Breast cancer Paternal Uncle Colon cancer Paternal Grandfather Colon cancer Social History Household Members: Family Housing: House Are you a primary care assistant to a significant other at home: No Do you presently have visiting nurse or other home services: No Alcohol intake: current Alcohol intake frequency: holidays/special occasions only Patient Tobacco Use Status: Never used Tobacco e-Cigarette/Vaping Use: Never Used Second Hand Smoke Exposure: No service: No Current occupational status: employed Current occupation: [employer] Current occupational exposures/hazards: Yes Cognitive needs: No Hearing needs: No Vision needs: No Female Reproductive History Menstrual Age of Menarche: 7 Physical Exam Vital Signs: Last Vital Signs Temp 96.8 F 03/03/24 10:14 Pulse 79 03/03/24 10:14 BP 119/71 03/03/24 10:14 Pulse Ox 99 03/03/24 10:14 Oxygen Delivery Method Room Air 03/03/24 10:14 BMI result Body Mass Index 31.5 Const General: cooperative and no acute distress Orientation/consciousness: patient oriented x3 Resp Effort & Inspection: normal respiratory effort Auscultation: clear to auscultation bilaterally Cardio Rate: regular rate Rhythm: regular rhythm GI Inspection: Yes normal to inspection and Yes incision (well healed) Palpation (GI): Soft to palpation and no masses Neuro General: patient oriented x3 Assessment & Plan Assessment & Plan (1) S/P laparoscopic sleeve gastrectomy: Code(s): Z98.84 - Bariatric surgery status Category: Surgical Plan: Patient given information regarding the right BMI jose manuel. Encouraged to get labs that were ordered in July Encouraged to return to the gym and start exercising Encouraged to text weight weekly as well with any questions or concerns Return to the office 2 months
[2024-03-03 10:14] VITALS: BP 119/71; PULSE 79; TEMP 36; O2SAT 99; BMI 31.5
== END 2024-03-03 10:43 | disposition home or self-care (01) ==
PROVIDERS: PCP Nurse Practitioner Family; Visit Provider Physician Assistant Surgical
DX: E66.811 Obesity, class 1 (principal); Z68.31 Body mass index [BMI] 31.0-31.9, adult; Z90.3 Acquired absence of stomach [part of]; Z98.84 Bariatric surgery status
CPT/HCPCS: 99214

== ENCOUNTER → 2024-03-03 10:08 | Outpatient (BNVA) | payer BC, SELFPAY | PROVIDERS: PCP Nurse Practitioner Family; Visit Provider Physician Assistant Surgical | DX: Z98.84 Bariatric surgery status (principal); E66.9 Obesity, unspecified ==

== ENCOUNTER 2024-05-12 09:00 | Outpatient (AMB) | payer BC, SELFPAY ==
[2024-05-12 08:36] VITALS: BMI 30.3
--- NOTE | 2024-05-12 08:36 | A.OFFVIS_ITS ---
VS Expanded 05/12/24 08:36 Height 5 ft Weight 155 lb 4 oz BMI 30.3 Body Fat % 57.2 Body Fat Mass 36.8 Fat Free Mass 98.2 Visceral Fat Rating 13 Body Water % 43.4 Body Water Mass 67.4 Muscle Mass/Score 92.4 Basal Metabolic Rate/Score 1,334 Intake Visit Reasons: TV PO LSG 02/16/23 Explosive Operator Fuse Required: No Allergies amoxicillin Adverse Reaction (Mild, Verified 03/03/24 10:19) Abdominal Pain Penicillins Adverse Reaction (Mild, Verified 03/03/24 10:19) Abdominal Pain Medication List - Last Reconciled 05/12/24 by ROGER Gallo albuterol sulfate 90 mcg/actuation 2 puffs inhalation Q6H PRN bupropion HCl XL (Wellbutrin XL) 150 mg PO QAM levonorgestrel (Mirena) 1 device intrauterine HPI Comments Details: This?a?39?yo female who is s/p LSG without hiatal hernia repair on?02/16/2023. Presents for 1 year 3 month post op visit. Weight today is 155.4 pounds, with a BMI of 30.1. There has been a 91.8 pound weight loss,(initial weight 247.2 pounds) since starting the program on 09/22/2022 reflecting a 37.1% total body weight loss and a weight loss of 52.5 pounds since surgery (operative weight 207.9 pounds) reflecting a 25.2% TBWL since surgery. No complaints of nausea, emesis, abdominal pain or reflux. Reports infrequent but normal bowel movements every 1-2 days and uses stool softeners regularly. Taking bariatric fusion and luke + D States that she has gained a couple pounds over the last 2 months and she is addressing this with a therapist and she was started on wellbutrin. Present meal plan includes: Premier protein rtd 8 oz with 4 oz of unsweetened almond milk daily in am [place] yogurt midday w granola sargento cheese/cashews/banana chips Meal with 6 forks protein and 6 forks vegetables in the evening drinking 45-50 oz water ? Exercise routine includes: running 2-3 x per week outside 3-6 miles has gym membership PF strength training 1 x per week PFS Medical History Stress incontinence Depression, unspecified Fatty liver disease, nonalcoholic Depression COVID-19 Asthma Surgical History S/P laparoscopic sleeve gastrectomy Hx of hand surgery Family History Mother No problems noted. Father Diabetes Brother No problems noted. Son No problems noted. Daughter Asthma Maternal Grandmother Breast cancer Paternal Uncle Colon cancer Paternal Grandfather Colon cancer Social History Household Members: Family Housing: House Are you a primary care team assistant to a significant other at home: No Do you presently have visiting nurse or other home services: No Alcohol intake: current Alcohol intake frequency: holidays/special occasions only Patient Tobacco Use Status: Never used Tobacco e-Cigarette/Vaping Use: Never Used Second Hand Smoke Exposure: No service: No Current occupational status: employed Current occupation: [employer] Current occupational exposures/hazards: Yes Cognitive needs: No Hearing needs: No Vision needs: No Female Reproductive History Menstrual Age of Menarche: 7 Telehealth Telehealth Telehealth Platform: Telephone Location of provider rendering services: practice address Location of patient: address on file Patient Identification confirmed using: Name, : Yes Telehealth method: voice only Patient verbally consented to treatment: Yes Patient verbally consented to billing insurance company: Yes Patient informed of any privacy concerns related to visit: Yes Minutes spent on Phone/Video with Pt.: 20 Assessment & Plan Assessment & Plan (1) S/P laparoscopic sleeve gastrectomy: Code(s): Z98.84 - Bariatric surgery status Category: Surgical Plan: Overall, patient is doing fairly well. She is exercising as much as she can. She does have job requirements requiring her to work 65 hours a week. She will continue to follow the meal plan and exercise plan. Continue to text weekly with weights and with any questions or concerns. She recently started on Wellbutrin. Plan to follow-up in the office for 18 month postop visit.
== END 2024-05-12 09:28 | disposition home or self-care (01) ==
LOC: HO.HBS 09:10
PROVIDERS: PCP Nurse Practitioner Family; Visit Provider Physician Assistant Surgical
DX: E66.811 Obesity, class 1 (principal); Z68.30 Body mass index [BMI] 30.0-30.9, adult; Z90.3 Acquired absence of stomach [part of]; Z98.84 Bariatric surgery status
CPT/HCPCS: 98967

== ENCOUNTER → 2024-05-12 09:00 | Outpatient (BNVA) | payer BC, SELFPAY | PROVIDERS: PCP Nurse Practitioner Family; Visit Provider Physician Assistant Surgical ==

== ENCOUNTER 2024-08-18 11:00 | Outpatient (AMB) | payer BC, SELFPAY ==
--- NOTE | 2024-08-18 11:09 | A.OFFVIS_ITS ---
VS Expanded 08/18/24 11:15 BP 131/64 Blood Pressure Location Rt brachial Blood Pressure Position Sitting Pulse 71 Pulse Source Pulse Oximeter Temp 97.7 F Temperature Source Temporal Artery Scan Pulse Oximetry 97 Oxygen Delivery Method Room Air Height 5 ft Weight 160 lb BMI 31.2 Body Fat % 29.8 Body Fat Mass 47.6 Fat Free Mass 112.2 Visceral Fat Rating 6.0 Body Water % 50.1 Body Water Mass 80.0 Muscle Mass/Score 106.4 Basal Metabolic Rate/Score 1,512 Intake Visit Reasons: OV PO LSG 02/16/23 Allergies amoxicillin Adverse Reaction (Mild, Verified 08/18/24 11:11) Abdominal Pain Penicillins Adverse Reaction (Mild, Verified 08/18/24 11:11) Abdominal Pain HPI Comments Details: This?a?39?yo female who is s/p LSG without hiatal hernia repair on?02/16/2023. Presents for 1 year 6 month post op visit. Weight today is 160 pounds, with a BMI of 31.2. There has been a 87.2 pound weight loss,(initial weight 247.2 pounds) since starting the program on 09/22/2022 reflecting a 35.2% total body weight loss and a weight loss of 47.9 pounds since surgery (operative weight 207.9 pounds) reflecting a 23% TBWL since surgery. No complaints of nausea, emesis, abdominal pain or reflux. Reports infrequent but normal bowel movements every 1-2 days and uses stool softeners regularly. Taking bariatric fusion and luke + D States that she has gained abput 15 pounds from meds or stress but she has started to lose weight again. She statas she has returned to running Present meal plan includes: Premier protein rtd 8 oz with 4 oz of unsweetened almond milk daily in am [place] yogurt midday w granola sargento cheese/cashews/banana chips Meal with 6 forks protein and 6 forks vegetables in the evening drinking 45-50 oz water ? Exercise routine includes: running 3-5 x per week outside 15-20 miles per week has gym membership PF strength training 1 x per week PFSH Medical History Stress incontinence Depression, unspecified Fatty liver disease, nonalcoholic Depression COVID-19 Asthma Surgical History S/P laparoscopic sleeve gastrectomy Hx of hand surgery Family History Mother No problems noted. Father Diabetes Brother No problems noted. Son No problems noted. Daughter Asthma Maternal Grandmother Breast cancer Paternal Uncle Colon cancer Paternal Grandfather Colon cancer Social History Household Members: Family Housing: House Are you a primary patient care associate to a significant other at home: No Do you presently have visiting nurse or other home services: No Alcohol intake: current Alcohol intake frequency: holidays/special occasions only Patient Tobacco Use Status: Never used Tobacco e-Cigarette/Vaping Use: Never Used Second Hand Smoke Exposure: No service: No Current occupational status: employed Current occupation: [employer] Current occupational exposures/hazards: Yes Cognitive needs: No Hearing needs: No Vision needs: No Female Reproductive History Menstrual Age of Menarche: 7 Physical Exam Vital Signs: Last Vital Signs Temp 97.7 F 08/18/24 11:15 Pulse 71 08/18/24 11:15 BP 131/64 08/18/24 11:15 Pulse Ox 97 08/18/24 11:15 Oxygen Delivery Method Room Air 08/18/24 11:15 BMI result Body Mass Index 31.2 Const General: healthy appearing and no acute distress Resp Effort & Inspection: normal respiratory effort Auscultation: clear to auscultation bilaterally Cardio Rate: regular rate Rhythm: regular rhythm GI Auscultation: normal bowel sounds Extrem General: Yes normal to inspection Assessment & Plan Assessment & Plan (1) S/P laparoscopic sleeve gastrectomy: Code(s): Z98.84 - Bariatric surgery status Category: Surgical Plan: Patient given information regarding right BMI jose manuel. Encouraged to continue running as she has been doing. Incorporate 1 day of yoga. Additionally, encouraged to get labs done. Patient has been having difficulty with excess skin of her thighs. They are rubbing during running. She has noticed ingrown hair irritations. Encouraged to wear longer type shorts to avoid skin on skin rubbing. We will have her return to the office in approximately 2 months. Encouraged to text with any questions or concerns Orders: Orders Insulin Today Z98.84 - Bariatric surgery status Complete Blood Count Auto Diff Today Z98.84 - Bariatric surgery status IRON PROFILE Today Z98.84 - Bariatric surgery status Zinc Today Z98.84 - Bariatric surgery status C Reactive Protein Today Z98.84 - Bariatric surgery status Vitamin B1 Today Z98.84 - Bariatric surgery status Vitamin A Today Z98.84 - Bariatric surgery status Vitamin D 25-OH Total Today Z98.84 - Bariatric surgery status Basic Metabolic Panel Today Z98.84 - Bariatric surgery status Hemoglobin A1c Today Z98.84 - Bariatric surgery status Lipid Panel Today Z98.84 - Bariatric surgery status Vitamin B12 and Folate Today Z98.84 - Bariatric surgery status TSH reflex Free T4 Today Z98.84 - Bariatric surgery status Ferritin Today Z98.84 - Bariatric surgery status
[2024-08-18 11:15] VITALS: BP 131/64; PULSE 71; TEMP 36.5; O2SAT 97; BMI 31.2
== END 2024-08-18 11:44 | disposition home or self-care (01) ==
LOC: HO.HBS 11:01
PROVIDERS: PCP Nurse Practitioner Family; Visit Provider Physician Assistant Surgical
DX: E66.9 Obesity, unspecified (principal); Z68.31 Body mass index [BMI] 31.0-31.9, adult; Z90.3 Acquired absence of stomach [part of]; Z98.84 Bariatric surgery status
CPT/HCPCS: 99213

== ENCOUNTER 2024-09-29 08:54 | Outpatient (AMB) | payer BC, SELFPAY ==
--- NOTE | 2024-09-29 09:01 | MHC.OFFVISWM ---
VS Expanded 09/29/24 09:11 BP 118/61 Blood Pressure Location Rt brachial Blood Pressure Position Sitting Pulse 80 Pulse Source Pulse Oximeter Temp 96.6 F L Temperature Source Temporal Artery Scan Pulse Oximetry 97 Oxygen Delivery Method Room Air Height 5 ft Weight 159 lb 9.6 oz BMI 31.2 Body Fat % 31.0 Body Fat Mass 49.4 Fat Free Mass 110.0 Visceral Fat Rating 6.0 Body Water % 49.2 Body Water Mass 78.4 Muscle Mass/Score 104.4 Basal Metabolic Rate/Score 1,488 Intake Visit Reasons: OV PO LSG 02/16/23 Integration Manager Required: No Allergies amoxicillin Adverse Reaction (Mild, Verified 09/29/24 09:12) Abdominal Pain Penicillins Adverse Reaction (Mild, Verified 09/29/24 09:12) Abdominal Pain Medication List - Last Reconciled 09/29/24 by ROGER Gallo albuterol sulfate 90 mcg/actuation 2 puffs inhalation Q6H PRN bupropion HCl XL (Wellbutrin XL) 150 mg PO QAM levonorgestrel (Mirena) 1 device intrauterine HPI Comments Details: This?a?39?yo female who is s/p LSG without hiatal hernia repair on?02/16/2023. Presents for 1 year 8 month post op visit. Weight today is 159.6 pounds, with a BMI of 31.1. There has been a 87.6 pound weight loss,(initial weight 247.2 pounds) since starting the program on 09/22/2022 reflecting a 35.3% total body weight loss and a weight loss of 48.3 pounds since surgery (operative weight 207.9 pounds) reflecting a 23.2% TBWL since surgery. No complaints of nausea, emesis, abdominal pain or reflux. Reports infrequent but normal bowel movements every 1-2 days and uses stool softeners regularly. Taking bariatric fusion and luke + D States that she has gained abput 15 pounds from meds or stress but she has started to lose weight again. She states she has returned to running. She states over the last couple of months she has been very busy with appointments and travel. She had several instances where she could not follow the meal plan. She is now back to following it more closely. She had difficulty with the right BMI jose manuel but this was discussed and corrected. She will resume following the plan. Present meal plan includes: Premier protein rtd 8 oz with 4 oz of unsweetened almond milk daily in am Italian yogurt midday protein chips Meal with 6 forks protein and 6 forks vegetables in the evening drinking 45-50 oz water ? Exercise routine includes: running 3 x per week outside 15 miles per week has gym membership PF strength training 1 x per week PFS Medical History Stress incontinence Depression, unspecified Fatty liver disease, nonalcoholic Depression COVID-19 Asthma Surgical History S/P laparoscopic sleeve gastrectomy Hx of hand surgery Family History Mother No problems noted. Father Diabetes Brother No problems noted. Son No problems noted. Daughter Asthma Maternal Grandmother Breast cancer Paternal Uncle Colon cancer Paternal Grandfather Colon cancer Social History Household Members: Family Housing: House Are you a primary youth career specialist to a significant other at home: No Do you presently have visiting nurse or other home services: No Alcohol intake: current Alcohol intake frequency: holidays/special occasions only Patient Tobacco Use Status: Never used Tobacco e-Cigarette/Vaping Use: Never Used Second Hand Smoke Exposure: No service: No Current occupational status: employed Current occupation: [employer] Current occupational exposures/hazards: Yes Cognitive needs: No Hearing needs: No Vision needs: No Female Reproductive History Menstrual Age of Menarche: 7 Physical Exam Const General: healthy appearing and no acute distress Resp Effort & Inspection: normal respiratory effort Auscultation: clear to auscultation bilaterally Cardio Rate: regular rate Rhythm: regular rhythm GI Auscultation: normal bowel sounds Extrem General: Yes normal to inspection Assessment & Plan Assessment & Plan (1) S/P laparoscopic sleeve gastrectomy: Code(s): Z98.84 - Bariatric surgery status Category: Surgical Plan: Patient will returned to the right BMI jose manuel, following plan. Encouraged to add a couple of days at the gym using cardiovascular equipment such as the rowing machine or recumbent bike. She is running 3 days per week, 5 miles per session so these other exercises we will activate different muscles in her legs and continue to improve her cardiovascular exercise program. She was reminded to get her 18 month labs done. We will have her return to the office for her 2 year follow-up in January, encouraged to text with any questions or concerns.
[2024-09-29 09:11] VITALS: BP 118/61; PULSE 80; TEMP 35.9; O2SAT 97; BMI 31.2
== END 2024-09-29 09:27 | disposition home or self-care (01) ==
LOC: HO.HBS 08:55
PROVIDERS: PCP Nurse Practitioner Family; Visit Provider Physician Assistant Surgical
DX: E66.3 Overweight (principal); Z68.31 Body mass index [BMI] 31.0-31.9, adult; Z98.84 Bariatric surgery status; Z90.3 Acquired absence of stomach [part of]
CPT/HCPCS: 99213

== ENCOUNTER 2024-11-01 11:04 | Outpatient (REF) | payer BC, SELFPAY ==
--- NOTE | ~2024-11-01 | XR_ITS ---
EXAMINATION: XR SACRUM AND COCCYX CLINICAL INFORMATION: M53.3 - Sacrococcygeal disorders, not elsewhere classified COMPARISON: None available. TECHNIQUE: 2 views of the sacrum and 2 views of the coccyx were obtained. FINDINGS: T-shaped IUD projects in the midline of the upper pelvis. Left SI joint demonstrates mild sclerosis on iliac side and small marginal osteophytes. Hip joints are unremarkable. No visible fracture or acute deformity is noted in the sacrum. XR/XR sacrum coccyx min 2V IMPRESSION: Essentially unremarkable sacrum and coccyx aside from mild degenerative changes in the left SI joint. Electronically signed by: Robbin Mathews MD 11/01/2024 12:12 PM EDT
== END 2024-11-01 11:05 | disposition home or self-care (01) ==
LOC: HO.HMGCX 11:04
PROVIDERS: PCP Nurse Practitioner Family; Visit Provider Nurse Practitioner Family
DX: M53.3 Sacrococcygeal disorders, not elsewhere classified (principal)
CPT/HCPCS: 72220; 96127

== ENCOUNTER 2024-11-01 11:04 | Outpatient (AMB) | payer BC, SELFPAY ==
[2024-11-01 11:06] VITALS: BP 136/86; PULSE 82; RESP 19; TEMP 36.9; O2SAT 97; BMI 32.8
--- NOTE | 2024-11-01 11:06 | MHC.PC.OV ---
Vital Signs 11/01/24 11:06 Height 5 ft Weight 168 lb BMI 32.8 BP 136/86 Blood Pressure Location Lt brachial Position Sitting Respiration 19 Pulse 82 Pulse Source Pulse Oximeter Temp 98.4 F Temp Source Oral Pulse Oximetry (%) 97 Oxygen Delivery Method Room Air Intake Visit Reasons: tail bone pain Intake Note: Pt is here today for a sick visit. Pt c/o tail bone pain for last 6 months. Allergies amoxicillin Adverse Reaction (Mild, Verified 11/01/24 11:15) Abdominal Pain Penicillins Adverse Reaction (Mild, Verified 11/01/24 11:15) Abdominal Pain Medication List - Last Reconciled 11/01/24 by Santo Byrd, CAN REPAIRER- albuterol sulfate 90 mcg/actuation 2 puffs inhalation Q6H PRN bupropion HCl XL (Wellbutrin XL) 150 mg PO QAM levonorgestrel (Mirena) 1 device intrauterine Tobacco use date assessed: 11/01/24 Dental Screening Dental Screen Date: 11/01/24 Did you have a dental visit in the last 12 months?: Yes Did you have a dental problem in the last 6 months where you did not have access to dental care?: No Was dental information given to patient?: Patient has dentist HPI tail bone pain HPI Details Chief Complaint The patient complains of coccyx pain that developed approximately six months ago. History of Present Illness The patient is a 39-year-old female presenting with coccydynia. She reports the onset of coccyx pain approximately six months ago, which worsens when sitting. She denies any recent falls or trauma that could have contributed to the pain. The patient is experiencing weight loss and maintains an active lifestyle. She has a history of two vaginal deliveries, which may be relevant to her current condition. Social History - Exercise: The patient maintains an active lifestyle. Health Maintenance Review of Systems - Musculoskeletal: Reports coccyx pain for six months, worsens when sitting. Denies recent falls or trauma. - Constitutional: Denies fever, chills, cyst formation, drainage Physical Exam General: Cooperative, healthy appearing, comfortable, no acute distress and well developed Orientation: Patient oriented x3 Limitations: No limitations Head: Normal to inspection Ears: Hearing grossly normal bilaterally Nose: Normal external nose present Face and sinus: Normal facial exam Eyes: Appearance normal, both eyes and all related structures Neck: Normal visual inspection and Yes full ROM Respiratory: Normal respiratory effort and able to speak in complete sentences. Clear to auscultation bilaterally Cardiovascular: Regular rate and rhythm. Normal S1 and S2 GI: Normal to inspection. Soft to palpation and nontender Skin: No rashes or lesions noted Neuro: Patient oriented x3 Extremities: Normal to inspection Results Plan 1. Coccydynia The plan includes obtaining an X-ray of the sacral area and coccyx to assess for any underlying structural abnormalities. The patient is advised to purchase a donut cushion to alleviate pressure while sitting. Discussion Notes I discussed with the patient the plan to obtain an X-ray of the sacral area and coccyx to evaluate for any structural issues contributing to her pain. I also recommended the use of a donut cushion to help relieve discomfort while sitting. Patient Instructions - Obtain an X-ray of the sacral area and coccyx as discussed. - Purchase and use a donut cushion to alleviate sitting discomfort. [facility] Medical History Stress incontinence Depression, unspecified Fatty liver disease, nonalcoholic Depression COVID-19 Asthma Surgical History S/P laparoscopic sleeve gastrectomy Hx of hand surgery Family History Mother No problems noted. Father Diabetes Brother No problems noted. Son No problems noted. Daughter Asthma Maternal Grandmother Breast cancer Paternal Uncle Colon cancer Paternal Grandfather Colon cancer Social History Household Members: Family Housing: House Are you a primary point of care specialist to a significant other at home: No Do you presently have visiting nurse or other home services: No Alcohol intake: current Alcohol intake frequency: holidays/special occasions only Patient Tobacco Use Status: Never used Tobacco e-Cigarette/Vaping Use: Never Used Second Hand Smoke Exposure: No service: No Current occupational status: employed Current occupation: [employer] Current occupational exposures/hazards: Yes Cognitive needs: No Hearing needs: No Vision needs: Yes Female Reproductive History Menstrual Age of Menarche: 7 Questionnaire PHQ-9 Over the last 2 weeks, how often have you been bothered by any of the following problems? 1. Little interest or pleasure in doing things: not at all 2. Feeling down, depressed, or hopeless: not at all 3. Trouble falling or staying asleep, or sleeping too much: not at all 4. Feeling tired or having little energy: several days 5. Poor appetite or overeating: not at all 6. Feeling bad about yourself - or that you are a failure or have let yourself or your family down: not at all 7. Trouble concentrating on things, such as reading the newspaper or watching television: not at all 8. Moving or speaking so slowly that other people could have noticed. Or the opposite - being so fidgety or restless that you have been moving around a lot more than usual: not at all 9. Thoughts that you would be better off or of hurting yourself in some way: not at all Total score: 1 Depression Screening Interpretation: Negative Depression Screening Done: Yes 38704 - PHQ-9 Billing: Yes Source: Developed by Drs. Julio Fournier, Augusta Sharpe, Moe Culver and colleagues, with an educational shala from [employer]. Thrive Questionnaire Date Thrive assessed: 11/01/24 I am a: Patient What is your living situation today?: I have a steady place to live Within the past 12 months, did the food you bought not last and you didn't have the money to get more?: Never true Within the past 12 months, did you worry whether your food would run out before you got money to buy more?: Never true Do you have trouble paying for medicines?: No Do you have trouble getting transportation to medical appointments?: No Do you have trouble paying your heating and electricity bill?: No Do you have trouble taking care of your child, family member or friend?: No Do you have trouble with day-to-day activities such as bathing, preparing meals, shopping, managing finances, etc.?: No Are you currently unemployed and looking for a job?: No Are you interested in more education?: No Please select the resources that you would like help with: None Currently or been in a relationship where the following occur: Controlled Financially THRIVE Score: 1 AUDIT C Alcohol Use Questionnaire (AUDIT-C) 1. How often do you have a drink containing alcohol?: Monthly or less 2. How many drinks containing alcohol do you have on a typical day when you are drinking?: 1 or 2 3. How often do you have six or more drinks on one occasion?: Never Total Score: 1 RICKEY-7 AMB Questionnaire RICKEY-7 Date RICKEY - 7 assessed: 11/01/24 Feeling nervous, anxious, or on edge: 0 = Not at all Not being able to stop or control worryin = Not at all Worrying too much about different things: 1 = Several days Trouble relaxin = Not at all Being so restless that it is hard to sit still: 0 = Not at all Becoming easily annoyed or irritable: 0 = Not at all Feeling afraid as if something awful might happen: 0 = Not at all Total RICKEY-7 score (0-4 normal; 5-9 mild; 10-14 moderate; 15-21 severe): 1 Source: Developed by Drs. Julio Fournier, Augusta Sharpe, Moe Culver and colleagues, with an educational shala from [employer]. RICKEY-7 Assessment Billing RICKEY-7 Assessment Tool: RICKEY-7 Assessment 29662 Physical exam (Primary Care) Vital Signs: Last Vital Signs Temp 98.4 F 11/01/24 11:06 Pulse 82 11/01/24 11:06 Resp 19 11/01/24 11:06 BP 136/86 11/01/24 11:06 Pulse Ox 97 11/01/24 11:06 Oxygen Delivery Method Room Air 11/01/24 11:06 BMI result Body Mass Index 32.8 Tobacco/Smoking Status: Tobacco use Status Tobacco use date assessed 11/01/24 11/01/24 11:16 Patient Tobacco Use Status Never used Tobacco 11/01/24 11:16 e-Cigarette/Vaping Use Never Used 11/01/24 11:16 PHQ-9: PHQ-9 Score PHQ-9: Total score 1 11/01/24 11:16 Depression Screening Interpretation: Negative Thrive Assessment: Date of Thrive Assessment Date Thrive assessed 11/01/24 11/01/24 11:16 Currently or been in a relationship where the following occur: Controlled Financially Coding Level of Care Code Est Pt Level 3 (89661) Diagnoses Coccyx pain M53.3 Additional Codes RICKEY-7 Assessment Billing - RICKEY-7 Assessment Tool: RICKEY-7 Assessment 85886 ([id number]) PHQ-9 - 47572 - PHQ-9 Billing: Yes ([id number]) Assessment & Plan Assessment & Plan (1) Coccyx pain: Code(s): M53.3 - Sacrococcygeal disorders, not elsewhere classified Category: Medical Plan . Orders: Orders XR sacrum coccyx min 2V Today M53.3 - Sacrococcygeal disorders, not elsewhere classified
== END 2024-11-01 15:58 | disposition home or self-care (01) ==
LOC: HO.HMCC 11:05
PROVIDERS: PCP Nurse Practitioner Family; Visit Provider Nurse Practitioner Family
DX: M53.3 Sacrococcygeal disorders, not elsewhere classified (principal)

== ENCOUNTER → 2024-11-01 11:36 | Outpatient (BNV) | payer BC, SELFPAY | PROVIDERS: PCP Nurse Practitioner Family; Visit Provider Radiology Diagnostic Radiology | DX: M53.3 Sacrococcygeal disorders, not elsewhere classified (principal) | CPT/HCPCS: 72220 ==

== ENCOUNTER 2024-12-29 08:37 | Outpatient (REF) | payer BC, SELFPAY ==
[2024-12-29 14:25] LABS: Resp Syncy Virus RNA Qual PCR NEGATIVE (Negative); SARS COV2 PCR INHOUSE NEGATIVE (Negative)
== END 2024-12-29 08:38 | disposition home or self-care (01) ==
LOC: HO.LAB 08:37
PROVIDERS: PCP Nurse Practitioner Family; Visit Provider Nurse Practitioner Family
DX: R05.1 Acute cough (principal); R09.89 Other specified symptoms and signs involving the circulatory and respiratory systems; Z20.822 Contact with and (suspected) exposure to COVID-19
CPT/HCPCS: 87637

== ENCOUNTER 2024-12-29 08:37 | Outpatient (AMB) | payer BC, SELFPAY ==
[2024-12-29 08:56] VITALS: BP 118/84; PULSE 86; TEMP 37.1; O2SAT 98; BMI 33.6
--- NOTE | 2024-12-29 08:56 | MHC.OFFWIV ---
Intake Vital Signs 12/29/24 08:56 Height 5 ft Weight 172 lb BMI 33.6 BP 118/84 Blood Pressure Location Lt brachial Position Sitting Pulse 86 Pulse Source Pulse Oximeter Temp 98.8 F Temp Source Oral Pulse Oximetry (%) 98 Oxygen Delivery Method Room Air Intake Visit Reasons: EP Cough, loss of voice, congestion Intake Note: pt presents with chest congestion with coughing and loss of voice-states began in sinuses 5 days ago Patient Tobacco Use Status: Never used Tobacco Allergies amoxicillin Adverse Reaction (Mild, Verified 12/29/24 09:10) Abdominal Pain Penicillins Adverse Reaction (Mild, Verified 12/29/24 09:10) Abdominal Pain Do you need a note to return to daycare/school/sports/work: Yes HPI EP Cough, loss of voice, congestion HPI Details This is a 39 year old female patient who presents today with a 5 day history of nasal congestion, cough, and loss of voice. 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 Additionally, she picked up her grandparents from a trip over the weekend, during which her grandmother had tested positive for COVID. Patient took a home test which was negative. She has been taking DayQuil/NyQuil, increasing fluids, drinking tea with honey with minimal relief. She has a history of asthma and has been using albuterol inhaler at home p.r.n.. Cough has been keeping her up at night. Denies any fevers. Has missed work yesterday and today due to illness. Denies any GI symptoms. [facility] Medical History Stress incontinence Depression, unspecified Fatty liver disease, nonalcoholic Depression COVID-19 Asthma Surgical History S/P laparoscopic sleeve gastrectomy Hx of hand surgery Family History Mother No problems noted. Father Diabetes Brother No problems noted. Son No problems noted. Daughter Asthma Maternal Grandmother Breast cancer Paternal Uncle Colon cancer Paternal Grandfather Colon cancer Social History Household Members: Family Housing: House Are you a primary sub acute care nurse to a significant other at home: No Do you presently have visiting nurse or other home services: No Alcohol intake: current Alcohol intake frequency: holidays/special occasions only Patient Tobacco Use Status: Never used Tobacco e-Cigarette/Vaping Use: Never Used Second Hand Smoke Exposure: No service: No Current occupational status: employed Current occupation: [employer] Current occupational exposures/hazards: Yes Cognitive needs: No Hearing needs: No Vision needs: Yes Female Reproductive History Menstrual Age of Menarche: 7 Review of Systems Const All systems reviewed & are unremarkable except as noted in HPI and below Physical Exam Vital Signs: Last Vital Signs Temp 98.8 F 12/29/24 08:56 Pulse 86 12/29/24 08:56 BP 118/84 12/29/24 08:56 Pulse Ox 98 12/29/24 08:56 Oxygen Delivery Method Room Air 12/29/24 08:56 BMI result Body Mass Index 33.6 Const General: cooperative, healthy appearing and no acute distress Limitations: no limitations HEENT Head: Yes normal to inspection Ears: hearing grossly normal bilaterally General nose exam: Normal external nose present Face and sinus: Yes normal facial exam Mouth: Normal oral and palatal mucosa present Throat: Yes posterior oropharynx normal Neck Neck: Yes no lymphadenopathy Resp Effort & Inspection: normal respiratory effort and Actively coughing Quality: actively coughing Auscultation: clear to auscultation bilaterally Cardio Rate: regular rate Rhythm: regular rhythm Skin General skin exam: no rashes or lesions noted Extrem General: Yes capillary refill normal and Yes no clubbing, cyanosis or edema Psych Appearance: grossly normal Mental Status: mental status grossly normal Speech and movement: Normal speech and movement present Assessment & Plan Assessment & Plan (1) Cough: Code(s): R05.9 - Cough, unspecified Qualifiers: Cough type: acute Qualified Code(s): R05.1 - Acute cough Plan: Symptoms consistent with viral upper respiratory infection. Lung sounds are clear. Patient has persistent nonproductive cough which has been keeping her up at night. Will start her on prednisone and also benzonatate. We reviewed indications, use, possible side effects of these medications. COVID/flu/RSV swab was obtained, and patient aware she will be notified of results once these are available. She can continue to take [id number] cold/flu products as needed. Advised to keep up hydration. Work note provided. Patient will return to the clinic if she does not improve with treatment, or if symptoms worsen/new symptoms develop. All questions were answered and patient verbalizes understanding and agrees to plan. Orders: Orders SARS-CoV2/FLU/RSV Today R09.89 - Other specified symptoms and signs involving the circulatory and respiratory systems Medications: New prednisone 40 mg (2 x 20 mg) PO DAILY 10 tabs 0RF 5 days R05.9 - Cough, unspecified benzonatate 100 mg PO BID PRN 14 caps 0RF cough 7 days R05.9 - Cough, unspecified Coding Level of Care Code Est Pt Level 4 (36475) Diagnoses Acute cough R05.1 Cough type: acute
== END 2024-12-29 10:08 | disposition home or self-care (01) ==
PROVIDERS: PCP Nurse Practitioner Family; Visit Provider Nurse Practitioner Family
DX: R05.1 Acute cough (principal)

== ENCOUNTER 2025-02-07 14:23 | Outpatient (AMB) | payer BC, SELFPAY ==
--- NOTE | 2025-02-07 14:27 | MHC.OFFVISWM ---
VS Expanded 02/07/25 14:36 BP 129/72 Blood Pressure Location Lt brachial Blood Pressure Position Sitting Pulse 81 Pulse Source Pulse Oximeter Temp 97.1 F Temperature Source Temporal Artery Scan Pulse Oximetry 98 Oxygen Delivery Method Room Air Height 5 ft Weight 166 lb 6 oz BMI 32.5 Body Fat % 32.2 Body Fat Mass 53.6 Fat Free Mass 112.8 Visceral Fat Rating 7.0 Body Water % 48.5 Body Water Mass 80.6 Muscle Mass/Score 107.2 Basal Metabolic Rate/Score 1,530 Intake Visit Reasons: OV PO LSG 02/16/23 Allergies amoxicillin Adverse Reaction (Mild, Verified 02/07/25 14:31) Abdominal Pain Penicillins Adverse Reaction (Mild, Verified 02/07/25 14:31) Abdominal Pain Medication List - Last Reconciled 02/07/25 by ROGER Siddiqui albuterol sulfate 90 mcg/actuation 2 puffs inhalation Q6H PRN benzonatate 100 mg PO BID PRN 7 days bupropion HCl XL (Wellbutrin XL) 150 mg PO QAM levonorgestrel (Mirena) 1 device intrauterine HPI Comments Details: This a 39 yo female who is s/p LSG without hiatal hernia repair on 02/16/2023. Presents for 2 year post op visit. Weight today is 166.6 pounds, with a BMI of 32.5. Initial weight 247.2 pounds starting the program on 09/22/2022 and operative weight 207.9 pounds. No complaints of nausea, emesis, abdominal pain or reflux. Reports infrequent but normal bowel movements every 1-2 days and uses stool softeners regularly. Taking bariatric fusion and luke + D She reports life stressors, working 50-60 hours per week. She is seeing a therapist in the community. Present meal plan includes: was previously given the Activity [employer] jose manuel Premier protein rtd 8 oz with 4 oz of unsweetened almond milk daily in am Lithuanian yogurt midday protein chips Meal with 6 forks protein and 6 forks vegetables in the evening gets a wakeup wrap from [employer] with a med/large coffee, black with cold foam protein shake during school dinner is fast food- grilled chicken wrap Exercise routine includes: running 3 x per week outside 15 miles per week- has not been doing this as often but plans to restart to train for 10k in April and half marathon in November has gym membership PF strength training 1 x per week [facility] Medical History (Updated 02/07/25 @ 15:04 by ROGER Siddiqui) Bone spur of other site Stress incontinence Depression, unspecified Fatty liver disease, nonalcoholic Depression COVID-19 Asthma Surgical History S/P laparoscopic sleeve gastrectomy Hx of hand surgery Family History Mother No problems noted. Father Diabetes Brother No problems noted. Son No problems noted. Daughter Asthma Maternal Grandmother Breast cancer Paternal Uncle Colon cancer Paternal Grandfather Colon cancer Social History Household Members: Family Housing: House Are you a primary childcare center director to a significant other at home: No Do you presently have visiting nurse or other home services: No Alcohol intake: current Alcohol intake frequency: holidays/special occasions only Patient Tobacco Use Status: Never used Tobacco e-Cigarette/Vaping Use: Never Used Second Hand Smoke Exposure: No service: No Current occupational status: employed Current occupation: [employer] Current occupational exposures/hazards: Yes Cognitive needs: No Hearing needs: No Vision needs: Yes Female Reproductive History Menstrual Age of Menarche: 7 Physical Exam Vital Signs: Last Vital Signs Temp 97.1 F 02/07/25 14:36 Pulse 81 02/07/25 14:36 BP 129/72 02/07/25 14:36 Pulse Ox 98 02/07/25 14:36 Oxygen Delivery Method Room Air 02/07/25 14:36 BMI result Body Mass Index 32.5 Assessment & Plan Assessment & Plan (1) S/P laparoscopic sleeve gastrectomy: Code(s): Z98.84 - Bariatric surgery status Category: Medical (2) Obesity (BMI 30-39.9): Code(s): E66.9 - Obesity, unspecified Category: Medical (3) Fatty liver: Code(s): K76.0 - Fatty (change of) liver, not elsewhere classified Category: Medical Plan Pt has dx of fatty liver, seen on previous US in 2022. Will order Wegovy. She does not have a good meal plan. She is tired of bars and persian yogurt. I discussed with her that her weight has continued to increase over the last few visits. I asked her to at least exchange her breakfast for a protein bar and she was somewhat agreeable. She needs to restart exercise. We discussed that without a good meal plan and exercise regimen it will be very difficult to lose weight. Needs labs, ordered. RTC 3mo. Orders: Orders Hemoglobin A1c Today ROGER Siddiqui Z98.84 - Bariatric surgery status Lipid Panel Today ROGER Siddiqui Z98.84 - Bariatric surgery status IRON PROFILE Today ROGER Siddiqui Z98.84 - Bariatric surgery status Comprehensive Met. Panel Today ROGER Siddiqui Z98.84 - Bariatric surgery status C Reactive Protein Today ROGER Siddiqui Z98.84 - Bariatric surgery status Vitamin A Today ROGER Siddiqui Z98.84 - Bariatric surgery status TSH reflex Free T4 Today ROGER Siddiqui Z98.84 - Bariatric surgery status Vitamin D 25-OH Total Today ROGER Siddiqui Z98.84 - Bariatric surgery status Insulin Today ROGER Siddiqui Z98.84 - Bariatric surgery status Complete Blood Count Auto Diff Today ROGER Siddiqui Z98.84 - Bariatric surgery status Zinc Today ROGER Siddiqui Z98.84 - Bariatric surgery status Vitamin B12 and Folate Today ROGER Siddiqui Z98.84 - Bariatric surgery status Vitamin B1 Today ROGER Siddiqui Z98.84 - Bariatric surgery status Ferritin Today ROGER Siddiqui Z98.84 - Bariatric surgery status Medications: New semaglutide (weight loss) (Wegovy) administer weeks 1 through 4 of therapy 0.25 mg (0.5 mL) subcut QWEEK 2 mL LONDON Mcdowell, [employer] EMPLOYEE
[2025-02-07 14:36] VITALS: BP 129/72; PULSE 81; TEMP 36.2; O2SAT 98; BMI 32.5
== END 2025-02-07 15:10 | disposition home or self-care (01) ==
LOC: HO.HBS 14:23
PROVIDERS: PCP Nurse Practitioner Family; Visit Provider Physician Assistant Surgical
DX: E66.811 Obesity, class 1 (principal); Z68.32 Body mass index [BMI] 32.0-32.9, adult; K76.0 Fatty (change of) liver, not elsewhere classified; Z90.3 Acquired absence of stomach [part of]; Z98.84 Bariatric surgery status
CPT/HCPCS: 99214